=== PATIENT | male | born 1965 | race Caucasian/White ===

== ENCOUNTER 2021-05-31 16:38 | Inpatient (IN) ==
--- NOTE | 2021-05-31 17:13 | Internal Med History&Physical ---
HPI History of Present Illness Patient information: Note initiated : 05/31/21 at 5:03 pm Service Date, if different from initiated Date: [] Patient: John Walker a 55 y/o M admitted on for Diabetic Ketoacidosis. Chief Complaint: [] History of present illness: Mr. Walker is a 55 year old M Presents to the ED in [facility] for generalized weakness and shortness of breath, cough, nausea/vomiting, also complains of abdominal pain abdominal pain. States all the symptoms been going on for about a week. Patient was tested positive for Covid on May 23. Chest x-ray with increased RLL infiltrate and chronic scarring/atelecasis. currently on 3 L NC O2, unknown baseline requirement if any. Patient is cachectic and has a history of dumping syndrome with a history of gastric surgery. He was found to be in DKA with a bicarb of 5 and a pH of 7.13 on VBG. Pseudohyponatremia. Glucose 553. Also hyperkalemic at 6.7, EKG with some peaked T waves and 1 amp of bicarb ordered. Also got calcium gluconate. Lactate within normal limits Vital signs stable. Review of Systems: Pertinent positives as above. Denies headache/fever/chills/chest/diarrhea. Remaining 10 point review of system reviewed negative. [facility] Social History (Updated 05/31/21 @ 17:16 by Franco Flores DO) additional history: SOCIAL HISTORY: Consistent with chronic tobacco use, approximately 1 pack a day. FAMILY HISTORY: Significant for diabetes. PAST MEDICAL HISTORY: Through chart review is consistent with: 1. COPD with a history of chronic infiltrates, status post bronchoscopy with staph in the sputum. 2. Type 2 diabetes. 3. History of short bowel syndrome. 4. History of pancreatitis. 5. Chronic pain syndrome. 6. History of hypertension. 7. Gastroesophageal reflux disease. PAST SURGICAL HISTORY: Significant for: 1. Exploratory laparotomy x2 with partial pancreatectomy and gastrotomy with partial small bowel and large bowel resections for complications of pancreatitis. 2. Splenectomy. 3. Cholecystectomy. ALLERGIES: 1. PENICILLIN CAUSING HIVES. 2. LIBRIUM. 3. LYRICA. [place] [facility] [place]: 1. Duragesic patch. 2. Clonidine 0.1 b.i.d. 3. Metoprolol 100 b.i.d. 4. Lisinopril 10 mg daily. 5. Lantus 6 units daily. 6. Sliding scale insulin. 7. Nexium. 8. Cymbalta 60 mg daily. 9. Flexeril 10 mg b.i.d. 10. Elavil 100 mg daily. 11. Aspirin. MEDS/ALLERGIES Home Medications and Allergies Allergies Allergy/AdvReac Type Severity Reaction Status Date / Time chlordiazepoxide Allergy Severe Difficulty Verified 05/31/21 21:39 [From Librium] Breathing Penicillins Allergy Intermediate Hives Verified 05/31/21 21:39 EXAM Constitutional Exam: General: Alert, Awake, No acute Distress, cachectic Eyes/N/T: EOMI, PERRL, dry MM Head/Neck: neck supple, normocephalic atraumatic CV: RRR, No murmurs, normal s1/s2 Pulm: occaisonal wheeze, nonlabored Abd: soft, TTP lower Quadrants, +BS x4 Ext: no clubbing/cyanosis/edema Neuro: Alert, no focal deficits, moves all extremities, CN 2-12 grossly intact, symmetrical strength b/l upper/lower, sensations intact b/l upper/lower Skin: warm/dry A/P Narrative A/P Narrative: A: *DKA: *Covid pneumonia: *Acute hypoxic respite failure: -on 3L NC *COPD (not on home O2) & chronic scarring on imaging per past notes: *CELESTE on likely CKD II: *Malnutrition with h/o short bowel syndrome *Tobacco abuse: *HTN: *GERD: *Chr pain: *Abd pain: P: -insulin gtt -IVF -f/u chemistry, f/u VBG/BHB tomorrow -Rem(depending on f/u renal fxn)/Dex -IS/Acapella, prn nebs -Proning/mobilization/oob to chair -dietary consult -Medication reconciliation -PT/OT -Smoking cessation counseling -ppx: heparin Time Spent With Patient Time: Total time spent is greater than 50% in coordination of care (as documented) at patient's floor/unit and/or counseling patient:
[2021-05-31] MEDS ORDERED: IPRATROPIUM/ALBUTEROL 3 ML AMPUL.NEB NEB PRN (17:17)
[2021-05-31] MEDS ORDERED: ACETAMINOPHEN 325 MG TABLET PO PRN (17:17)
[2021-05-31] MEDS ORDERED: METOCLOPRAMIDE 10 MG/2 ML VIAL IV PRN (17:17)
[2021-05-31] MEDS ORDERED: REMDESIVIR 200 MG in 0.9 % SODIUM CHLORIDE 250 ML IV ONE (17:22)
[2021-05-31] MEDS ORDERED: REMDESIVIR 100 MG in 0.9 % SODIUM CHLORIDE 250 ML IV SCH (17:30)
[2021-05-31] MEDS ORDERED: LIDOCAINE 2% URO-JET 10 ML JEL.PF.APP UR ONE (21:41)
[2021-05-31] MEDS ORDERED: INSULIN REGULAR, HUMAN 1 UNIT/0.01 ML UNIT ONE (21:53)
[2021-05-31] MEDS: DOCUSATE SODIUM 100 MG CAPSULE PO SCH (22:10)
[2021-05-31] MEDS: FAMOTIDINE/PF 20 MG/2 ML VIAL IV SCH (22:10)
[2021-05-31] MEDS: 0.9 % SODIUM CHLORIDE 10 ML SYRINGE IV SCH (22:11)
[2021-05-31] MEDS: DEXAMETHASONE 10 MG/ML VIAL IV SCH (22:11)
[2021-05-31] MEDS: INSULIN REGULAR, HUMAN 50 UNIT in 0.9 % SODIUM CHLORIDE 99.5 ML IV SCH (22:12)
[2021-05-31] MEDS: 0.9 % SODIUM CHLORIDE 1,000 ML IV SCH ×2 (22:13→23:06)
[2021-05-31] MEDS: HEPARIN 5,000 UNIT/ML VIAL SQ SCH (22:15)
[2021-05-31 23:04] LABS: Appearance,Urine CLEAR (Clear); Bilirubin,Urine Negative (Negative); Color,Urine YELLOW; Culture Indicated,Urine No; Glucose,Urine (UA) >=500 mg/dL (Negative); Ketones,Urine 80 mg/dL (Negative); Leukocyte Esterase,Urine Negative /uL (Negative); Nitrate,Urine Negative (Negative); Protein,Urine Negative (Negative); Urine Blood Negative (Negative); Urine Hyaline Cast 1 /lph (0-2); Urine RBC 0 /hpf (0-3); Urine Squamous Epithelial Cell 0 /hpf (0-4); Urine WBC 0 /hpf (0-4); Urobilinogen,Urine Negative
[2021-05-31 23:20] LABS: Basophils # (Auto) 0.04 K/mcL (0.00-0.30); Basophils % (Auto) 0.1 % (0.0-2.0); Eosinophils # (Auto) 0.06 K/mcL (0.00-0.70); Eosinophils % (Auto) 0.2 % (0.0-7.0); Hematocrit 37.8 % (40.1-51.0); Hemoglobin 12.7 g/dL (13.7-17.5); Lymphocytes # (Auto) 1.34 K/mcL (1.50-4.80); Lymphocytes % (Auto) 4.9 % (15.5-49.0); Mean Cell Volume 93.6 fL (80.0-100.0); Mean Corpuscular HGB Conc 33.6 g/dL (31.0-36.0); Mean Platelet Volume 10.6 fL (7.4-10.4); Monocytes # (Auto) 1.64 K/mcL (0.10-0.90); Monocytes % (Auto) 6.1 % (1.0-12.0); Neutrophils % (Auto) 88.7 % (38.0-78.0); Platelet Count 419 K/mcL (140-440); RBC 4.04 M/mcL (4.63-6.08); Red Cell Distribution Width 13.6 % (11.5-14.5); WBC 27.1 K/mcL (4.5-11.0)
[2021-05-31 23:50] LABS: ALT/SGPT 12 U/L (<40); AST/SGOT 23 U/L (<40); Albumin 3.4 gm/dL (3.2-5.2); Alkaline Phosphatase 158 U/L (39-117); Bilirubin,Direct < 0.2 mg/dL (0-0.3); Bilirubin,Total 0.2 mg/dL (0.1-1.0); Blood Urea Nitrogen 33 mg/dL (6-20); Calcium 9.3 mg/dL (8.6-10.4); Carbon Dioxide 10 mmol/L (22-30); Chloride 92 mmol/L (96-108); Globulin 3.3 gm/dL (2.2-3.7); Glomerular Filtration Rate 39; Glucose 303 mg/dL (70-105); Lactate Dehydrogenase 318 U/L (135-225); Phosphorous 3.4 mg/dL (2.5-4.5); Triglycerides 198 mg/dL (<150); Uric Acid 11.8 mg/dL (2.5-8.0)
[2021-06-01] LABS: Estimated Average Glucose(eAG) 295 mg/dL; Hemoglobin A1C 11.9 % Hgb (4.0-6.0)
[2021-06-01 01:31] LABS: Prealbumin 8.1 mg/dL (20.0-40.0)
[2021-06-01] MEDS: DEXTROSE 5%-NS 1,000 ML IV SCH ×3 (01:34→15:53)
[2021-06-01] MEDS: ONDANSETRON 4 MG/2 ML VIAL IV PRN ×3 (04:39→12:46)
[2021-06-01] MEDS: 0.9 % SODIUM CHLORIDE 10 ML SYRINGE IV SCH ×3 (05:50→20:49)
[2021-06-01] MEDS: INSULIN REGULAR, HUMAN 50 UNIT in 0.9 % SODIUM CHLORIDE 99.5 ML IV SCH (07:17)
[2021-06-01] MEDS ORDERED: HYDROCODONE/APAP 7.5/325MG TABLET PO PRN (07:33)
--- NOTE | 2021-06-01 07:50 | Internal Med Progress Note ---
SUBJECTIVE Subjective Patient information: Note initiated : 06/01/21 at 7:44 am Service Date, if different from initiated Date: [] Patient: John Walker a 55 y/o M admitted on 05/31/21 for Diabetic Ketoacidosis. Chief Complaint: [] Interval history: History of present illness: Mr. Walker is a 55 year old M Presents to the ED in [facility] for generalized weakness and shortness of breath, cough, nausea/vomiting, also complains of abdominal pain abdominal pain. States all the symptoms been going on for about a week. Patient was tested positive for Covid on May 23. Chest x-ray with increased RLL infiltrate and chronic scarring/atelecasis. currently on 3 L NC O2, unknown baseline requirement if any. Patient is cachectic and has a history of dumping syndrome with a history of gastric surgery. He was found to be in DKA with a bicarb of 5 and a pH of 7.13 on VBG. Pseudohyponatremia. Glucose 553. Also hyperkalemic at 6.7, EKG with some peaked T waves and 1 amp of bicarb ordered. Also got calcium gluconate. Lactate within normal limits Vital signs stable. 06/01 Poor sleep last night. DKA improving. On 2 L nasal cannula. Review of Systems: Positive for headache. Denies fever/chills/nausea/vomiting/chest pain/cou gh/dyspnea/diarrhea. Otherwise see above. Constitutional Vitals: Vital Signs Temp Pulse Resp BP Pulse Ox 97.9 F 106 H 19 167/102 93 06/01/21 04:01 06/01/21 07:01 06/01/21 07:01 06/01/21 07:01 06/01/21 07:01 Period Temp Pulse Resp BP Sys/Camara Pulse Ox Last 24 Hr 96.9 F-97.9 F 95-113 19-26 119-182/74-112 89-96 Intake and Output 05/31/21 06/01/21 06/01/21 21:59 05:59 13:59 Intake Total 702 57 Output Total 300 2850 Balance -300 -2148 57 Weight 49.714 kg Intake & Output: Intake & Output 05/31/21 06/01/21 06/01/21 21:59 05:59 13:59 Intake Total 702 57 Output Total 300 2850 Balance -300 -2148 57 Weight 49.714 kg Intake: IV 702 57 Sodium Chloride 0.9% 1,000 ml @ 663 200 mls/hr IV .Q5H [facility] Rx#: [id number] HumuLIN R 50 UNIT In Sodium 39 57 Chloride 0.9% 99.5 ml @ UNIT/ HR IV DUR SHAE Rx#:[id number] Output: Urine Catheter Amount 2850 Void Amount 300 Other: Urine Appearance Clear Clear Uretheral (Farmer) Clear Clear Urine Color Pale Dark Yellow Uretheral (Farmer) Pale Dark Yellow Exam: General: Alert, Awake, No acute Distress, cachectic Eyes/N/T: EOMI, Head/Neck: neck supple, CV: RRR, No murmurs, Pulm: occaisonal wheeze, nonlabored Abd: soft, TTP lower Quadrants but chronic per pt, +BS x4 Ext: no clubbing/cyanosis/edema Neuro: Alert, no focal deficits, moves all extremities, Skin: warm/dry OBJ DATA Labs CBC & Chem 7: 05/31/21 21:45 05/31/21 21:45 Labs: Abnormal Lab Results 05/31/21 05/31/21 05/31/21 21:45 21:45 20:45 WBC 27.1 H RBC 4.04 L Hgb 12.7 L Hct 37.8 L MPV 10.6 H Neut % (Auto) 88.7 H Lymph % (Auto) 4.9 L Lymph # (Auto) 1.34 L [place] # (Auto) 1.64 H Absolute Neutrophils 24.00 H Sodium 132 L Potassium 5.7 H Chloride 92 L Carbon Dioxide 10 L* Anion Gap 30.0 H BUN 33 H Creatinine 1.9 H Glucose 303 H Hemoglobin A1c 11.9 H Osmolality 317 H Uric Acid 11.8 H Alkaline Phosphatase 158 H Lactate Dehydrogenase 318 H Prealbumin 8.1 L Triglycerides 198 H Urine Glucose (UA) Urine Ketones 05/31/21 17:22 WBC RBC Hgb Hct MPV Neut % (Auto) Lymph % (Auto) Lymph # (Auto) [place] # (Auto) Absolute Neutrophils Sodium Potassium Chloride Carbon Dioxide Anion Gap BUN Creatinine Glucose Hemoglobin A1c Osmolality Uric Acid Alkaline Phosphatase Lactate Dehydrogenase Prealbumin Triglycerides Urine Glucose (UA) >=500 A Urine Ketones 80 A Meds: Medications Acetaminophen (Acetaminophen 325 Mg Tablet) 650 mg PO Q4-6HP PRN; Protocol PRN Reason: Per Pain Protocol/Fever > 101 Hydrocodone Bitart/Acetaminophen (Hydrocodone/Apap 7.5/325mg Tablet) 1 tab PO Q6HP PRN; Protocol PRN Reason: Per Pain Protocol Albuterol/Ipratropium (Ipratropium/Albuterol 3 Ml Ampul.Neb) 3 ml NEB Q4HRT PRN PRN Reason: sob Dexamethasone (Dexamethasone 10 Mg/Ml Vial) 6 mg IV DAILY [facility] Last Admin: 05/31/21 22:11 Dose: 6 mg Documented by: Diagnostic Test (Pha) (Accu-Chek 1 Each Strip) 1 each FS Q1 [facility] Last Admin: 06/01/21 07:30 Dose: 1 each Documented by: Docusate Sodium (Docusate Sodium 100 Mg Capsule) 100 mg PO BID [facility] Last Admin: 05/31/21 22:10 Dose: Not Given Documented by: Famotidine (Famotidine/Pf 20 Mg/2 Ml Vial) 20 mg IV HS [facility] Last Admin: 05/31/21 22:10 Dose: 20 mg Documented by: Fentanyl (Fentanyl 25 Mcg Patch) 25 mcg TOPICAL Q72H [facility] Heparin Sodium (Porcine) (Heparin 5,000 Unit/Ml Vial) 5,000 unit SQ Q12 [facility] Last Admin: 05/31/21 22:15 Dose: 5,000 unit Documented by: REMDESIVIR 200 mg/ Sodium (Chloride) 250 mls @ 500 mls/hr IV ONCE ONE Stop: 05/31/21 17:23 Last Admin: 05/31/21 22:43 Dose: Not Given Documented by: REMDESIVIR 100 mg/ Sodium (Chloride) 250 mls @ 500 mls/hr IV Q24H [facility] Stop: 06/03/21 17:31 Last Admin: 05/31/21 22:43 Dose: Not Given Documented by: Insulin Human Regular 50 unit/ (Sodium Chloride) 100 mls @ 0 mls/hr IV DUR [facility]; Protocol Last Titration: 06/01/21 07:19 Dose: 0 unit/h, 0 mls/hr Documented by: Dextrose/Sodium Chloride (Dextrose 5%-Ns Iv Solution) 1,000 mls @ 150 mls/hr IV .Q6H40M [facility] Last Admin: 06/01/21 01:34 Dose: 150 mls/hr Documented by: Metoclopramide HCl (Metoclopramide 10 Mg/2 Ml Vial) 10 mg IV Q6 PRN PRN Reason: nausea] Ondansetron HCl (Ondansetron 4 Mg/2 Ml Vial) 4 mg IV Q4-6HP PRN PRN Reason: Nausea And Vomiting Last Admin: 06/01/21 04:39 Dose: 4 mg Documented by: Sodium Chloride (0.9 % Sodium Chloride 10 Ml Syringe) 10 ml IV Q8 [facility] Last Admin: 06/01/21 05:50 Dose: 10 ml Documented by: A/P Narrative A/P Narrative: A: *DKA-HHS: -A1c 11.9 *Hyperkalemia: 6.7 at outside facility. Improved *Covid pneumonia: *Acute hypoxic respite failure: -on 2L NC *COPD (not on home O2) & chronic scarring on imaging per past notes: *CELESTE on likely CKD II: Cr 2.6 at outside facility *Malnutrition with h/o short bowel syndrome -prealbumin 8 *Tobacco abuse: *HTN: *GERD: *Chr pain/chr abdominal pain: P: -insulin gtt -IVF -f/u chemistry, f/u VBG/BHB -Rem(pending f/u renal fxn)/Dex -IS/Acapella, prn nebs -Proning/mobilization/oob to chair -dietary consult -Medication reconciliation -PT/OT -Smoking cessation counseling -ppx: heparin Time Spent With Patient Time: Total time spent is greater than 50% in coordination of care (as documented) at patient's floor/unit and/or counseling patient: QUALITY VTE Deep Vein Thrombosis/Pulmonary Embolism Present on Admission: No
[2021-06-01 09:00] LABS: ABG Methemoglobin 0.3 % (0.4-1.5); Total Hemoglobin 11.1 gm/Dl (13.5-16.5); VBG Base Excess -2 (-2-2); VBG HCO3 22.5 mmol/L (24.0-28.0); VBG Oxygen Saturation 89.8 % (40.0-70.0); VBG PCO2 36.2 mmHg (41.0-51.0); VBG PH 7.41 U (7.32-7.42); VBG Total CO2 23.6 mmol/L (25.0-29.0)
[2021-06-01] MEDS ORDERED: ENOXAPARIN 40 MG/0.4 ML SYRINGE SQ SCH (09:00)
[2021-06-01] MEDS: HEPARIN 5,000 UNIT/ML VIAL SQ SCH ×2 (09:13→20:47)
[2021-06-01] MEDS: DEXAMETHASONE 10 MG/ML VIAL IV SCH (09:13)
[2021-06-01 09:29] LABS: ALT/SGPT 11 U/L (<40); AST/SGOT 21 U/L (<40); Albumin/Globulin Ratio 0.8 (1.0-2.3); Alkaline Phosphatase 141 U/L (39-117); Bilirubin,Direct < 0.2 mg/dL (0-0.3); Bilirubin,Total 0.3 mg/dL (0.1-1.0); Blood Urea Nitrogen 21 mg/dL (6-20); Calcium 8.9 mg/dL (8.6-10.4); Carbon Dioxide 20 mmol/L (22-30); Chloride 102 mmol/L (96-108); Globulin 3.8 gm/dL (2.2-3.7); Glomerular Filtration Rate 62; Glucose 142 mg/dL (70-105); Lactate Dehydrogenase 321 U/L (135-225); Phosphorous 1.4 mg/dL (2.5-4.5); Triglycerides 90 mg/dL (<150); Uric Acid 9.7 mg/dL (2.5-8.0)
[2021-06-01] MEDS ORDERED: REMDESIVIR 200 MG in 0.9 % SODIUM CHLORIDE 250 ML IV ONE (10:00)
[2021-06-01] MEDS ORDERED: fentaNYL 25 MCG PATCH TOPICAL SCH (10:00)
[2021-06-01] MEDS ORDERED: MAGNESIUM SULFATE 2 GM/50 ML BAG IV ONE (10:07)
[2021-06-01] MEDS: NEUTRA PHOS 1 PACKET PO SCH ×2 (10:16→20:47)
[2021-06-01] MEDS: DOCUSATE SODIUM 100 MG CAPSULE PO SCH ×2 (10:16→20:46)
[2021-06-01] MEDS ORDERED: PROMETHAZINE 25 MG TABLET PO PRN (11:17)
[2021-06-01] MEDS ORDERED: HYDROcodone/APAP (PP) 7.5/325MG TABLET (#4) PO PRN (11:17)
--- NOTE | 2021-06-01 11:21 | XRay Report ---
INDICATION: NG tube placement TECHNIQUE: Supine abdomen. COMPARISON: None FINDINGS:Esophagogastric tube within the stomach. Sidehole of the catheter is at approximately the gastroesophageal junction. There are bilateral, bibasilar infiltrates, right worse than left. There is some small bowel gas but this is nonspecific. There is gas within the transverse colon and splenic flexure. IMPRESSION: Esophagogastric tube in the stomach. Sidehole of the catheter is at the gastroesophageal junction Interpreted and Authenticated by: Ke Geronimo 06/01/21
[2021-06-01] MEDS ORDERED: DEXTROSE 50% 50 ML VIAL IV PRN (11:23)
[2021-06-01] MEDS ORDERED: DEXTROSE 31 GM ORAL.SUSP PO PRN (11:23)
[2021-06-01] MEDS ORDERED: CYCLOBENZAPRINE 10 MG TABLET PO PRN (11:29)
[2021-06-01] MEDS: 0.9 % SODIUM CHLORIDE 1,000 ML IV SCH (11:45)
[2021-06-01] MEDS: INSULIN LISPRO 1 UNIT/0.01 ML UNIT SQ SCH ×4 (11:53→23:59)
[2021-06-01] MEDS: INSULIN GLARGINE, HUMAN 1 UNIT/0.01 ML SQ SCH (12:32)
[2021-06-01 12:41] LABS: Hematocrit 33.3 % (40.1-51.0); Mean Cell Volume 87.2 fL (80.0-100.0); Mean Platelet Volume 10.7 fL (7.4-10.4); Platelet Count 406 K/mcL (140-440); RBC 3.82 M/mcL (4.63-6.08); Red Cell Distribution Width 13.1 % (11.5-14.5); WBC 26.9 K/mcL (4.5-11.0)
[2021-06-01] MEDS ORDERED: [UNRECOGNIZED DRUG - OTHER] PO SCH (13:00)
[2021-06-01] MEDS ORDERED: LIPASE PROTEASE AMYLASE PO SCH (13:00)
[2021-06-01] MEDS: LIPASE/PROTEASE/AMYLASE 1 CAP CAPSULE PO SCH ×3 (13:36→20:47)
[2021-06-01] MEDS ORDERED: IOPAMIDOL 100 ML BOTTLE IV ONE (14:16)
--- NOTE | 2021-06-01 14:50 | Cat Scan Report ---
INDICATION: abdominal pain COMPARISON: Previous CT scans dated 07/12/2020 and 06/10/2019 TECHNIQUE: Axial images were obtained through the abdomen and pelvis. Sagittally and coronally reformatted images. 80 mL Isovue 370 injected intravenously. Oral contrast material was given through the nasogastric tube FINDINGS: Lung bases:Patient has interstitial fibrosis. There are superimposed infiltrates of both lung bases consistent with this patient's known covid pneumonia. Liver:Negative. No focal intrahepatic mass. No focal abnormality. Liver contour is smooth. No evidence for cirrhosis Gallbladder, bilary:Gallbladder is not identified. Previous examination demonstrated intra and extrahepatic bile duct dilatation. Intrahepatic duct dilatation has resolved. Common bile measures 7 mm maximally. No detectable choledocholithiasis Spleen:Spleen is not identified consistent with previous splenectomy Pancreas:Pancreas is suboptimally visualized due to cachexia. No detectable pancreatic mass. Adrenal glands:Negative Kidneys, ureters, bladder:Kidneys are negative. No solid or cystic mass. There is no hydronephrosis. No detectable calculi. There is no hydroureter. Urinary bladder is markedly abnormal. There is a Farmer catheter in place. Despite this the bladder is partially distended and contains gas and urine. Bladder wall is markedly thickened and ulcerated. There is no bladder perforation. Appearance is consistent with severe cystitis. Gastrointestinal:Colon is negative. No detectable colonic mass. Can't constipation. Small bowel is mildly prominent but without mechanical small bowel obstruction. There is contrast material within the colon. Appendix: The appendix is nonvisualized Vascular:Severe atherosclerotic calcification. Infrarenal abdominal aorta is densely calcified. No abdominal aortic aneurysm. There is severe calcification within the common iliac arteries bilaterally. Probable short segment occlusion of the right common iliac artery. External iliac arteries are opacified. Lymphatic:No retroperitoneal or mesenteric adenopathy Mesentery, peritoneum: No free intraperitoneal fluid. No mesenteric or retroperitoneal mass. No intra-abdominal abscess. Reproductive:Prostate is not enlarged Musculoskeletal:Previous L4 kyphoplasty or vertebroplasty. There is a compression deformity of the L1 vertebral body. This is unchanged since 07/12/2020 no lytic lesions. Sacrum is negative. There is no fracture. Pelvis is negative. No fracture or lytic lesions. Hips are negative. No abdominal wall or inguinal hernia There is cachexia with very little subcutaneous fat and almost no intra-abdominal fat. IMPRESSION: 1. Abnormal lungs consistent with pulmonary fibrosis and superimposed acute infiltrate consistent with this patient's known covid pneumonia 2. Previous cholecystectomy. Resolution of intrahepatic bile duct dilatation 3. Previous splenectomy 4. Pancreas is poorly visualized. No pancreatic mass 5. Markedly abnormal urinary bladder. There is a Farmer catheter in place. Bladder wall is significantly thickened with evidence for ulceration. Severe cystitis suspected 6. No intra-abdominal abscess 7. Severe atherosclerotic calcification. Dense calcification of the common iliac arteries with possible occlusion of the right common iliac artery 8. Cachexia The exam was performed using radiation dose optimization techniques including, but not limited to, automated exposure control, adjustment of the mA and/or kV according to patient size and use of iterative reconstruction technique. Interpreted and Authenticated by: Ke Geronimo 06/01/21
[2021-06-01] MEDS: NYSTATIN 500,000 UNITS/5 ML ORAL.SUSP SSW SCH ×3 (15:00→20:46)
[2021-06-01] MEDS: PREGABALIN 100 MG CAPSULE PO SCH ×2 (15:05→20:46)
[2021-06-01] MEDS: FAMOTIDINE/PF 20 MG/2 ML VIAL IV SCH (20:46)
[2021-06-01] MEDS ORDERED: AMITRIPTYLINE 25 MG TABLET PO SCH (21:00)
[2021-06-02] MEDS: 0.9 % SODIUM CHLORIDE 1,000 ML IV SCH (01:41)
[2021-06-02] MEDS: INSULIN LISPRO 1 UNIT/0.01 ML UNIT SQ SCH ×5 (04:00→20:15)
[2021-06-02] MEDS: 0.9 % SODIUM CHLORIDE 10 ML SYRINGE IV SCH ×3 (05:45→20:22)
[2021-06-02 06:35] LABS: Basophils # (Auto) 0.03 K/mcL (0.00-0.30); Basophils % (Auto) 0.1 % (0.0-2.0); Eosinophils # (Auto) 0 K/mcL (0.00-0.70); Eosinophils % (Auto) 0 % (0.0-7.0); Hematocrit 35.8 % (40.1-51.0); Lymphocytes # (Auto) 0.75 K/mcL (1.50-4.80); Lymphocytes % (Auto) 3.7 % (15.5-49.0); Mean Cell Volume 92.7 fL (80.0-100.0); Mean Corpuscular HGB Conc 33.5 g/dL (31.0-36.0); Mean Platelet Volume 10.9 fL (7.4-10.4); Monocytes # (Auto) 0.85 K/mcL (0.10-0.90); Monocytes % (Auto) 4.2 % (1.0-12.0); Platelet Count 423 K/mcL (140-440); RBC 3.86 M/mcL (4.63-6.08); Red Cell Distribution Width 13.9 % (11.5-14.5); WBC 20.4 K/mcL (4.5-11.0)
[2021-06-02 07:09] LABS: ALT/SGPT 13 U/L (<40); AST/SGOT 23 U/L (<40); Albumin 2.9 gm/dL (3.2-5.2); Albumin/Globulin Ratio 0.7 (1.0-2.3); Alkaline Phosphatase 150 U/L (39-117); Bilirubin,Direct < 0.2 mg/dL (0-0.3); Bilirubin,Total 0.2 mg/dL (0.1-1.0); Blood Urea Nitrogen 15 mg/dL (6-20); Calcium 8.7 mg/dL (8.6-10.4); Carbon Dioxide 25 mmol/L (22-30); Chloride 100 mmol/L (96-108); Globulin 3.9 gm/dL (2.2-3.7); Glomerular Filtration Rate 101; Glucose 92 mg/dL (70-105); Lactate Dehydrogenase 359 U/L (135-225); Phosphorous 3.2 mg/dL (2.5-4.5); Triglycerides 84 mg/dL (<150); Uric Acid 6.2 mg/dL (2.5-8.0)
[2021-06-02] MEDS ORDERED: PANTOPRAZOLE 40 MG TABLET PO SCH (07:30)
--- NOTE | 2021-06-02 07:35 | Internal Med Progress Note ---
SUBJECTIVE Subjective Patient information: Note initiated : 06/02/21 at 7:28 am Service Date, if different from initiated Date: [] Patient: John Walker a 55 y/o M admitted on 05/31/21 for Diabetic Ketoacidosis. Chief Complaint: [] Interval history: History of present illness: Mr. Walker is a 55 year old M Presents to the ED in [facility] for generalized weakness and shortness of breath, cough, nausea/vomiting, also complains of abdominal pain abdominal pain. States all the symptoms been going on for about a week. Patient was tested positive for Covid on May 23. Chest x-ray with increased RLL infiltrate and chronic scarring/atelecasis. currently on 3 L NC O2, unknown baseline requirement if any. Patient is cachectic and has a history of dumping syndrome with a history of gastric surgery. He was found to be in DKA with a bicarb of 5 and a pH of 7.13 on VBG. Pseudohyponatremia. Glucose 553. Also hyperkalemic at 6.7, EKG with some peaked T waves and 1 amp of bicarb ordered. Also got calcium gluconate. Lactate within normal limits Vital signs stable. 06/01 Poor sleep last night. DKA improving. On 2 L nasal cannula. 06/02 Laboratory much improved although still has a high white blood cell count. Urine unremarkable. No obvious source of infection. CT abdomen pelvis unremarkable. Will check procalcitonin. Patient currently sleeping no overnight event or new complaints. Awakens to voice but very sleepy. Review of Systems: Constitutional Vitals: Vital Signs Temp Pulse Resp BP Pulse Ox 98.0 F 107 H 21 156/103 92 06/02/21 00:01 06/02/21 05:01 06/02/21 07:01 06/02/21 07:01 06/02/21 07:01 Period Temp Pulse Resp BP Sys/Camara Pulse Ox Last 24 Hr 98.0 F-99.3 F 33-110 16-28 127-166/76-107 89-96 Intake and Output 06/01/21 06/02/21 06/02/21 22:59 05:59 13:59 Intake Total Output Total Balance Weight Intake & Output: Intake & Output 06/01/21 06/02/21 06/02/21 22:59 05:59 13:59 Intake Total Output Total Balance Weight Intake: IV Sodium Chloride 0.9% 1,000 ml @ 75 mls/hr IV .[id number] [facility] Rx#: [id number] Oral Output: Urine Catheter Amount Other: Urine Appearance Uretheral (Farmer) Urine Color Uretheral (Farmer) Urine Odor Uretheral (Farmer) Exam: General: sleeping, No acute Distress, cachectic Eyes/N/T: EOMI, Head/Neck: neck supple, CV: RRR, No murmurs, Pulm: occaisonal wheeze, nonlabored Abd: soft, chronic abdominal tenderness, +BS x4 Ext: no clubbing/cyanosis/edema Neuro: no focal deficits, moves all extremities, Skin: warm/dry OBJ DATA Labs CBC & Chem 7: 06/02/21 05:25 06/02/21 05:25 Labs: Abnormal Lab Results 06/02/21 06/02/21 06/01/21 05:25 05:25 17:53 WBC 20.4 H RBC 3.86 L Hgb 12.0 L Hct 35.8 L MPV 10.9 H Neut % (Auto) 92.0 H Lymph % (Auto) 3.7 L Lymph # (Auto) 0.75 L [place] # (Auto) Absolute Neutrophils 18.79 H ABG Methemoglobin VBG pCO2 VBG pO2 VBG HCO3 VBG Total CO2 VBG O2 Saturation Carboxyhemoglobin Total Hemoglobin Sodium Potassium Chloride Carbon Dioxide Anion Gap BUN Creatinine Glucose Hemoglobin A1c Osmolality Uric Acid Phosphorus Alkaline Phosphatase 150 H Lactate Dehydrogenase 359 H Albumin 2.9 L Globulin 3.9 H Albumin/Globulin Ratio 0.7 L Prealbumin Triglycerides Beta-Hydroxybutyrate 1.00 H Urine Glucose (UA) Urine Ketones 06/01/21 06/01/21 06/01/21 08:30 07:53 07:53 WBC 26.9 H RBC 3.82 L Hgb 12.0 L Hct 33.3 L MPV 10.7 H Neut % (Auto) Lymph % (Auto) Lymph # (Auto) [place] # (Auto) Absolute Neutrophils ABG Methemoglobin 0.3 L VBG pCO2 36.2 L VBG pO2 71.0 H VBG HCO3 22.5 L VBG Total CO2 23.6 L VBG O2 Saturation 89.8 H Carboxyhemoglobin 4.4 H Total Hemoglobin 11.1 L Sodium Potassium Chloride Carbon Dioxide 20 L Anion Gap BUN 21 H Creatinine 1.3 H Glucose 142 H Hemoglobin A1c Osmolality Uric Acid 9.7 H Phosphorus 1.4 L Alkaline Phosphatase 141 H Lactate Dehydrogenase 321 H Albumin 3.0 L Globulin 3.8 H Albumin/Globulin Ratio 0.8 L Prealbumin Triglycerides Beta-Hydroxybutyrate Urine Glucose (UA) Urine Ketones 05/31/21 05/31/21 05/31/21 21:45 21:45 20:45 WBC 27.1 H RBC 4.04 L Hgb 12.7 L Hct 37.8 L MPV 10.6 H Neut % (Auto) 88.7 H Lymph % (Auto) 4.9 L Lymph # (Auto) 1.34 L [place] # (Auto) 1.64 H Absolute Neutrophils 24.00 H ABG Methemoglobin VBG pCO2 VBG pO2 VBG HCO3 VBG Total CO2 VBG O2 Saturation Carboxyhemoglobin Total Hemoglobin Sodium 132 L Potassium 5.7 H Chloride 92 L Carbon Dioxide 10 L* Anion Gap 30.0 H BUN 33 H Creatinine 1.9 H Glucose 303 H Hemoglobin A1c 11.9 H Osmolality 317 H Uric Acid 11.8 H Phosphorus Alkaline Phosphatase 158 H Lactate Dehydrogenase 318 H Albumin Globulin Albumin/Globulin Ratio Prealbumin 8.1 L Triglycerides 198 H Beta-Hydroxybutyrate Urine Glucose (UA) Urine Ketones 05/31/21 17:22 WBC RBC Hgb Hct MPV Neut % (Auto) Lymph % (Auto) Lymph # (Auto) [place] # (Auto) Absolute Neutrophils ABG Methemoglobin VBG pCO2 VBG pO2 VBG HCO3 VBG Total CO2 VBG O2 Saturation Carboxyhemoglobin Total Hemoglobin Sodium Potassium Chloride Carbon Dioxide Anion Gap BUN Creatinine Glucose Hemoglobin A1c Osmolality Uric Acid Phosphorus Alkaline Phosphatase Lactate Dehydrogenase Albumin Globulin Albumin/Globulin Ratio Prealbumin Triglycerides Beta-Hydroxybutyrate Urine Glucose (UA) >=500 A Urine Ketones 80 A Meds: Medications Acetaminophen (Acetaminophen 325 Mg Tablet) 650 mg PO Q4-6HP PRN; Protocol PRN Reason: Per Pain Protocol/Fever > 101 Hydrocodone Bitart/Acetaminophen (Hydrocodone/Apap 7.5/325mg Tablet) 1 tab PO Q6HP PRN; Protocol PRN Reason: Per Pain Protocol Last Admin: 06/01/21 15:54 Dose: 1 tab Documented by: Albuterol/Ipratropium (Ipratropium/Albuterol 3 Ml Ampul.Neb) 3 ml NEB Q4HRT PRN PRN Reason: sob Amitriptyline HCl (Amitriptyline 25 Mg Tablet) 150 mg PO HS [facility] Last Admin: 06/01/21 20:47 Dose: 150 mg Documented by: Lipase/Protease/Amylase (Lipase/Protease/Amylase 1 Cap Capsule) 3 cap PO CCHS [facility] Last Admin: 06/01/21 20:47 Dose: 3 cap Documented by: Cyclobenzaprine HCl (Cyclobenzaprine 10 Mg Tablet) 10 mg PO TIDP PRN PRN Reason: Muscle Spasm Dexamethasone (Dexamethasone 10 Mg/Ml Vial) 6 mg IV DAILY [facility] Last Admin: 06/01/21 09:13 Dose: 6 mg Documented by: Dextrose (Dextrose 50% 50 Ml Vial) 0 ml IV UD PRN PRN Reason: Hypoglycemia Diagnostic Test (Pha) (Accu-Chek 1 Each Strip) 1 each FS Q4 [facility] Last Admin: 06/02/21 04:00 Dose: 1 each Documented by: Docusate Sodium (Docusate Sodium 100 Mg Capsule) 100 mg PO BID [facility] Last Admin: 06/01/21 20:46 Dose: 100 mg Documented by: Duloxetine HCl (Duloxetine 30 Mg Capsule) 60 mg PO DAILY [facility] Famotidine (Famotidine/Pf 20 Mg/2 Ml Vial) 20 mg IV [facility] Last Admin: 06/01/21 20:46 Dose: 20 mg Documented by: Fentanyl (Fentanyl 25 Mcg Patch) 25 mcg TOPICAL Q72H [facility] Last Admin: 06/01/21 08:26 Dose: 25 mcg Documented by: Glucose (Dextrose 31 Gm Oral.Susp) 15 gm PO PRN PRN PRN Reason: Hypoglycemia Heparin Sodium (Porcine) (Heparin 5,000 Unit/Ml Vial) 5,000 unit SQ Q12 [facility] Last Admin: 06/01/21 20:47 Dose: 5,000 unit Documented by: REMDESIVIR 100 mg/ Sodium (Chloride) 250 mls @ 500 mls/hr IV DAILY [facility] Stop: 06/05/21 09:29 Sodium Chloride (Sodium Chloride 0.9%) 1,000 mls @ 75 mls/hr IV .[id number] [facility] Stop: 06/02/21 14:24 Last Admin: 06/02/21 01:41 PST Dose: 75 mls/hr Documented by: Insulin Glargine (Insulin Glargine, Human 1 Unit/0.01 Ml) 20 unit SQ DAILY [facility] Last Admin: 06/01/21 12:32 Dose: 20 units Documented by: Insulin Human Lispro (Insulin Lispro 1 Unit/0.01 Ml Unit) 0 unit SQ Q4 [facility]; Protocol Last Admin: 06/02/21 04:00 Dose: Not Given Documented by: Lisinopril (Lisinopril 20 Mg Tablet) 20 mg PO DAILY [facility] Metoclopramide HCl (Metoclopramide 10 Mg/2 Ml Vial) 10 mg IV Q6 PRN PRN Reason: nausea] Nystatin (Nystatin 500,000 Units/5 Ml Oral.Susp) 500,000 units SSW QID [facility] Last Admin: 06/01/21 20:46 Dose: 500,000 units Documented by: Ondansetron HCl (Ondansetron 4 Mg/2 Ml Vial) 4 mg IV Q4-6HP PRN PRN Reason: Nausea And Vomiting Last Admin: 06/01/21 12:46 Dose: 4 mg Documented by: Pantoprazole Sodium (Pantoprazole 40 Mg Tablet) 40 mg PO QAMAC [facility] Potassium/Phosphorus/Sodium (Neutra Phos 1 Packet) 2 packet PO BID [facility] Last Admin: 06/01/21 20:47 Dose: 2 packet Documented by: Pregabalin (Pregabalin 100 Mg Capsule) 100 mg PO TID [facility] Last Admin: 06/01/21 20:46 Dose: 100 mg Documented by: Promethazine HCl (Promethazine 25 Mg Tablet) 25 mg PO Q4-6HP PRN PRN Reason: Nausea Last Admin: 06/01/21 15:53 Dose: 25 mg Documented by: Sodium Chloride (0.9 % Sodium Chloride 10 Ml Syringe) 10 ml IV Q8 [facility] Last Admin: 06/02/21 05:45 Dose: 10 ml Documented by: ABG Interpretation ABG results: 06/01/21 08:30 ABG Methemoglobin 0.3 L VBG pH 7.41 VBG pCO2 36.2 L VBG pO2 71.0 H VBG HCO3 22.5 L VBG Total CO2 23.6 L VBG O2 Saturation 89.8 H VBG Base Excess -2 A/P Narrative A/P Narrative: A: *DKA-HHS: resolved -A1c 11.9 *Hyperkalemia: 6.7 at outside facility. resolved *Covid pneumonia: -leukocytosis, *Acute hypoxic respite failure: -on 2L NC *COPD (not on home O2) & chronic scarring on imaging per past notes: *CELESTE on likely CKD II: Cr 2.6 at outside facility -resolved *Malnutrition with h/o short bowel syndrome -prealbumin 8 *Tobacco abuse: *HTN: on lisinopril *GERD: *Chr pain/chr abdominal pain: *Chronic pancreatitis: P: -insulin gtt off to now SQ and SSI -IVF off today -Wean O2 as able -Rem/Dex -IS/Acapella, prn nebs -Proning/mobilization/oob to chair -dietary consult -Medication reconciliation -PT/OT -Smoking cessation counseling -ppx: heparin / home ppi Time Spent With Patient Time: Total time spent is greater than 50% in coordination of care (as documented) at patient's floor/unit and/or counseling patient: QUALITY VTE Deep Vein Thrombosis/Pulmonary Embolism Present on Admission: No
[2021-06-02] MEDS: LIPASE/PROTEASE/AMYLASE 1 CAP CAPSULE PO SCH ×4 (08:06→20:16)
--- NOTE | 2021-06-02 08:24 | Discharge Summary ---
Discharge Provider Provider Patient information: Note initiated : 06/02/21 at 8:21 am Service Date, if different from initiated Date: [] Patient: John Walker 55 y/o M admitted on 05/31/21 for Diabetic Ketoacidosis. Chief Complaint: [] Date of admission: 05/31/21 21:13 Primary care physician: Unknown Unknown Discharge Meds Discharge Medications Home Medications Dexilant 80 mg PO DAILY 06/01/21 [History Confirmed 06/01/21 Last Taken Unknown] Tresiba FlexTouch U-100 20 unit SUBCUT DAILY 06/01/21 [History Confirmed 06/01/21 Last Taken Unknown] Zenpep 3 cap PO QID 06/01/21 [History Confirmed 06/01/21 Last Taken Unknown] albuterol sulfate [Ventolin HFA] 2 puff INHALATION Q4-6HP PRN 06/01/21 [History Confirmed 06/01/21 Last Taken Unknown] amitriptyline 150 mg PO QHS 06/01/21 [History Confirmed 06/01/21 Last Taken Unknown] cyclobenzaprine 10 mg PO Q8H PRN 06/01/21 [History Confirmed 06/01/21 Last Taken Unknown] duloxetine 60 mg PO DAILY 06/01/21 [History Confirmed 06/01/21 Last Taken Unknown] ergocalciferol (vitamin D2) [Vitamin D2] 1,250 mcg PO 3XW 06/01/21 [History Confirmed 06/01/21 Last Taken Unknown] fentanyl 1 patch TOPICAL Q72H 06/01/21 [History Confirmed 06/01/21 Last Taken Unknown] hydrocodone-acetaminophen 1 tab PO Q6HP PRN 06/01/21 [History Confirmed 06/01/21 Last Taken Unknown] lisinopril 20 mg PO DAILY 06/01/21 [History Confirmed 06/01/21 Last Taken Unknown] ondansetron 8 - 24 mg TRANSLINGUAL Q4HP PRN 06/01/21 [History Confirmed 06/01/21 Last Taken Unknown] pregabalin 150 mg PO TID 06/01/21 [History Confirmed 06/01/21 Last Taken Unknown] promethazine 25 mg PO Q4-6HP PRN 06/01/21 [History Confirmed 06/01/21 Last Taken Unknown] COURSE Hospital Course Hospital course: Presents to the ED in [place] [facility] for generalized weakness and shortness of breath, cough, nausea/vomiting, also complains of abdominal pain abdominal pain. States all the symptoms been going on for about a week. Patient was tested positive for Covid on May 23. Chest x-ray with increased RLL infiltrate and chronic scarring/atelecasis. currently on 3 L NC O2, unknown baseline requirement if any. Patient is cachectic and has a history of dumping syndrome with a history of gastric surgery. He was found to be in DKA with a bicarb of 5 and a pH of 7.13 on VBG. Pseudohyponatremia. Glucose 553. Also hyperkalemic at 6.7, EKG with some peaked T waves and 1 amp of bicarb ordered. Also got calcium gluconate. Lactate within normal limits Vital signs stable. 06/01 Poor sleep last night. DKA improving. On 2 L nasal cannula. 06/02 Laboratory much improved although still has a high white blood cell count. Urine unremarkable. No obvious source of infection. CT abdomen pelvis unremarkable. Will check procalcitonin. Patient currently sleeping no overnight event or new complaints. Awakens to voice but very sleepy. Patient high risk for readmission given comorbidities and current health status A: *DKA-HHS: resolved -A1c 11.9 *Hyperkalemia: 6.7 at outside facility. resolved *Covid pneumonia: *Acute hypoxic respiratorye failure: -on 2L NC *COPD (not on home O2) & chronic scarring on imaging per past notes: *CELESTE on likely CKD II: Cr 2.6 at outside facility *Malnutrition with h/o short bowel syndrome -prealbumin 8 *Tobacco abuse: *HTN: on lisinopril *GERD: *Chr pain/chr abdominal pain: *Chronic pancreatitis: *Generalized weakness/debility Discharge diagnosis: DKA hyperkalemia Covid pneumonia acute hypoxic respite failure acute kidney Secondary discharge diagnosis: Acute kidney injury COPD malnutrition tobacco abuse hypertension GERD chronic pain chronic pancreatitis Time Spent with Patient Time attestation: Total time spent providing and/or coordinating discharge services: Time spent: Greater than 30 minutes EXAM Constitutional Vitals: Temp Pulse Resp BP Pulse Ox 97.9 F 107 H 16 154/100 91 06/02/21 08:01 06/02/21 05:01 06/02/21 08:01 06/02/21 08:06/02/21 08:01 Discharge Data Data Completed and Pending Labs on day of discharge: Labs from last 24 hours 06/02/21 06/02/21 06/02/21 05:25 05:25 05:25 WBC RBC Hgb Hct MCV MCH MCHC RDW Plt Count MPV Neut % (Auto) Lymph % (Auto) [place] % (Auto) Eos % (Auto) Baso % (Auto) Lymph # (Auto) [place] # (Auto) Eos # (Auto) Baso # (Auto) Absolute Neutrophils Platelet Estimate Pending RBC Morphology Pending Sodium 138 Potassium 4.0 Chloride 100 Carbon Dioxide 25 Anion Gap 13.0 BUN 15 Creatinine 0.8 GFR Calculation 101 Glucose 92 Osmolality Uric Acid 6.2 Calcium 8.7 Phosphorus 3.2 Magnesium 1.6 Total Bilirubin 0.2 Direct Bilirubin < 0.2 GGT 42 AST 23 ALT 13 Alkaline Phosphatase 150 H Lactate Dehydrogenase 359 H Total Protein 6.8 Albumin 2.9 L Globulin 3.9 H Albumin/Globulin Ratio 0.7 L Triglycerides 84 Beta-Hydroxybutyrate Procalcitonin 0.16 H 06/02/21 06/01/21 06/01/21 05:25 17:53 07:53 WBC 20.4 H RBC 3.86 L Hgb 12.0 L Hct 35.8 L MCV 92.7 MCH 31.1 MCHC 33.5 RDW 13.9 Plt Count 423 MPV 10.9 H Neut % (Auto) 92.0 H Lymph % (Auto) 3.7 L [place] % (Auto) 4.2 Eos % (Auto) 0 Baso % (Auto) 0.1 Lymph # (Auto) 0.75 L [place] # (Auto) 0.85 Eos # (Auto) 0 Baso # (Auto) 0.03 Absolute Neutrophils 18.79 H Platelet Estimate RBC Morphology Sodium Potassium Chloride Carbon Dioxide Anion Gap BUN Creatinine GFR Calculation Glucose Osmolality 293 Uric Acid Calcium Phosphorus Magnesium Total Bilirubin Direct Bilirubin GGT AST ALT Alkaline Phosphatase Lactate Dehydrogenase Total Protein Albumin Globulin Albumin/Globulin Ratio Triglycerides Beta-Hydroxybutyrate 1.00 H Procalcitonin 06/01/21 06/01/21 07:53 07:53 WBC 26.9 H RBC 3.82 L Hgb 12.0 L Hct 33.3 L MCV 87.2 MCH 31.4 MCHC 36.0 RDW 13.1 Plt Count 406 MPV 10.7 H Neut % (Auto) TNP Lymph % (Auto) TNP [place] % (Auto) TNP Eos % (Auto) TNP Baso % (Auto) TNP Lymph # (Auto) TNP [place] # (Auto) TNP Eos # (Auto) TNP Baso # (Auto) TNP Absolute Neutrophils TNP Platelet Estimate RBC Morphology Sodium 136 Potassium 4.5 Chloride 102 Carbon Dioxide 20 L Anion Gap 14.0 BUN 21 H Creatinine 1.3 H GFR Calculation 62 Glucose 142 H Osmolality Uric Acid 9.7 H Calcium 8.9 Phosphorus 1.4 L Magnesium 1.6 Total Bilirubin 0.3 Direct Bilirubin < 0.2 GGT 39 AST 21 ALT 11 Alkaline Phosphatase 141 H Lactate Dehydrogenase 321 H Total Protein 6.8 Albumin 3.0 L Globulin 3.8 H Albumin/Globulin Ratio 0.8 L Triglycerides 90 Beta-Hydroxybutyrate Procalcitonin Discharge Plan Patient/Caregiver Discharge Instructions Activity: increase activity as tolerated Diet: Consistent Carbohydrate Activity Restrictions/Additional Instructions: Follow-up with PCP in 3 to 7 days . patient will need home oxygen for Covid pneumonia. Follow-up with dietitian outpatient. Prescriptions: Continued cyclobenzaprine 10 mg tablet 10 mg PO Q8H PRN (Reason: Pain) RF: 0 amitriptyline 150 mg tablet 150 mg PO QHS RF: 0 Dexilant 60 mg capsule,biphase delayed releas 80 mg PO DAILY RF: 0 fentanyl 50 mcg/hr patch 72 hour 1 patch topical Q72H RF: 0 hydrocodone-acetaminophen 7.5-325 mg tablet 1 tab PO Q6HP PRN (Reason: Pain) RF: 0 lisinopril 20 mg tablet 20 mg PO DAILY RF: 0 ondansetron 8 mg tablet,disintegrating 8 - 24 mg translingual Q4HP PRN (Reason: Nausea) RF: 0 promethazine 25 mg tablet 25 mg PO Q4-6HP PRN (Reason: Nausea) RF: 0 pregabalin 150 mg capsule 150 mg PO TID RF: 0 Zenpep 10,000-32,000 -42,000 unit capsule,delayed release(DR/EC) 3 cap PO QID RF: 0 Tresiba FlexTouch U-100 100 unit/mL (3 mL) insulin pen 20 unit SUBCUT DAILY RF: 0 albuterol sulfate [Ventolin HFA] 90 mcg/actuation HFA aerosol inhaler 2 puff INHALATION Q4-6HP PRN (Reason: Shortness Of Breath) RF: 0 duloxetine 60 mg capsule,delayed release(DR/EC) 60 mg PO DAILY RF: 0 ergocalciferol (vitamin D2) [Vitamin D2] 1,250 mcg (50,000 unit) capsule 1,250 mcg PO 3XW RF: 0 Follow Up Plan Patient Disposition: Xfer SNF Prognosis: Undetermined Rehab Potential: Fair I certify that the patient requires SNF services: Yes Overall status at discharge: patient is progressing back to baseline QUALITY VTE Deep Vein Thrombosis/Pulmonary Embolism Present on Admission: No
[2021-06-02 08:45] LABS: Band Neutrophils % 2 % (0-10); Lymphocytes % 5 % (15-49); Monocytes % (Manual) 1 % (1-12); Platelet Estimate NORMAL (Normal); RBC Morphology NORMAL (Normal); Segmented Neutrophils % 92 % (38-78)
[2021-06-02] MEDS ORDERED: MAGNESIUM SULFATE 8.12 MEQ in DEXTROSE 5% IN WATER 50 ML IV ONE (09:00)
[2021-06-02] MEDS ORDERED: LISINOPRIL 20 MG TABLET PO SCH (09:00)
[2021-06-02] MEDS ORDERED: DULoxetine 30 MG CAPSULE PO SCH (09:00)
[2021-06-02] MEDS ORDERED: REMDESIVIR 100 MG in 0.9 % SODIUM CHLORIDE 250 ML IV SCH (09:00)
[2021-06-02] MEDS: DEXAMETHASONE 10 MG/ML VIAL IV SCH (09:14)
[2021-06-02] MEDS: HEPARIN 5,000 UNIT/ML VIAL SQ SCH ×2 (09:14→20:20)
[2021-06-02] MEDS: INSULIN GLARGINE, HUMAN 1 UNIT/0.01 ML SQ SCH (09:15)
[2021-06-02] MEDS: NYSTATIN 500,000 UNITS/5 ML ORAL.SUSP SSW SCH ×4 (09:50→20:17)
[2021-06-02] MEDS: NEUTRA PHOS 1 PACKET PO SCH ×2 (09:50→20:16)
[2021-06-02] MEDS: PREGABALIN 100 MG CAPSULE PO SCH ×3 (09:50→20:16)
[2021-06-02] MEDS: DOCUSATE SODIUM 100 MG CAPSULE PO SCH ×2 (09:50→20:16)
[2021-06-02] MEDS ORDERED: IOPAMIDOL 100 ML BOTTLE IV ONE (11:41)
[2021-06-02] MEDS ORDERED: CYCLOBENZAPRINE 10 MG TABLET PO PRN (11:41)
[2021-06-02] MEDS ORDERED: ACETAMINOPHEN 325 MG TABLET PO PRN (11:41)
[2021-06-02] MEDS ORDERED: 0.9 % SODIUM CHLORIDE 1,000 ML IV SCH (11:41)
[2021-06-02] MEDS ORDERED: IPRATROPIUM/ALBUTEROL 3 ML AMPUL.NEB NEB PRN (11:41)
[2021-06-02] MEDS ORDERED: METOCLOPRAMIDE 10 MG/2 ML VIAL IV PRN (11:41)
[2021-06-02] MEDS ORDERED: PROMETHAZINE 25 MG TABLET PO PRN (11:41)
[2021-06-02] MEDS ORDERED: ONDANSETRON 4 MG/2 ML VIAL IV PRN (11:41)
[2021-06-02] MEDS ORDERED: DEXTROSE 31 GM ORAL.SUSP PO PRN (11:41)
[2021-06-02] MEDS ORDERED: FUROSEMIDE 20 MG/2 ML VIAL IV ONE (12:29)
[2021-06-02] MEDS: LISINOPRIL 20 MG TABLET PO SCH (13:02)
--- NOTE | 2021-06-02 13:28 | XRay Report ---
INDICATION: Increased o2 needs TECHNIQUE: AP portable upright chest x-ray COMPARISON: None FINDINGS: Lungs:Bibasilar pulmonary parenchymal infiltrates with bibasilar predominance. When allowances are made for differences in technique there is been interval worsening.. This is consistent with pneumonia. There is probable bilateral emphysema. Heart, vascular:No significant cardiomegaly. Pulmonary vascularity is normal. No pulmonary edema or pulmonary congestion Mediastinum, fam:No mediastinal widening. No hilar mass Pleura:No pleural fluid. No pleural-based mass or calcification Skeletal:Negative. IMPRESSION: 1. Findings consistent with pneumonia superimposed upon underlying emphysema 2. Interval worsening since 05/31/2021 Interpreted and Authenticated by: Ke Geronimo 06/02/21
[2021-06-02] MEDS ORDERED: LACTOPEROXI/GLUC OXID/POT THIO 1 EACH GEL..EA. TOPICAL PRN (14:24)
[2021-06-02] MEDS: morphine 2 MG/ML VIAL IV PRN ×2 (15:14→20:14)
[2021-06-02] MEDS: DEXTROSE 50% 50 ML VIAL IV PRN (20:13)
[2021-06-02] MEDS: AMITRIPTYLINE 25 MG TABLET PO SCH (20:16)
[2021-06-02] MEDS: FAMOTIDINE/PF 20 MG/2 ML VIAL IV SCH (20:21)
[2021-06-02] MEDS ORDERED: AMITRIPTYLINE 25 MG TABLET PO SCH (21:00)
[2021-06-03] MEDS: INSULIN LISPRO 1 UNIT/0.01 ML UNIT SQ SCH ×7 (00:10→20:53)
[2021-06-03] MEDS: DEXTROSE 50% 50 ML VIAL IV PRN ×2 (00:15→08:40)
[2021-06-03] MEDS: morphine 2 MG/ML VIAL IV PRN ×3 (00:55→20:33)
[2021-06-03] MEDS: 0.9 % SODIUM CHLORIDE 10 ML SYRINGE IV SCH ×3 (05:23→20:35)
[2021-06-03 06:38] LABS: Hematocrit 37.5 % (40.1-51.0); Hemoglobin 12.7 g/dL (13.7-17.5); Mean Corpuscular HGB Conc 33.9 g/dL (31.0-36.0); Platelet Count 420 K/mcL (140-440); RBC 4.12 M/mcL (4.63-6.08); Red Cell Distribution Width 13.9 % (11.5-14.5)
[2021-06-03] MEDS: LIPASE/PROTEASE/AMYLASE 1 CAP CAPSULE PO SCH ×4 (07:04→20:35)
[2021-06-03] MEDS: NEUTRA PHOS 1 PACKET PO SCH ×2 (07:05→20:34)
[2021-06-03] MEDS: DOCUSATE SODIUM 100 MG CAPSULE PO SCH ×2 (07:05→20:34)
[2021-06-03] MEDS: PREGABALIN 100 MG CAPSULE PO SCH ×3 (07:05→20:34)
[2021-06-03] MEDS: DULoxetine 30 MG CAPSULE PO SCH (07:05)
[2021-06-03] MEDS: NYSTATIN 500,000 UNITS/5 ML ORAL.SUSP SSW SCH ×4 (07:08→20:33)
[2021-06-03] MEDS: LISINOPRIL 20 MG TABLET PO SCH (07:08)
[2021-06-03 07:11] LABS: ALT/SGPT 118 U/L (<40); AST/SGOT 319 U/L (<40); Albumin/Globulin Ratio 0.8 (1.0-2.3); Alkaline Phosphatase 685 U/L (39-117); Bilirubin,Direct 0.3 mg/dL (<0.3); Bilirubin,Total 0.6 mg/dL (0.1-1.0); Blood Urea Nitrogen 20 mg/dL (6-20); Calcium 9.7 mg/dL (8.6-10.4); Carbon Dioxide 31 mmol/L (22-30); Chloride 98 mmol/L (96-108); Glomerular Filtration Rate 85; Glucose 82 mg/dL (70-105); Lactate Dehydrogenase 549 U/L (135-225); Phosphorous 2.7 mg/dL (2.5-4.5); Triglycerides 39 mg/dL (<150); Uric Acid 5.5 mg/dL (2.5-8.0)
--- NOTE | 2021-06-03 07:41 | Internal Med Progress Note ---
SUBJECTIVE Subjective Patient information: Note initiated : 06/03/21 at 7:38 am Service Date, if different from initiated Date: [] Patient: John Walker a 55 y/o M admitted on 05/31/21 for Diabetic Ketoacidosis. Chief Complaint: [] Interval history: History of present illness: Mr. Walker is a 55 year old M Presents to the ED in [facility] for generalized weakness and shortness of breath, cough, nausea/vomiting, also complains of abdominal pain abdominal pain. States all the symptoms been going on for about a week. Patient was tested positive for Covid on May 23. Chest x-ray with increased RLL infiltrate and chronic scarring/atelecasis. currently on 3 L NC O2, unknown baseline requirement if any. Patient is cachectic and has a history of dumping syndrome with a history of gastric surgery. He was found to be in DKA with a bicarb of 5 and a pH of 7.13 on VBG. Pseudohyponatremia. Glucose 553. Also hyperkalemic at 6.7, EKG with some peaked T waves and 1 amp of bicarb ordered. Also got calcium gluconate. Lactate within normal limits Vital signs stable. 06/01 Poor sleep last night. DKA improving. On 2 L nasal cannula. 06/02 Laboratory much improved although still has a high white blood cell count. Urine unremarkable. No obvious source of infection. CT abdomen pelvis unremarkable. Will check procalcitonin. Patient currently sleeping no overnight event or new complaints. Awakens to voice but very sleepy. 06/03 Patient feeling much better today. Awake and alert. Liver enzymes jumped quite a bit and will DC remdesivir. Can also be related to possibly hypoxic episode yesterday when he aspirated. Review of Systems: denies headache/fever/chills/nausea/vomiting/chest or abdominal pain/diarrhea. Otherwise see above. Constitutional Vitals: Vital Signs Temp Pulse Resp BP Pulse Ox 97.2 F 49 L 18 152/102 91 06/03/21 04:01 06/03/21 06:01 06/03/21 07:01 06/03/21 07:01 06/03/21 06:01 Period Temp Pulse Resp BP Sys/Camara Pulse Ox Last 24 Hr 97.2 F-98.1 F 29-114 7-27 127-172/72-102 90-100 Intake and Output 06/02/21 06/03/21 06/03/21 21:59 05:59 13:59 Intake Total 1000 Output Total 818 650 Balance 182 -650 Weight 48.081 kg Intake & Output: Intake & Output 06/02/21 06/03/21 06/03/21 21:59 05:59 13:59 Intake Total 1000 Output Total 818 650 Balance 182 -650 Weight 48.081 kg Intake: IV 1000 Sodium Chloride 0.9% 1,000 ml @ 1000 75 mls/hr IV .[id number] [facility] Rx#: [id number] Output: Urine Catheter Amount 818 650 Other: Urine Appearance Clear Clear Urine Color Pale Bright Yellow Exam: General: Awake, no acute Distress, cachectic Eyes/N/T: EOMI, Head/Neck: neck supple, CV: RRR, No murmurs, Pulm: mild rhonchi, nonlabored Abd: soft, chronic abdominal tenderness, +BS x4 Ext: no clubbing/cyanosis/edema Neuro: Alert, no focal deficits, moves all extremities, Skin: warm/dry OBJ DATA Labs CBC & Chem 7: 06/03/21 05:28 06/03/21 05:27 Labs: Abnormal Lab Results 06/03/21 06/03/21 06/02/21 05:28 05:27 05:25 WBC 15.0 H RBC 4.12 L Hgb 12.7 L Hct 37.5 L MPV 11.0 H Neut % (Auto) Lymph % (Auto) Lymph # (Auto) [place] # (Auto) Seg Neutrophils % Lymphocytes % Absolute Neutrophils ABG Methemoglobin VBG pCO2 VBG pO2 VBG HCO3 VBG Total CO2 VBG O2 Saturation Carboxyhemoglobin Total Hemoglobin Sodium Potassium Chloride Carbon Dioxide 31 H Anion Gap BUN Creatinine Glucose Hemoglobin A1c Osmolality Uric Acid Phosphorus Direct Bilirubin 0.3 H GGT 320 H AST 319 H ALT 118 H Alkaline Phosphatase 685 H Lactate Dehydrogenase 549 H Albumin 3.0 L Globulin 4.0 H Albumin/Globulin Ratio 0.8 L Prealbumin Triglycerides Beta-Hydroxybutyrate Procalcitonin 0.16 H Urine Glucose (UA) Urine Ketones 06/02/21 06/02/21 06/02/21 05:25 05:25 05:25 WBC 20.4 H RBC 3.86 L Hgb 12.0 L Hct 35.8 L MPV 10.9 H Neut % (Auto) 92.0 H Lymph % (Auto) 3.7 L Lymph # (Auto) 0.75 L [place] # (Auto) Seg Neutrophils % 92 H Lymphocytes % 5 L Absolute Neutrophils 18.79 H ABG Methemoglobin VBG pCO2 VBG pO2 VBG HCO3 VBG Total CO2 VBG O2 Saturation Carboxyhemoglobin Total Hemoglobin Sodium Potassium Chloride Carbon Dioxide Anion Gap BUN Creatinine Glucose Hemoglobin A1c Osmolality Uric Acid Phosphorus Direct Bilirubin GGT AST ALT Alkaline Phosphatase 150 H Lactate Dehydrogenase 359 H Albumin 2.9 L Globulin 3.9 H Albumin/Globulin Ratio 0.7 L Prealbumin Triglycerides Beta-Hydroxybutyrate Procalcitonin Urine Glucose (UA) Urine Ketones 06/01/21 06/01/21 06/01/21 17:53 08:30 07:53 WBC 26.9 H RBC 3.82 L Hgb 12.0 L Hct 33.3 L MPV 10.7 H Neut % (Auto) Lymph % (Auto) Lymph # (Auto) [place] # (Auto) Seg Neutrophils % Lymphocytes % Absolute Neutrophils ABG Methemoglobin 0.3 L VBG pCO2 36.2 L VBG pO2 71.0 H VBG HCO3 22.5 L VBG Total CO2 23.6 L VBG O2 Saturation 89.8 H Carboxyhemoglobin 4.4 H Total Hemoglobin 11.1 L Sodium Potassium Chloride Carbon Dioxide Anion Gap BUN Creatinine Glucose Hemoglobin A1c Osmolality Uric Acid Phosphorus Direct Bilirubin GGT AST ALT Alkaline Phosphatase Lactate Dehydrogenase Albumin Globulin Albumin/Globulin Ratio Prealbumin Triglycerides Beta-Hydroxybutyrate 1.00 H Procalcitonin Urine Glucose (UA) Urine Ketones 06/01/21 05/31/21 05/31/21 07:53 21:45 21:45 WBC 27.1 H RBC 4.04 L Hgb 12.7 L Hct 37.8 L MPV 10.6 H Neut % (Auto) 88.7 H Lymph % (Auto) 4.9 L Lymph # (Auto) 1.34 L [place] # (Auto) 1.64 H Seg Neutrophils % Lymphocytes % Absolute Neutrophils 24.00 H ABG Methemoglobin VBG pCO2 VBG pO2 VBG HCO3 VBG Total CO2 VBG O2 Saturation Carboxyhemoglobin Total Hemoglobin Sodium 132 L Potassium 5.7 H Chloride 92 L Carbon Dioxide 20 L 10 L* Anion Gap 30.0 H BUN 21 H 33 H Creatinine 1.3 H 1.9 H Glucose 142 H 303 H Hemoglobin A1c Osmolality 317 H Uric Acid 9.7 H 11.8 H Phosphorus 1.4 L Direct Bilirubin GGT AST ALT Alkaline Phosphatase 141 H 158 H Lactate Dehydrogenase 321 H 318 H Albumin 3.0 L Globulin 3.8 H Albumin/Globulin Ratio 0.8 L Prealbumin 8.1 L Triglycerides 198 H Beta-Hydroxybutyrate Procalcitonin Urine Glucose (UA) Urine Ketones 05/31/21 05/31/21 20:45 17:22 WBC RBC Hgb Hct MPV Neut % (Auto) Lymph % (Auto) Lymph # (Auto) [place] # (Auto) Seg Neutrophils % Lymphocytes % Absolute Neutrophils ABG Methemoglobin VBG pCO2 VBG pO2 VBG HCO3 VBG Total CO2 VBG O2 Saturation Carboxyhemoglobin Total Hemoglobin Sodium Potassium Chloride Carbon Dioxide Anion Gap BUN Creatinine Glucose Hemoglobin A1c 11.9 H Osmolality Uric Acid Phosphorus Direct Bilirubin GGT AST ALT Alkaline Phosphatase Lactate Dehydrogenase Albumin Globulin Albumin/Globulin Ratio Prealbumin Triglycerides Beta-Hydroxybutyrate Procalcitonin Urine Glucose (UA) >=500 A Urine Ketones 80 A Meds: Medications Acetaminophen (Acetaminophen 325 Mg Tablet) 650 mg PO Q4-6HP PRN; Protocol PRN Reason: Per Pain Protocol/Fever > 101 Hydrocodone Bitart/Acetaminophen (Hydrocodone/Apap 7.5/325mg Tablet) 1 tab PO Q6HP PRN; Protocol PRN Reason: Per Pain Protocol Albuterol/Ipratropium (Ipratropium/Albuterol 3 Ml Ampul.Neb) 3 ml NEB Q4HRT PRN PRN Reason: sob Last Admin: 06/02/21 12:24 Dose: 3 ml Documented by: Amitriptyline HCl (Amitriptyline 25 Mg Tablet) 25 mg PO HS [facility] Last Admin: 06/02/21 20:16 Dose: Not Given Documented by: Lipase/Protease/Amylase (Lipase/Protease/Amylase 1 Cap Capsule) 3 cap PO CCHS [facility] Last Admin: 06/03/21 07:04 Dose: Not Given Documented by: Cyclobenzaprine HCl (Cyclobenzaprine 10 Mg Tablet) 10 mg PO TIDP PRN PRN Reason: Muscle Spasm Dexamethasone (Dexamethasone 10 Mg/Ml Vial) 6 mg IV DAILY SHAE Dextrose (Dextrose 50% 50 Ml Vial) 0 ml IV UD PRN PRN Reason: Hypoglycemia Last Admin: 06/03/21 00:15 Dose: 25 ml Documented by: Diagnostic Test (Pha) (Accu-Chek 1 Each Strip) 1 each FS Q4 [facility] Last Admin: 06/03/21 04:00 Dose: 1 each Documented by: Docusate Sodium (Docusate Sodium 100 Mg Capsule) 100 mg PO BID [facility] Last Admin: 06/03/21 07:05 Dose: Not Given Documented by: Duloxetine HCl (Duloxetine 30 Mg Capsule) 60 mg PO DAILY [facility] Last Admin: 06/03/21 07:05 Dose: Not Given Documented by: Famotidine (Famotidine/Pf 20 Mg/2 Ml Vial) 20 mg IV HS [facility] Last Admin: 06/02/21 20:21 Dose: 20 mg Documented by: Fentanyl (Fentanyl 25 Mcg Patch) 25 mcg TOPICAL Q72H [facility] Glucose (Dextrose 31 Gm Oral.Susp) 15 gm PO PRN PRN PRN Reason: Hypoglycemia Glucose Oxid/Lactoperoxid/Muramidas (Lactoperoxi/Gluc Oxid/Pot Thio 1 Each Gel..Ea.) 1 each TOPICAL PRN PRN PRN Reason: Dry Mouth Heparin Sodium (Porcine) (Heparin 5,000 Unit/Ml Vial) 5,000 unit SQ Q12 [facility] Last Admin: 06/02/21 20:20 Dose: 5,000 unit Documented by: REMDESIVIR 100 mg/ Sodium (Chloride) 250 mls @ 500 mls/hr IV DAILY [facility] Stop: 06/05/21 09:29 Insulin Glargine (Insulin Glargine, Human 1 Unit/0.01 Ml) 20 unit SQ DAILY [facility] Insulin Human Lispro (Insulin Lispro 1 Unit/0.01 Ml Unit) 0 unit SQ Q4 [facility]; Protocol Last Admin: 06/03/21 04:00 Dose: Not Given Documented by: Labetalol HCl (Labetalol 5 Mg/Ml Ml) 0 mg IV Q2HP PRN PRN Reason: Hypertension Lisinopril (Lisinopril 20 Mg Tablet) 20 mg PO DAILY [facility] Last Admin: 06/03/21 07:08 Dose: Not Given Documented by: Metoclopramide HCl (Metoclopramide 10 Mg/2 Ml Vial) 10 mg IV Q6 PRN PRN Reason: nausea] Morphine Sulfate (Morphine 2 Mg/Ml Vial) 1 - 4 mg IV Q3HP PRN; Protocol PRN Reason: Per Pain Protocol Last Admin: 06/03/21 00:55 Dose: 4 mg Documented by: Nystatin (Nystatin 500,000 Units/5 Ml Oral.Susp) 500,000 units SSW QID [facility] Last Admin: 06/03/21 07:08 Dose: Not Given Documented by: Ondansetron HCl (Ondansetron 4 Mg/2 Ml Vial) 4 mg IV Q4-6HP PRN PRN Reason: Nausea And Vomiting Potassium/Phosphorus/Sodium (Neutra Phos 1 Packet) 2 packet PO BID [facility] Last Admin: 06/03/21 07:05 Dose: Not Given Documented by: Pregabalin (Pregabalin 100 Mg Capsule) 100 mg PO TID [facility] Last Admin: 06/03/21 07:05 Dose: Not Given Documented by: Promethazine HCl (Promethazine 25 Mg Tablet) 25 mg PO Q4-6HP PRN PRN Reason: Nausea Sodium Chloride (0.9 % Sodium Chloride 10 Ml Syringe) 10 ml IV Q8 [facility] Last Admin: 06/03/21 05:23 Dose: 10 ml Documented by: ABG Interpretation ABG results: 06/01/21 08:30 ABG Methemoglobin 0.3 L VBG pH 7.41 VBG pCO2 36.2 L VBG pO2 71.0 H VBG HCO3 22.5 L VBG Total CO2 23.6 L VBG O2 Saturation 89.8 H VBG Base Excess -2 A/P Narrative A/P Narrative: A: *DKA-HHS: resolved -A1c 11.9 *Hyperkalemia: 6.7 at outside facility. resolved *Covid pneumonia: -leukocytosis improving, no bandemia *Aspiration yesterday: *Acute hypoxic respiratory failure: -on 5l oxymask, was on 10L yesterday after aspiration event *COPD (not on home O2) & chronic scarring on imaging per past notes: *CELESTE on likely CKD II: Cr 2.6 at outside facility -resolved *Malnutrition with h/o short bowel syndrome -prealbumin 8 *Tobacco abuse: *HTN: on lisinopril *GERD: *Chr pain/chr abdominal pain: *Chronic pancreatitis: *Transaminitis: 2/2 remdesivir vs hypoxic event vs error (recheck) P: -cont basal (decrease while NPO) and SSI -Rem(stopped for transaminitis)/Dex -will start empiric abx given poor baseline status and elevated WBC ans aspiration -IS/Acapella, prn nebs -Proning/mobilization/oob to chair -NPO, pending ST ev today -dietary consult -PT/OT -Smoking cessation counseling -ppx: heparin / home ppi Time Spent With Patient Time: Total time spent is greater than 50% in coordination of care (as documented) at patient's floor/unit and/or counseling patient: QUALITY VTE Deep Vein Thrombosis/Pulmonary Embolism Present on Admission: No
[2021-06-03 07:59] LABS: Band Neutrophils % 4 % (0-10); Lymphocytes % 5 % (15-49); Monocytes % (Manual) 2 % (1-12); Platelet Estimate NORMAL (Normal); RBC Morphology NORMAL (Normal); Reactive Lymphocytes 1 % (0-2); Segmented Neutrophils % 88 % (38-78)
[2021-06-03] MEDS: cefTRIAXone 2 GM in DEXTROSE 5% IN WATER 50 ML IV SCH (08:00)
[2021-06-03 08:18] LABS: Bilirubin,Direct 0.3 mg/dL (<0.3); Bilirubin,Total 0.6 mg/dL (0.1-1.0)
[2021-06-03] MEDS ORDERED: ENALAPRILAT 1.25 MG/ML VIAL IV PRN (08:53)
[2021-06-03] MEDS: AZITHROMYCIN 500 MG in DEXTROSE 5% IN WATER 250 ML IV SCH (08:59)
[2021-06-03] MEDS ORDERED: INSULIN GLARGINE, HUMAN 1 UNIT/0.01 ML SQ SCH (09:00)
[2021-06-03] MEDS ORDERED: LISINOPRIL 20 MG TABLET PO SCH (09:00)
[2021-06-03] MEDS ORDERED: REMDESIVIR 100 MG in 0.9 % SODIUM CHLORIDE 250 ML IV SCH (09:00)
[2021-06-03] MEDS: INSULIN GLARGINE, HUMAN 1 UNIT/0.01 ML SQ SCH (09:06)
[2021-06-03] MEDS: DEXAMETHASONE 10 MG/ML VIAL IV SCH (09:10)
[2021-06-03] MEDS: HEPARIN 5,000 UNIT/ML VIAL SQ SCH ×2 (09:10→20:33)
[2021-06-03 09:44] LABS: Albumin 3.1 gm/dL (3.2-5.2); Bilirubin,Direct 0.2 mg/dL (<0.3); Bilirubin,Total 0.6 mg/dL (0.1-1.0); Globulin 4.4 gm/dL (2.2-3.7)
[2021-06-03] MEDS: FAMOTIDINE/PF 20 MG/2 ML VIAL IV SCH (20:33)
[2021-06-03] MEDS: AMITRIPTYLINE 25 MG TABLET PO SCH (20:34)
[2021-06-04] MEDS: DEXTROSE 50% 50 ML VIAL IV PRN ×2 (00:15→05:25)
[2021-06-04] MEDS: LABETALOL 5 MG/ML ML IV PRN ×2 (03:04→11:48)
[2021-06-04] MEDS: 0.9 % SODIUM CHLORIDE 10 ML SYRINGE IV SCH ×3 (05:33→21:09)
[2021-06-04 06:39] LABS: Basophils # (Auto) 0.01 K/mcL (0.00-0.30); Basophils % (Auto) 0.1 % (0.0-2.0); Eosinophils # (Auto) 0 K/mcL (0.00-0.70); Eosinophils % (Auto) 0 % (0.0-7.0); Hemoglobin 11.7 g/dL (13.7-17.5); Lymphocytes % (Auto) 11.8 % (15.5-49.0); Mean Cell Volume 92.4 fL (80.0-100.0); Mean Corpuscular HGB Conc 34.4 g/dL (31.0-36.0); Mean Platelet Volume 11.5 fL (7.4-10.4); Monocytes # (Auto) 0.53 K/mcL (0.10-0.90); Monocytes % (Auto) 3.5 % (1.0-12.0); Neutrophils % (Auto) 84.6 % (38.0-78.0); Platelet Count 431 K/mcL (140-440); RBC 3.68 M/mcL (4.63-6.08); Red Cell Distribution Width 14.2 % (11.5-14.5); WBC 15.2 K/mcL (4.5-11.0)
[2021-06-04 07:08] LABS: ALT/SGPT 64 U/L (<40); AST/SGOT 60 U/L (<40); Albumin 2.8 gm/dL (3.2-5.2); Albumin/Globulin Ratio 0.8 (1.0-2.3); Alkaline Phosphatase 463 U/L (39-117); Bilirubin,Direct < 0.2 mg/dL (0-0.3); Bilirubin,Total 0.3 mg/dL (0.1-1.0); Blood Urea Nitrogen 21 mg/dL (6-20); Calcium 9.4 mg/dL (8.6-10.4); Carbon Dioxide 32 mmol/L (22-30); Chloride 98 mmol/L (96-108); Globulin 3.7 gm/dL (2.2-3.7); Glomerular Filtration Rate 101; Glucose 52 mg/dL (70-105); Lactate Dehydrogenase 298 U/L (135-225); Phosphorous 2.8 mg/dL (2.5-4.5); Triglycerides 50 mg/dL (<150); Uric Acid 4.7 mg/dL (2.5-8.0)
[2021-06-04] MEDS: cefTRIAXone 2 GM in DEXTROSE 5% IN WATER 50 ML IV SCH (07:38)
[2021-06-04] MEDS: LIPASE/PROTEASE/AMYLASE 1 CAP CAPSULE PO SCH ×4 (07:40→21:08)
[2021-06-04] MEDS ORDERED: DEXTROSE 31 GM ORAL.SUSP PO PRN (09:26)
[2021-06-04] MEDS ORDERED: DEXTROSE 50% 50 ML VIAL IV PRN (09:26)
--- NOTE | 2021-06-04 09:35 | Internal Med Progress Note ---
SUBJECTIVE Subjective Patient information: Note initiated : 06/04/21 at 9:28 am Service Date, if different from initiated Date: [] Patient: John Walker a 55 y/o M admitted on 05/31/21 for Diabetic Ketoacidosis. Chief Complaint: [DKA, CoVID pneumonia] Interval history: History of present illness: Mr. Walker is a 55 year old M Presents to the ED in [facility] for generalized weakness and shortness of breath, cough, nausea/vomiting, also complains of abdominal pain abdominal pain. States all the symptoms been going on for about a week. Patient was tested positive for Covid on May 23. Chest x-ray with increased RLL infiltrate and chronic scarring/atelecasis. currently on 3 L NC O2, unknown baseline requirement if any. Patient is cachectic and has a history of dumping syndrome with a history of gastric surgery. He was found to be in DKA with a bicarb of 5 and a pH of 7.13 on VBG. Pseudohyponatremia. Glucose 553. Also hyperkalemic at 6.7, EKG with some peaked T waves and 1 amp of bicarb ordered. Also got calcium gluconate. Lactate within normal limits Vital signs stable. 06/01 Poor sleep last night. DKA improving. On 2 L nasal cannula. 06/02 Laboratory much improved although still has a high white blood cell count. Urine unremarkable. No obvious source of infection. CT abdomen pelvis unremarkable. Will check procalcitonin. Patient currently sleeping no overnight event or new complaints. Awakens to voice but very sleepy. 06/03 Patient feeling much better today. Awake and alert. Liver enzymes jumped quite a bit and will DC remdesivir. Can also be related to possibly hypoxic episode yesterday when he aspirated. 06/04: Been afebrile overnight. Currently on 6L/min oxygen. Episodes of hypoglycemia overnight. Poor appetite, on Pureed moderately thick diet while awaiting SLT evaluation. c/o moderate to severe RLQ abdominal pain. c/o mild-moderate SOB. Denies cough. Denies wheezing. Denies fever chills or sweating. Denies nausea vomiting diarrhea, or constipation. Constitutional Vitals: Vital Signs Temp Pulse Resp BP Pulse Ox 36.4 C 49 L 13 151/89 96 06/04/21 09:01 06/03/21 06:01 06/04/21 09:01 06/04/21 09:01 06/04/21 09:01 Period Temp Pulse Resp BP Sys/Camara Pulse Ox Last 24 Hr 36.3 C-36.9 C 7-19 76-173/48-111 84-100 Intake and Output 06/03/21 06/04/21 06/04/21 21:59 05:59 13:59 Intake Total 120 Output Total 200 550 Balance -80 -550 Weight 46.72 kg Intake & Output: Intake & Output 06/03/21 06/04/21 06/04/21 21:59 05:59 13:59 Intake Total 120 Output Total 200 550 Balance -80 -550 Weight 46.72 kg Intake: Oral 120 Output: Urine Catheter Amount 200 550 Other: Urine Appearance Clear Clear Urine Color Light Yu Dark Yellow Urine Odor Normal General appearance: cooperative, disheveled and no acute distress Head Head exam: Present atraumatic and normocephalic Eye Eye exam: Present EOMI and PERRL ENT ENT exam: Present mucous membranes moist, normal exam and normal external ear exam Additional comments: oxygen mask in place Neck Neck exam: Present normal inspection; Absent lymphadenopathy, tenderness and thyromegaly Respiratory Respiratory exam: Present rhonchi; Absent accessory muscle use, respiratory distress and wheezes Cardiovascular Cardiovascular exam: Present normal rate and rhythm; Absent JVD GI/Abdominal GI/Abdominal exam: Present normal bowel sounds, soft and tenderness; Absent organomegaly Additional comments: RLQ tenderness without guarding or rebound tenderness Rectal Rectal exam: Present deferred Extremities Exam Extremities exam: Present full ROM, normal capillary refill and normal inspection; Absent tenderness Neurological Exam Neurological exam: Present alert, CN II-XII intact and oriented X3; Absent motor sensory deficit Psychiatric Psychiatric exam: Present normal affect and normal mood; Absent anxious and depr essed Skin Skin exam: Present dry and intact OBJ DATA Labs CBC & Chem 7: 06/04/21 05:14 06/04/21 05:14 Labs: Abnormal Lab Results 06/04/21 06/04/21 06/04/21 05:14 05:14 05:13 WBC 15.2 H RBC 3.68 L Hgb 11.7 L Hct 34.0 L MPV 11.5 H Neut % (Auto) 84.6 H Lymph % (Auto) 11.8 L Lymph # (Auto) Seg Neutrophils % Lymphocytes % Absolute Neutrophils 12.87 H Carbon Dioxide 32 H BUN 21 H Glucose 52 L Direct Bilirubin GGT 232 H AST 60 H ALT 64 H Alkaline Phosphatase 463 H Lactate Dehydrogenase 298 H C-Reactive Protein 14.20 H Albumin 2.8 L Globulin Albumin/Globulin Ratio 0.8 L Procalcitonin 06/03/21 06/03/21 06/03/21 08:49 08:48 08:48 WBC RBC Hgb Hct MPV Neut % (Auto) Lymph % (Auto) Lymph # (Auto) Seg Neutrophils % Lymphocytes % Absolute Neutrophils Carbon Dioxide BUN Glucose Direct Bilirubin GGT AST 236 H ALT 116 H Alkaline Phosphatase 718 H Lactate Dehydrogenase C-Reactive Protein 22.00 H Albumin 3.1 L Globulin 4.4 H Albumin/Globulin Ratio Procalcitonin 0.29 H 06/03/21 06/03/21 06/03/21 05:28 05:27 05:27 WBC 15.0 H RBC 4.12 L Hgb 12.7 L Hct 37.5 L MPV 11.0 H Neut % (Auto) Lymph % (Auto) Lymph # (Auto) Seg Neutrophils % 88 H Lymphocytes % 5 L Absolute Neutrophils Carbon Dioxide BUN Glucose Direct Bilirubin 0.3 H GGT AST 304 H ALT 117 H Alkaline Phosphatase 685 H Lactate Dehydrogenase C-Reactive Protein Albumin 3.0 L Globulin 4.0 H Albumin/Globulin Ratio Procalcitonin 0.22 H 06/03/21 06/03/21 06/02/21 05:27 05:27 05:25 WBC RBC Hgb Hct MPV Neut % (Auto) Lymph % (Auto) Lymph # (Auto) Seg Neutrophils % Lymphocytes % Absolute Neutrophils Carbon Dioxide 31 H BUN Glucose Direct Bilirubin 0.3 H GGT 320 H AST 319 H ALT 118 H Alkaline Phosphatase 685 H Lactate Dehydrogenase 549 H C-Reactive Protein 20.00 H Albumin 3.0 L Globulin 4.0 H Albumin/Globulin Ratio 0.8 L Procalcitonin 0.16 H 06/02/21 06/02/21 06/02/21 05:25 05:25 05:25 WBC 20.4 H RBC 3.86 L Hgb 12.0 L Hct 35.8 L MPV 10.9 H Neut % (Auto) 92.0 H Lymph % (Auto) 3.7 L Lymph # (Auto) 0.75 L Seg Neutrophils % 92 H Lymphocytes % 5 L Absolute Neutrophils 18.79 H Carbon Dioxide BUN Glucose Direct Bilirubin GGT AST ALT Alkaline Phosphatase 150 H Lactate Dehydrogenase 359 H C-Reactive Protein Albumin 2.9 L Globulin 3.9 H Albumin/Globulin Ratio 0.7 L Procalcitonin 06/01/21 07:53 WBC 26.9 H RBC 3.82 L Hgb 12.0 L Hct 33.3 L MPV 10.7 H Neut % (Auto) Lymph % (Auto) Lymph # (Auto) Seg Neutrophils % Lymphocytes % Absolute Neutrophils Carbon Dioxide BUN Glucose Direct Bilirubin GGT AST ALT Alkaline Phosphatase Lactate Dehydrogenase C-Reactive Protein Albumin Globulin Albumin/Globulin Ratio Procalcitonin Meds: Medications Acetaminophen (Acetaminophen 325 Mg Tablet) 650 mg PO Q4-6HP PRN; Protocol PRN Reason: Per Pain Protocol/Fever > 101 Hydrocodone Bitart/Acetaminophen (Hydrocodone/Apap 7.5/325mg Tablet) 1 tab PO Q6HP PRN; Protocol PRN Reason: Per Pain Protocol Albuterol/Ipratropium (Ipratropium/Albuterol 3 Ml Ampul.Neb) 3 ml NEB Q4HRT PRN PRN Reason: sob Last Admin: 06/02/21 12:24 Dose: 3 ml Documented by: Amitriptyline HCl (Amitriptyline 25 Mg Tablet) 25 mg PO HS [facility] Last Admin: 06/03/21 20:34 Dose: 25 mg Documented by: Lipase/Protease/Amylase (Lipase/Protease/Amylase 1 Cap Capsule) 3 cap PO [facility] Last Admin: 06/04/21 07:40 Dose: 3 cap Documented by: Cyclobenzaprine HCl (Cyclobenzaprine 10 Mg Tablet) 10 mg PO TIDP PRN PRN Reason: Muscle Spasm Dexamethasone (Dexamethasone 10 Mg/Ml Vial) 6 mg IV DAILY [facility] Last Admin: 06/03/21 09:10 Dose: 6 mg Documented by: Dextrose (Dextrose 50% 50 Ml Vial) 0 ml IV UD PRN PRN Reason: Hypoglycemia Last Admin: 06/04/21 05:25 Dose: 50 ml Documented by: Dextrose (Dextrose 50% 50 Ml Vial) 0 ml IV UD PRN PRN Reason: Hypoglycemia Diagnostic Test (Pha) (Accu-Chek 1 Each Strip) 1 each FS ACHS [facility] Last Admin: 06/04/21 07:40 Dose: 1 each Documented by: Diagnostic Test (Pha) (Accu-Chek 1 Each Strip) 1 each FS ACHS [facility] Docusate Sodium (Docusate Sodium 100 Mg Capsule) 100 mg PO BID [facility] Last Admin: 06/03/21 20:34 Dose: 100 mg Documented by: Duloxetine HCl (Duloxetine 30 Mg Capsule) 60 mg PO DAILY [facility] Last Admin: 06/03/21 07:05 Dose: Not Given Documented by: Enalaprilat (Enalaprilat 1.25 Mg/Ml Vial) 0 mg IV Q2HP PRN PRN Reason: Hypertension Famotidine (Famotidine/Pf 20 Mg/2 Ml Vial) 20 mg IV HS [facility] Last Admin: 06/03/21 20:33 Dose: 20 mg Documented by: Fentanyl (Fentanyl 25 Mcg Patch) 25 mcg TOPICAL Q72H [facility] Glucose (Dextrose 31 Gm Oral.Susp) 15 gm PO PRN PRN PRN Reason: Hypoglycemia Glucose (Dextrose 31 Gm Oral.Susp) 15 gm PO PRN PRN PRN Reason: Hypoglycemia Glucose Oxid/Lactoperoxid/Muramidas (Lactoperoxi/Gluc Oxid/Pot Thio 1 Each Gel..Ea.) 1 each TOPICAL PRN PRN PRN Reason: Dry Mouth Heparin Sodium (Porcine) (Heparin 5,000 Unit/Ml Vial) 5,000 unit SQ Q12 [facility] Last Admin: 06/03/21 20:33 Dose: 5,000 unit Documented by: Ceftriaxone Sodium 2 gm/ (Dextrose) 50 mls @ 100 mls/hr IV DAILY@0800 [facility]; Protocol Last Admin: 06/04/21 07:38 Dose: 100 mls/hr Documented by: Azithromycin 500 mg/ Dextrose 250 mls @ 250 mls/hr IV DAILY [facility]; Protocol Stop: 06/05/21 09:59 Last Infusion: 06/03/21 10:00 Dose: Infused Documented by: Insulin Glargine (Insulin Glargine, Human 1 Unit/0.01 Ml) 5 unit SQ [facility] Insulin Human Lispro (Insulin Lispro 1 Unit/0.01 Ml Unit) 0 unit SQ [facility]; Protocol Labetalol HCl (Labetalol 5 Mg/Ml Ml) 0 mg IV Q2HP PRN PRN Reason: Hypertension Last Admin: 06/04/21 03:04 Dose: 20 mg Documented by: Lisinopril (Lisinopril 20 Mg Tablet) 20 mg PO DAILY [facility] Last Admin: 06/03/21 07:08 Dose: Not Given Documented by: Metoclopramide HCl (Metoclopramide 10 Mg/2 Ml Vial) 10 mg IV Q6 PRN PRN Reason: nausea] Morphine Sulfate (Morphine 2 Mg/Ml Vial) 1 - 4 mg IV Q3HP PRN; Protocol PRN Reason: Per Pain Protocol Last Admin: 06/03/21 20:33 Dose: 4 mg Documented by: Nystatin (Nystatin 500,000 Units/5 Ml Oral.Susp) 500,000 units SSW QID [facility] Last Admin: 06/03/21 20:33 Dose: 500,000 units Documented by: Ondansetron HCl (Ondansetron 4 Mg/2 Ml Vial) 4 mg IV Q4-6HP PRN PRN Reason: Nausea And Vomiting Potassium/Phosphorus/Sodium (Neutra Phos 1 Packet) 2 packet PO BID [facility] Last Admin: 06/03/21 20:34 Dose: 2 packet Documented by: Pregabalin (Pregabalin 100 Mg Capsule) 100 mg PO TID [facility] Last Admin: 06/03/21 20:34 Dose: 100 mg Documented by: Promethazine HCl (Promethazine 25 Mg Tablet) 25 mg PO Q4-6HP PRN PRN Reason: Nausea Sodium Chloride (0.9 % Sodium Chloride 10 Ml Syringe) 10 ml IV Q8 [facility] Last Admin: 06/04/21 05:33 Dose: 10 ml Documented by: ABG Interpretation ABG results: 06/01/21 08:30 ABG Methemoglobin 0.3 L VBG pH 7.41 VBG pCO2 36.2 L VBG pO2 71.0 H VBG HCO3 22.5 L VBG Total CO2 23.6 L VBG O2 Saturation 89.8 H VBG Base Excess -2 A/P Assessment and plan (1) DKA, type 2: Status: Acute (2) Short bowel syndrome: Status: Acute (3) Pneumonia due to COVID-19 virus: Status: Acute (4) Malnutrition: Status: Acute (5) GERD (gastroesophageal reflux disease): Status: Acute (6) Aspiration pneumonia: Status: Acute (7) Dysphagia: Status: Acute (8) Anemia, normocytic normochromic: Status: Acute Narrative A/P Narrative: Assessment and Plans: 1. DKA: Resolved, now with overnight hypoglycemia episodes HgA1c 11.9 Insulin Lantus 5 unit change from daily to HS Medium to low dose SSI AC HS Pureed with moderate thick diet, carb consistent Accu Chek AC HS Hypoglycemia protocol 2. Dysphagia with short bowel syndrome: Pending SLT evaluation Megace Pureed with moderate thick diet, carb consistent Insure supplement 3. Abdominal pain, acute: KUB negative Continue stool softener [place] PRN moderate pain If symptoms persists, will consider CT abdomen w/o 4. GERD: Continue PEPCID 5. Anemia, normocytic normochromic: cbc w/ auto diff in the AM to trend H/H; transfuse pRBC if hemoglobin <7.0, active bleeding, or symptomatic 6. CoVID pneumonia: Supplemental oxygen titrate to achieve spo2>=92% Dexamethasone Lovenox Hold Remdesivir due to elevated LFTs Isolation protocol: airborne and contact 7. Aspiration pneumonia associated with dysphagia: Supplemental oxygen titrate to achieve spo2>=92% Rocephin Zithromax 8. Essential HTN: Continue Lisinopril Hydralazine 10mg IV q4hr PRN SBP>=180mmHg and/or DBP>=110mmHg GI ppx: PEPCID DVT ppx: Lovenox Code status: Full Prognosis: Guarded Disposition: Inpatient PCU Time Spent With Patient Time: Total time spent is greater than 50% in coordination of care (as documented) at patient's floor/unit and/or counseling patient: Total time spent with greater than 50% in coordination of care (as documented) at patient's floor/unit and/or counseling patient:: Greater than 35 minutes QUALITY VTE Deep Vein Thrombosis/Pulmonary Embolism Present on Admission: No
[2021-06-04] MEDS: INSULIN LISPRO 1 UNIT/0.01 ML UNIT SQ SCH ×4 (09:41→21:05)
[2021-06-04] MEDS: INSULIN GLARGINE, HUMAN 1 UNIT/0.01 ML SQ SCH ×2 (09:41→21:04)
--- NOTE | 2021-06-04 09:54 | XRay Report ---
INDICATION: RLQ abdominal pain, acute TECHNIQUE: Supine abdomen. COMPARISON: Previous CT scan dated 06/01/2021 FINDINGS:There is some residual contrast material within the colon. Colon is otherwise normal. No dilatation. There is fecal material but no evidence for significant constipation. No dilated gas-filled small bowel. No mechanical small bowel obstruction. There is no pneumatosis. No biliary or portal venous gas. IMPRESSION: No mechanical small bowel obstruction. No focal abnormality Interpreted and Authenticated by: Ke Geronimo 06/04/21
[2021-06-04] MEDS ORDERED: hydrALAZINE 20 MG/ML VIAL IV PRN (10:17)
[2021-06-04] MEDS: fentaNYL 25 MCG PATCH TOPICAL SCH (10:18)
[2021-06-04] MEDS: HYDROCODONE/APAP 7.5/325MG TABLET PO PRN ×2 (10:19→22:35)
[2021-06-04] MEDS: NEUTRA PHOS 1 PACKET PO SCH ×2 (10:19→21:06)
[2021-06-04] MEDS: LISINOPRIL 20 MG TABLET PO SCH (10:19)
[2021-06-04] MEDS: DEXAMETHASONE 10 MG/ML VIAL IV SCH (10:20)
[2021-06-04] MEDS: NYSTATIN 500,000 UNITS/5 ML ORAL.SUSP SSW SCH ×5 (10:20→20:41)
[2021-06-04] MEDS: PREGABALIN 100 MG CAPSULE PO SCH ×3 (10:20→21:06)
[2021-06-04] MEDS: DULoxetine 30 MG CAPSULE PO SCH (10:20)
[2021-06-04] MEDS: DOCUSATE SODIUM 100 MG CAPSULE PO SCH ×2 (10:20→21:09)
[2021-06-04] MEDS: HEPARIN 5,000 UNIT/ML VIAL SQ SCH ×2 (10:21→10:25)
[2021-06-04] MEDS: AZITHROMYCIN 500 MG in DEXTROSE 5% IN WATER 250 ML IV SCH (10:22)
[2021-06-04] MEDS: 0.9 % SODIUM CHLORIDE 1,000 ML IV SCH ×3 (10:22→21:10)
[2021-06-04] MEDS: AMITRIPTYLINE 25 MG TABLET PO SCH (21:06)
[2021-06-04] MEDS: FAMOTIDINE/PF 20 MG/2 ML VIAL IV SCH (21:06)
[2021-06-05] MEDS: LABETALOL 5 MG/ML ML IV PRN ×2 (03:17→07:33)
[2021-06-05] MEDS: 0.9 % SODIUM CHLORIDE 10 ML SYRINGE IV SCH ×3 (05:04→21:14)
[2021-06-05] MEDS: DEXTROSE 50% 50 ML VIAL IV PRN (07:12)
[2021-06-05] MEDS: 0.9 % SODIUM CHLORIDE 1,000 ML IV SCH ×3 (07:48→18:44)
--- NOTE | 2021-06-05 08:52 | Internal Med Progress Note ---
SUBJECTIVE Subjective Patient information: Note initiated : 06/05/21 at 8:46 am Service Date, if different from initiated Date: [] Patient: John Walker a 55 y/o M admitted on 05/31/21 for Diabetic Ketoacidosis. Chief Complaint: [CoVID pneumonia, DKA] Interval history: History of present illness: Mr. Walker is a 55 year old M Presents to the ED in [facility] for generalized weakness and shortness of breath, cough, nausea/vomiting, also complains of abdominal pain abdominal pain. States all the symptoms been going on for about a week. Patient was tested positive for Covid on May 23. Chest x-ray with increased RLL infiltrate and chronic scarring/atelecasis. currently on 3 L NC O2, unknown baseline requirement if any. Patient is cachectic and has a history of dumping syndrome with a history of gastric surgery. He was found to be in DKA with a bicarb of 5 and a pH of 7.13 on VBG. Pseudohyponatremia. Glucose 553. Also hyperkalemic at 6.7, EKG with some peaked T waves and 1 amp of bicarb ordered. Also got calcium gluconate. Lactate within normal limits Vital signs stable. 06/01 Poor sleep last night. DKA improving. On 2 L nasal cannula. 06/02 Laboratory much improved although still has a high white blood cell count. Urine unremarkable. No obvious source of infection. CT abdomen pelvis unremarkable. Will check procalcitonin. Patient currently sleeping no overnight event or new complaints. Awakens to voice but very sleepy. 06/03 Patient feeling much better today. Awake and alert. Liver enzymes jumped quite a bit and will DC remdesivir. Can also be related to possibly hypoxic episode yesterday when he aspirated. 06/04: Been afebrile overnight. Currently on 6L/min oxygen. Episodes of hypoglycemia overnight. Poor appetite, on Pureed moderately thick diet while awaiting SLT evaluation. c/o moderate to severe RLQ abdominal pain. c/o mild-moderate SOB. Denies cough. Denies wheezing. Denies fever chills or sweating. Denies nausea vomiting diarrhea, or constipation. 06/05: Fasting glucose level 68. Poor appetite. Oxygen requirement 8L/min overnight, currently at 6L/min. Poor appetite. c/o mild SOB. c/o productive cough. Denies fever chills or sweating. Denies nausea or vomiting. c/o LLQ abdominal pain. Constitutional Vitals: Vital Signs Temp Pulse Resp BP Pulse Ox 36.7 C 49 L 19 186/93 100 06/04/21 23:01 06/03/21 06:01 06/05/21 06:07 06/05/21 06:01 06/05/21 06:07 Period Temp Pulse Resp BP Sys/Camara Pulse Ox Last 24 Hr 36.4 C-36.8 C 05-16 124-186/72-110 91-100 Intake and Output 06/04/21 06/05/21 06/05/21 21:59 05:59 13:59 Intake Total 8052 402 7621 Output Total 150 600 Balance 950 -100 1000 Weight 48.534 kg Intake & Output: Intake & Output 06/04/21 06/05/21 06/05/21 21:59 05:59 13:59 Intake Total 1736 735 7894 Output Total 150 600 Balance 950 -100 1000 Weight 48.534 kg Intake: IV 1000 1000 Sodium Chloride 0.9% 1,000 ml @ 1000 1000 100 mls/hr IV .Q10H [facility] Rx#: [id number] Oral 100 500 Output: Urine Catheter Amount 150 600 Other: Meal Dinner Percent of Meal Consumed 10% Urine Appearance Clear Clear Urine Color Dark Yellow Dark Yellow Urine Odor Normal General appearance: cooperative, disheveled and no acute distress Exam: cachetic Head Head exam: Present atraumatic and normocephalic Eye Eye exam: Present EOMI and PERRL ENT ENT exam: Present mucous membranes moist, normal exam and normal external ear ex am Additional comments: oxygen mask in place Neck Neck exam: Present normal inspection; Absent lymphadenopathy, tenderness and thyromegaly Respiratory Respiratory exam: Present rhonchi; Absent accessory muscle use, respiratory distress and wheezes Cardiovascular Cardiovascular exam: Present normal rate and rhythm; Absent JVD GI/Abdominal GI/Abdominal exam: Present normal bowel sounds, soft and tenderness; Absent organomegaly Rectal Rectal exam: Present deferred Extremities Exam Extremities exam: Present full ROM, normal capillary refill and normal inspection; Absent tenderness Neurological Exam Neurological exam: Present alert, CN II-XII intact and oriented X3; Absent motor sensory deficit Psychiatric Psychiatric exam: Present normal affect and normal mood; Absent anxious and depressed Skin Skin exam: Present dry and intact OBJ DATA Labs CBC & Chem 7: 06/04/21 05:14 06/04/21 05:14 Labs: Abnormal Lab Results 06/04/21 06/04/21 06/04/21 05:14 05:14 05:13 WBC 15.2 H RBC 3.68 L Hgb 11.7 L Hct 34.0 L MPV 11.5 H Neut % (Auto) 84.6 H Lymph % (Auto) 11.8 L Seg Neutrophils % Lymphocytes % Absolute Neutrophils 12.87 H Carbon Dioxide 32 H BUN 21 H Glucose 52 L Direct Bilirubin GGT 232 H AST 60 H ALT 64 H Alkaline Phosphatase 463 H Lactate Dehydrogenase 298 H C-Reactive Protein 14.20 H Albumin 2.8 L Globulin Albumin/Globulin Ratio 0.8 L Procalcitonin 06/03/21 06/03/21 06/03/21 08:49 08:48 08:48 WBC RBC Hgb Hct MPV Neut % (Auto) Lymph % (Auto) Seg Neutrophils % Lymphocytes % Absolute Neutrophils Carbon Dioxide BUN Glucose Direct Bilirubin GGT AST 236 H ALT 116 H Alkaline Phosphatase 718 H Lactate Dehydrogenase C-Reactive Protein 22.00 H Albumin 3.1 L Globulin 4.4 H Albumin/Globulin Ratio Procalcitonin 0.29 H 06/03/21 06/03/21 06/03/21 05:28 05:27 05:27 WBC 15.0 H RBC 4.12 L Hgb 12.7 L Hct 37.5 L MPV 11.0 H Neut % (Auto) Lymph % (Auto) Seg Neutrophils % 88 H Lymphocytes % 5 L Absolute Neutrophils Carbon Dioxide BUN Glucose Direct Bilirubin 0.3 H GGT AST 304 H ALT 117 H Alkaline Phosphatase 685 H Lactate Dehydrogenase C-Reactive Protein Albumin 3.0 L Globulin 4.0 H Albumin/Globulin Ratio Procalcitonin 0.22 H 06/03/21 06/03/21 05:27 05:27 WBC RBC Hgb Hct MPV Neut % (Auto) Lymph % (Auto) Seg Neutrophils % Lymphocytes % Absolute Neutrophils Carbon Dioxide 31 H BUN Glucose Direct Bilirubin 0.3 H GGT 320 H AST 319 H ALT 118 H Alkaline Phosphatase 685 H Lactate Dehydrogenase 549 H C-Reactive Protein 20.00 H Albumin 3.0 L Globulin 4.0 H Albumin/Globulin Ratio 0.8 L Procalcitonin Meds: Medications Acetaminophen (Acetaminophen 325 Mg Tablet) 650 mg PO Q4-6HP PRN; Protocol PRN Reason: Per Pain Protocol/Fever > 101 Hydrocodone Bitart/Acetaminophen (Hydrocodone/Apap 7.5/325mg Tablet) 1 tab PO Q6HP PRN; Protocol PRN Reason: Per Pain Protocol Last Admin: 06/04/21 22:35 Dose: 1 tab Documented by: Albuterol/Ipratropium (Ipratropium/Albuterol 3 Ml Ampul.Neb) 3 ml NEB Q4HRT PRN PRN Reason: sob Last Admin: 06/02/21 12:24 Dose: 3 ml Documented by: Amitriptyline HCl (Amitriptyline 25 Mg Tablet) 25 mg PO HS [facility] Last Admin: 06/04/21 21:06 Dose: 25 mg Documented by: Lipase/Protease/Amylase (Lipase/Protease/Amylase 1 Cap Capsule) 3 cap PO CCHS [facility] Last Admin: 06/04/21 21:08 Dose: 3 cap Documented by: Cyclobenzaprine HCl (Cyclobenzaprine 10 Mg Tablet) 10 mg PO TIDP PRN PRN Reason: Muscle Spasm Dexamethasone (Dexamethasone 10 Mg/Ml Vial) 6 mg IV DAILY [facility] Last Admin: 06/04/21 10:20 Dose: 6 mg Documented by: Dextrose (Dextrose 50% 50 Ml Vial) 0 ml IV UD PRN PRN Reason: Hypoglycemia Last Admin: 06/05/21 07:12 Dose: 25 ml Documented by: Dextrose (Dextrose 50% 50 Ml Vial) 0 ml IV UD PRN PRN Reason: Hypoglycemia Diagnostic Test (Pha) (Accu-Chek 1 Each Strip) 1 each FS ACHS [facility] Last Admin: 06/05/21 07:46 Dose: 1 each Documented by: Diagnostic Test (Pha) (Accu-Chek 1 Each Strip) 1 each FS ACHS [facility] Last Admin: 06/05/21 06:48 Dose: Not Given Documented by: Docusate Sodium (Docusate Sodium 100 Mg Capsule) 100 mg PO BID [facility] Last Admin: 06/04/21 21:09 Dose: 100 mg Documented by: Duloxetine HCl (Duloxetine 30 Mg Capsule) 60 mg PO DAILY [facility] Last Admin: 06/04/21 10:20 Dose: 60 mg Documented by: Enalaprilat (Enalaprilat 1.25 Mg/Ml Vial) 0 mg IV Q2HP PRN PRN Reason: Hypertension Last Admin: 06/04/21 22:35 Dose: 1.25 mg Documented by: Enoxaparin Sodium (Enoxaparin 40 Mg/0.4 Ml Syringe) 40 mg SQ DAILY [facility] Famotidine (Famotidine/Pf 20 Mg/2 Ml Vial) 20 mg IV HS [facility] Last Admin: 06/04/21 21:06 Dose: 20 mg Documented by: Fentanyl (Fentanyl 25 Mcg Patch) 25 mcg TOPICAL Q72H [facility] Last Admin: 06/04/21 10:18 Dose: 25 mcg Documented by: Glucose (Dextrose 31 Gm Oral.Susp) 15 gm PO PRN PRN PRN Reason: Hypoglycemia Glucose (Dextrose 31 Gm Oral.Susp) 15 gm PO PRN PRN PRN Reason: Hypoglycemia Glucose Oxid/Lactoperoxid/Muramidas (Lactoperoxi/Gluc Oxid/Pot Thio 1 Each Gel..Ea.) 1 each TOPICAL PRN PRN PRN Reason: Dry Mouth Hydralazine HCl (Hydralazine 20 Mg/Ml Vial) 10 mg IV Q4-6HP PRN PRN Reason: Hypertension Ceftriaxone Sodium 2 gm/ (Dextrose) 50 mls @ 100 mls/hr IV DAILY@0800 [facility]; Protocol Last Infusion: 06/04/21 09:39 Dose: Infused Documented by: Azithromycin 500 mg/ Dextrose 250 mls @ 250 mls/hr IV DAILY [facility]; Protocol Stop: 06/05/21 09:59 Last Infusion: 06/04/21 12:08 Dose: Infused Documented by: Sodium Chloride (Sodium Chloride 0.9%) 1,000 mls @ 100 mls/hr IV .Q10H [facility] Last Admin: 06/05/21 07:48 Dose: 100 mls/hr Documented by: Insulin Glargine (Insulin Glargine, Human 1 Unit/0.01 Ml) 5 unit SQ [facility] Last Admin: 06/04/21 21:04 Dose: 5 units Documented by: Insulin Human Lispro (Insulin Lispro 1 Unit/0.01 Ml Unit) 0 unit SQ [facility]; Protocol Last Admin: 06/04/21 21:05 Dose: 2 unit Documented by: Labetalol HCl (Labetalol 5 Mg/Ml Ml) 0 mg IV Q2HP PRN PRN Reason: Hypertension Last Admin: 06/05/21 07:33 Dose: 20 mg Documented by: Lisinopril (Lisinopril 20 Mg Tablet) 20 mg PO DAILY [facility] Last Admin: 06/04/21 10:19 Dose: 20 mg Documented by: Megestrol Acetate (Megestrol Acetate 400 Mg/10 Ml Oral.Susp) 400 mg PO DAILY [facility] Metoclopramide HCl (Metoclopramide 10 Mg/2 Ml Vial) 10 mg IV Q6 PRN PRN Reason: nausea] Morphine Sulfate (Morphine 2 Mg/Ml Vial) 1 - 4 mg IV Q3HP PRN; Protocol PRN Reason: Per Pain Protocol Last Admin: 06/03/21 20:33 Dose: 4 mg Documented by: Nystatin (Nystatin 500,000 Units/5 Ml Oral.Susp) 500,000 units SSW QID [facility] Last Admin: 06/04/21 20:41 Dose: Not Given Documented by: Ondansetron HCl (Ondansetron 4 Mg/2 Ml Vial) 4 mg IV Q4-6HP PRN PRN Reason: Nausea And Vomiting Potassium/Phosphorus/Sodium (Neutra Phos 1 Packet) 2 packet PO BID [facility] Last Admin: 06/04/21 21:06 Dose: 2 packet Documented by: Pregabalin (Pregabalin 100 Mg Capsule) 100 mg PO TID [facility] Last Admin: 06/04/21 21:06 Dose: 100 mg Documented by: Promethazine HCl (Promethazine 25 Mg Tablet) 25 mg PO Q4-6HP PRN PRN Reason: Nausea Sodium Chloride (0.9 % Sodium Chloride 10 Ml Syringe) 10 ml IV Q8 [facility] Last Admin: 06/05/21 05:04 Dose: Not Given Documented by: ABG Interpretation ABG results: 06/01/21 08:30 ABG Methemoglobin 0.3 L VBG pH 7.41 VBG pCO2 36.2 L VBG pO2 71.0 H VBG HCO3 22.5 L VBG Total CO2 23.6 L VBG O2 Saturation 89.8 H VBG Base Excess -2 A/P Assessment and plan (1) DKA, type 2: Status: Acute (2) Short bowel syndrome: Status: Acute (3) Pneumonia due to COVID-19 virus: Status: Acute (4) Malnutrition: Status: Acute (5) GERD (gastroesophageal reflux disease): Status: Acute (6) Aspiration pneumonia: Status: Acute (7) Dysphagia: Status: Acute (8) Anemia, normocytic normochromic: Status: Acute Narrative A/P Narrative: Assessment and Plans: 1. DKA: Resolved, now with overnight hypoglycemia episodes HgA1c 11.9 Insulin Lantus 5 unit HS Low dose SSI AC HS Pureed with moderate thick diet, carb consistent Accu Chek AC HS Hypoglycemia protocol 2. Dysphagia with short bowel syndrome: Pending SLT evaluation Megace Pureed with moderate thick diet, carb consistent Insure supplement 3. Abdominal pain, acute: KUB negative Continue stool softener [place] PRN moderate pain If symptoms persists, will consider CT abdomen w/o 4. GERD: Continue PEPCID 5. Anemia, normocytic normochromic: cbc w/ auto diff in the AM to trend H/H; transfuse pRBC if hemoglobin <7.0, active bleeding, or symptomatic 6. CoVID pneumonia: Supplemental oxygen titrate to achieve spo2>=92%, currently at 6L/min oxygen Dexamethasone Lovenox Hold Remdesivir due to elevated LFTs Isolation protocol: airborne and contact 7. Aspiration pneumonia associated with dysphagia: Supplemental oxygen titrate to achieve spo2>=92%, currently at 6L/min oxygen Rocephin Zithromax 8. Essential HTN: Continue Lisinopril Add Amlodipine for better blood pressure control Hydralazine 10mg IV q4hr PRN SBP>=180mmHg and/or DBP>=110mmHg GI ppx: PEPCID DVT ppx: Lovenox Code status: Full Prognosis: Guarded Disposition: Inpatient PCU Time Spent With Patient Time: Total time spent is greater than 50% in coordination of care (as documented) at patient's floor/unit and/or counseling patient: Total time spent with greater than 50% in coordination of care (as documented) at patient's floor/unit and/or counseling patient:: Greater than 35 minutes QUALITY VTE Deep Vein Thrombosis/Pulmonary Embolism Present on Admission: No
[2021-06-05] MEDS: cefTRIAXone 2 GM in DEXTROSE 5% IN WATER 50 ML IV SCH (09:04)
[2021-06-05] MEDS: amLODIPine 10 MG TABLET PO SCH (09:06)
[2021-06-05] MEDS: ENOXAPARIN 40 MG/0.4 ML SYRINGE SQ SCH (09:06)
[2021-06-05] MEDS: LISINOPRIL 20 MG TABLET PO SCH (09:06)
[2021-06-05] MEDS: DEXAMETHASONE 10 MG/ML VIAL IV SCH (09:06)
[2021-06-05] MEDS: NEUTRA PHOS 1 PACKET PO SCH ×2 (09:06→21:11)
[2021-06-05] MEDS: DOCUSATE SODIUM 100 MG CAPSULE PO SCH ×2 (09:06→21:10)
[2021-06-05] MEDS: LIPASE/PROTEASE/AMYLASE 1 CAP CAPSULE PO SCH ×4 (09:07→21:11)
[2021-06-05] MEDS: NYSTATIN 500,000 UNITS/5 ML ORAL.SUSP SSW SCH ×4 (09:20→20:52)
[2021-06-05] MEDS: MEGESTROL ACETATE 400 MG/10 ML ORAL.SUSP PO SCH (09:20)
[2021-06-05] MEDS: DULoxetine 30 MG CAPSULE PO SCH (09:27)
[2021-06-05] MEDS: PREGABALIN 100 MG CAPSULE PO SCH ×3 (09:27→21:13)
[2021-06-05] MEDS: AZITHROMYCIN 500 MG in DEXTROSE 5% IN WATER 250 ML IV SCH (09:28)
[2021-06-05] MEDS ORDERED: POLYETHYLENE GLYCOL 3350 17 GM PACKET PO PRN (10:05)
[2021-06-05] MEDS: INSULIN LISPRO 1 UNIT/0.01 ML UNIT SQ SCH ×4 (10:35→21:12)
[2021-06-05 13:46] LABS: Vitamin D 25 Hydroxy-SO 28.38 ng/mL (>30.00)
[2021-06-05 14:23] LABS: Parathyroid Hormone Intact-SO 41.7 pg/mL (15.0-65.0)
[2021-06-05] MEDS: HYDROCODONE/APAP 7.5/325MG TABLET PO PRN (14:50)
[2021-06-05] MEDS: AMITRIPTYLINE 25 MG TABLET PO SCH (21:10)
[2021-06-05] MEDS: INSULIN GLARGINE, HUMAN 1 UNIT/0.01 ML SQ SCH (21:12)
[2021-06-05] MEDS: FAMOTIDINE/PF 20 MG/2 ML VIAL IV SCH (21:13)
[2021-06-06] MEDS: LABETALOL 5 MG/ML ML IV PRN ×2 (02:14→07:52)
[2021-06-06] MEDS: 0.9 % SODIUM CHLORIDE 10 ML SYRINGE IV SCH ×3 (05:26→20:43)
[2021-06-06] MEDS: INSULIN LISPRO 1 UNIT/0.01 ML UNIT SQ SCH ×4 (07:43→21:09)
--- NOTE | 2021-06-06 08:47 | Internal Med Progress Note ---
SUBJECTIVE Subjective Patient information: Note initiated : 06/06/21 at 8:41 am Service Date, if different from initiated Date: [] Patient: John Walker a 55 y/o M admitted on 05/31/21 for Diabetic Ketoacidosis. Chief Complaint: [CoVID pneumonia, aspiration pneumonia ] Interval history: History of present illness: Mr. Walker is a 55 year old M Presents to the ED in [facility] for generalized weakness and shortness of breath, cough, nausea/vomiting, also complains of abdominal pain abdominal pain. States all the symptoms been going on for about a week. Patient was tested positive for Covid on May 23. Chest x-ray with [facility] ed RLL infiltrate and chronic scarring/atelecasis. currently on 3 L NC O2, unknown baseline requirement if any. Patient is cachectic and has a history of dumping syndrome with a history of gastric surgery. He was found to be in DKA with a bicarb of 5 and a pH of 7.13 on VBG. Pseudohyponatremia. Glucose 553. Also hyperkalemic at 6.7, EKG with some peaked T waves and 1 amp of bicarb ordered. Also got calcium gluconate. Lactate within normal limits Vital signs stable. 06/01 Poor sleep last night. DKA improving. On 2 L nasal cannula. 06/02 Laboratory much improved although still has a high white blood cell count. Urine unremarkable. No obvious source of infection. CT abdomen pelvis unre markable. Will check procalcitonin. Patient currently sleeping no overnight event or new complaints. Awakens to voice but very sleepy. 06/03 Patient feeling much better today. Awake and alert. Liver enzymes jumped quite a bit and will DC remdesivir. Can also be related to possibly hypoxic episode yesterday when he aspirated. 06/04: Been afebrile overnight. Currently on 6L/min oxygen. Episodes of hypoglycemia overnight. Poor appetite, on Pureed moderately thick diet while awaiting SLT evaluation. c/o moderate to severe RLQ abdominal pain. c/o mild-moderate SOB. Denies cough. Denies wheezing. Denies fever chills or sweating. Denies nausea vomiting diarrhea, or constipation. 06/05: Fasting glucose level 68. Poor appetite. Oxygen requirement 8L/min overnight, currently at 6L/min. Poor appetite. c/o mild SOB. c/o productive cough. Denies fever chills or sweating. Denies nausea or vomiting. c/o LLQ abdominal pain. 06/06: Fasting glucose level 134. Good appetite. Ate most food. Oxygen requirement currently at 5L/min. c/o mild SOB. c/o productive cough. Denies fever chills or sweating. Denies nausea or vomiting. c/o chronic lower abdominal pain. Constitutional Vitals: Vital Signs Temp Pulse Resp BP Pulse Ox 36.8 C 49 L 13 167/88 99 06/06/21 02:01 06/06/21 08:00 06/06/21 08:00 06/06/21 07:47 06/06/21 08:00 Period Temp Pulse Resp BP Sys/Camara Pulse Ox Last 24 Hr 36.4 C-37.0 C 49 9-20 111-179/68-102 93-100 Intake and Output 06/05/21 06/06/21 06/06/21 21:59 05:59 13:59 Intake Total 1627 200 Output Total 300 925 Balance 1327 -725 Weight 50.576 kg Intake & Output: Intake & Output 06/05/21 06/06/21 06/06/21 21:59 05:59 13:59 Intake Total 1627 200 Output Total 300 925 Balance 1327 -725 Weight 50.576 kg Intake: IV 1227 Sodium Chloride 0.9% 1,000 ml @ 1227 100 mls/hr IV .Q10H [facility] Rx#: [id number] Oral 400 200 Output: Urine Catheter Amount 300 925 Other: Meal Dinner Percent of Meal Consumed 75% Urine Appearance Clear Clear Clear Urine Color Bright Yellow Dark Yellow Bright Yellow Urine Odor Normal Normal # Bowel Movements 0 General appearance: cooperative, disheveled and no acute distress Exam: cachetic Head Head exam: Present atraumatic and normocephalic Eye Eye exam: Present EOMI and PERRL ENT ENT exam: Present mucous membranes moist, normal exam and normal external ear exam Additional comments: Nasal cannula in place Neck Neck exam: Present normal inspection; Absent lymphadenopathy, tenderness and thyromegaly Respiratory Respiratory exam: Present rhonchi; Absent accessory muscle use, respiratory distress and wheezes Cardiovascular Cardiovascular exam: Present normal rate and rhythm; Absent JVD GI/Abdominal GI/Abdominal exam: Present normal bowel sounds, soft and tenderness; Absent organomegaly Rectal Rectal exam: Present deferred Extremities Exam Extremities exam: Present full ROM, normal capillary refill and normal inspection; Absent tenderness Neurological Exam Neurological exam: Present alert, CN II-XII intact and oriented X3; Absent motor sensory deficit Psychiatric Psychiatric exam: Present normal affect and normal mood; Absent anxious and depressed Skin Skin exam: Present dry and intact OBJ DATA Labs CBC & Chem 7: 06/04/21 05:14 06/04/21 05:14 Labs: Abnormal Lab Results 06/05/21 06/04/21 06/04/21 11:55 05:14 05:14 WBC 15.2 H RBC 3.68 L Hgb 11.7 L Hct 34.0 L MPV 11.5 H Neut % (Auto) 84.6 H Lymph % (Auto) 11.8 L Absolute Neutrophils 12.87 H Carbon Dioxide 32 H BUN 21 H Glucose 52 L GGT 232 H AST 60 H ALT 64 H Alkaline Phosphatase 463 H Lactate Dehydrogenase 298 H C-Reactive Protein Albumin 2.8 L Globulin Albumin/Globulin Ratio 0.8 L 25-OH Vitamin D Total 28.38 L Procalcitonin 06/04/21 06/03/21 06/03/21 05:13 08:49 08:48 WBC RBC Hgb Hct MPV Neut % (Auto) Lymph % (Auto) Absolute Neutrophils Carbon Dioxide BUN Glucose GGT AST 236 H ALT 116 H Alkaline Phosphatase 718 H Lactate Dehydrogenase C-Reactive Protein 14.20 H Albumin 3.1 L Globulin 4.4 H Albumin/Globulin Ratio 25-OH Vitamin D Total Procalcitonin 0.29 H 06/03/21 06/03/21 08:48 05:27 WBC RBC Hgb Hct MPV Neut % (Auto) Lymph % (Auto) Absolute Neutrophils Carbon Dioxide BUN Glucose GGT AST ALT Alkaline Phosphatase Lactate Dehydrogenase C-Reactive Protein 22.00 H Albumin Globulin Albumin/Globulin Ratio 25-OH Vitamin D Total Procalcitonin 0.22 H Meds: Medications Acetaminophen (Acetaminophen 325 Mg Tablet) 650 mg PO Q4-6HP PRN; Protocol PRN Reason: Per Pain Protocol/Fever > 101 Hydrocodone Bitart/Acetaminophen (Hydrocodone/Apap 7.5/325mg Tablet) 1 tab PO Q6HP PRN; Protocol PRN Reason: Per Pain Protocol Last Admin: 06/05/21 14:50 Dose: 1 tab Documented by: Albuterol/Ipratropium (Ipratropium/Albuterol 3 Ml Ampul.Neb) 3 ml NEB Q4HRT PRN PRN Reason: sob Last Admin: 06/02/21 12:24 Dose: 3 ml Documented by: Amitriptyline HCl (Amitriptyline 25 Mg Tablet) 25 mg PO HS [facility] Last Admin: 06/05/21 21:10 Dose: 25 mg Documented by: Amlodipine Besylate (Amlodipine 10 Mg Tablet) 10 mg PO DAILY [facility] Last Admin: 06/05/21 09:06 Dose: 10 mg Documented by: Lipase/Protease/Amylase (Lipase/Protease/Amylase 1 Cap Capsule) 3 cap PO CCHS [facility] Last Admin: 06/05/21 21:11 Dose: 3 cap Documented by: Cyclobenzaprine HCl (Cyclobenzaprine 10 Mg Tablet) 10 mg PO TIDP PRN PRN Reason: Muscle Spasm Dexamethasone (Dexamethasone 10 Mg/Ml Vial) 6 mg IV DAILY [facility] Last Admin: 06/05/21 09:06 Dose: 6 mg Documented by: Dextrose (Dextrose 50% 50 Ml Vial) 0 ml IV UD PRN PRN Reason: Hypoglycemia Last Admin: 06/05/21 07:12 Dose: 25 ml Documented by: Dextrose (Dextrose 50% 50 Ml Vial) 0 ml IV UD PRN PRN Reason: Hypoglycemia Diagnostic Test (Pha) (Accu-Chek 1 Each Strip) 1 each FS ACHS [facility] Last Admin: 06/06/21 07:42 Dose: 1 each Documented by: Docusate Sodium (Docusate Sodium 100 Mg Capsule) 100 mg PO BID [facility] Last Admin: 06/05/21 21:10 Dose: 100 mg Documented by: Duloxetine HCl (Duloxetine 30 Mg Capsule) 60 mg PO DAILY [facility] Last Admin: 06/05/21 09:27 Dose: 60 mg Documented by: Enalaprilat (Enalaprilat 1.25 Mg/Ml Vial) 0 mg IV Q2HP PRN PRN Reason: Hypertension Last Admin: 06/04/21 22:35 Dose: 1.25 mg Documented by: Enoxaparin Sodium (Enoxaparin 40 Mg/0.4 Ml Syringe) 40 mg SQ DAILY [facility] Last Admin: 06/05/21 09:06 Dose: 40 mg Documented by: Famotidine (Famotidine/Pf 20 Mg/2 Ml Vial) 20 mg IV [facility] Last Admin: 06/05/21 21:13 Dose: 20 mg Documented by: Fentanyl (Fentanyl 25 Mcg Patch) 25 mcg TOPICAL Q72H [facility] Last Admin: 06/04/21 10:18 Dose: 25 mcg Documented by: Glucose (Dextrose 31 Gm Oral.Susp) 15 gm PO PRN PRN PRN Reason: Hypoglycemia Glucose (Dextrose 31 Gm Oral.Susp) 15 gm PO PRN PRN PRN Reason: Hypoglycemia Glucose Oxid/Lactoperoxid/Muramidas (Lactoperoxi/Gluc Oxid/Pot Thio 1 Each Gel..Ea.) 1 each TOPICAL PRN PRN PRN Reason: Dry Mouth Hydralazine HCl (Hydralazine 20 Mg/Ml Vial) 10 mg IV Q4-6HP PRN PRN Reason: Hypertension Ceftriaxone Sodium 2 gm/ (Dextrose) 50 mls @ 100 mls/hr IV DAILY@0800 [facility]; Protocol Last Infusion: 06/05/21 10:53 Dose: Infused Documented by: Insulin Glargine (Insulin Glargine, Human 1 Unit/0.01 Ml) 5 unit SQ [facility] Last Admin: 06/05/21 21:12 Dose: 5 units Documented by: Insulin Human Lispro (Insulin Lispro 1 Unit/0.01 Ml Unit) 0 unit SQ [facility]; Protocol Last Admin: 06/06/21 07:43 Dose: Not Given Documented by: Labetalol HCl (Labetalol 5 Mg/Ml Ml) 0 mg IV Q2HP PRN PRN Reason: Hypertension Last Admin: 06/06/21 07:52 Dose: 10 mg Documented by: Lisinopril (Lisinopril 20 Mg Tablet) 40 mg PO DAILY [facility] Megestrol Acetate (Megestrol Acetate 400 Mg/10 Ml Oral.Susp) 400 mg PO DAILY [facility] Last Admin: 06/05/21 09:20 Dose: 400 mg Documented by: Metoclopramide HCl (Metoclopramide 10 Mg/2 Ml Vial) 10 mg IV Q6 PRN PRN Reason: nausea] Morphine Sulfate (Morphine 2 Mg/Ml Vial) 1 - 4 mg IV Q3HP PRN; Protocol PRN Reason: Per Pain Protocol Last Admin: 06/03/21 20:33 Dose: 4 mg Documented by: Nystatin (Nystatin 500,000 Units/5 Ml Oral.Susp) 500,000 units SSW QID [facility] Last Admin: 06/05/21 20:52 Dose: Not Given Documented by: Ondansetron HCl (Ondansetron 4 Mg/2 Ml Vial) 4 mg IV Q4-6HP PRN PRN Reason: Nausea And Vomiting Polyethylene Glycol (Polyethylene Glycol 3350 17 Gm Packet) 17 gm PO DAILYP PRN PRN Reason: Constipation Last Admin: 06/05/21 14:50 Dose: 17 gm Documented by: Potassium/Phosphorus/Sodium (Neutra Phos 1 Packet) 2 packet PO BID [facility] Last Admin: 06/05/21 21:11 Dose: 2 packet Documented by: Pregabalin (Pregabalin 100 Mg Capsule) 100 mg PO TID [facility] Last Admin: 06/05/21 21:13 Dose: 100 mg Documented by: Promethazine HCl (Promethazine 25 Mg Tablet) 25 mg PO Q4-6HP PRN PRN Reason: Nausea Sodium Chloride (0.9 % Sodium Chloride 10 Ml Syringe) 10 ml IV Q8 [facility] Last Admin: 06/06/21 05:26 Dose: 10 ml Documented by: ABG Interpretation ABG results: 06/01/21 08:30 ABG Methemoglobin 0.3 L VBG pH 7.41 VBG pCO2 36.2 L VBG pO2 71.0 H VBG HCO3 22.5 L VBG Total CO2 23.6 L VBG O2 Saturation 89.8 H VBG Base Excess -2 A/P Assessment and plan (1) DKA, type 2: Status: Acute (2) Short bowel syndrome: Status: Acute (3) Pneumonia due to COVID-19 virus: Status: Acute (4) Malnutrition: Status: Acute (5) GERD (gastroesophageal reflux disease): Status: Acute (6) Aspiration pneumonia: Status: Acute (7) Dysphagia: Status: Acute (8) Anemia, normocytic normochromic: Status: Acute Narrative A/P Narrative: Assessment and Plans: 1. DKA: Resolved, now with overnight hypoglycemia episodes HgA1c 11.9 Insulin Lantus 5 unit HS Low dose SSI AC HS Dysphagia 6 diabetic diet Accu Chek AC HS Hypoglycemia protocol 2. Dysphagia with short bowel syndrome: SLT evaluation-->Dysphagia 6 diabetic diet Megace Insure supplement 3. Abdominal pain, chronic: KUB negative Continue stool softener [place] PRN moderate pain If symptoms persists, will consider CT abdomen w/o 4. GERD: Continue PEPCID 5. Anemia, normocytic normochromic: cbc w/ auto diff in the AM to trend H/H; transfuse pRBC if hemoglobin <7.0, active bleeding, or symptomatic 6. CoVID pneumonia: Supplemental oxygen titrate to achieve spo2>=92%, currently at 5L/min oxygen Dexamethasone Lovenox Hold Remdesivir due to elevated LFTs Isolation protocol: airborne and contact 7. Aspiration pneumonia associated with dysphagia: Supplemental oxygen titrate to achieve spo2>=92%, currently at 5L/min oxygen Rocephin Zithromax 8. Essential HTN: Increase Lisinopril from 20 to 40mg PO for better blood pressure control Add Amlodipine for better blood pressure control Hydralazine 10mg IV q4hr PRN SBP>=180mmHg and/or DBP>=110mmHg GI ppx: PEPCID DVT ppx: Lovenox Code status: Full Prognosis: Guarded Disposition: Inpatient PCU Time Spent With Patient Time: Total time spent is greater than 50% in coordination of care (as documented) at patient's floor/unit and/or counseling patient: QUALITY VTE Deep Vein Thrombosis/Pulmonary Embolism Present on Admission: No
[2021-06-06] MEDS: PREGABALIN 100 MG CAPSULE PO SCH ×3 (08:51→20:43)
[2021-06-06] MEDS: DULoxetine 30 MG CAPSULE PO SCH (08:51)
[2021-06-06] MEDS: NYSTATIN 500,000 UNITS/5 ML ORAL.SUSP SSW SCH ×4 (08:51→20:43)
[2021-06-06] MEDS: ENOXAPARIN 40 MG/0.4 ML SYRINGE SQ SCH (08:51)
[2021-06-06] MEDS: LISINOPRIL 20 MG TABLET PO SCH (08:52)
[2021-06-06] MEDS: amLODIPine 10 MG TABLET PO SCH (08:52)
[2021-06-06] MEDS: NEUTRA PHOS 1 PACKET PO SCH ×2 (08:52→20:43)
[2021-06-06] MEDS: DOCUSATE SODIUM 100 MG CAPSULE PO SCH ×2 (08:52→20:43)
[2021-06-06] MEDS: cefTRIAXone 2 GM in DEXTROSE 5% IN WATER 50 ML IV SCH (08:52)
[2021-06-06] MEDS: MEGESTROL ACETATE 400 MG/10 ML ORAL.SUSP PO SCH (08:53)
[2021-06-06] MEDS: DEXAMETHASONE 10 MG/ML VIAL IV SCH (08:53)
[2021-06-06] MEDS: LIPASE/PROTEASE/AMYLASE 1 CAP CAPSULE PO SCH ×4 (08:53→20:45)
[2021-06-06] MEDS ORDERED: GLYCERIN, ADULT 1 SUPP.RECT PR ONE (09:32)
[2021-06-06 09:47] LABS: Basophils # (Auto) 0.02 K/mcL (0.00-0.30); Basophils % (Auto) 0.1 % (0.0-2.0); Eosinophils # (Auto) 0.08 K/mcL (0.00-0.70); Eosinophils % (Auto) 0.5 % (0.0-7.0); Hematocrit 34.9 % (40.1-51.0); Hemoglobin 12.4 g/dL (13.7-17.5); Lymphocytes # (Auto) 3.42 K/mcL (1.50-4.80); Lymphocytes % (Auto) 22.5 % (15.5-49.0); Mean Cell Volume 94.8 fL (80.0-100.0); Mean Corpuscular HGB Conc 35.5 g/dL (31.0-36.0); Mean Platelet Volume 11.2 fL (7.4-10.4); Monocytes # (Auto) 1.38 K/mcL (0.10-0.90); Monocytes % (Auto) 9.1 % (1.0-12.0); Neutrophils % (Auto) 67.8 % (38.0-78.0); Platelet Count 489 K/mcL (140-440); RBC 3.68 M/mcL (4.63-6.08); Red Cell Distribution Width 13.8 % (11.5-14.5); WBC 15.2 K/mcL (4.5-11.0)
[2021-06-06 12:12] LABS: ALT/SGPT 27 U/L (<40); AST/SGOT 18 U/L (<40); Albumin 2.5 gm/dL (3.2-5.2); Albumin/Globulin Ratio 0.6 (1.0-2.3); Alkaline Phosphatase 314 U/L (39-117); Bilirubin,Total 0.3 mg/dL (0.1-1.0); Blood Urea Nitrogen 7 mg/dL (6-20); Calcium 8.7 mg/dL (8.6-10.4); Carbon Dioxide 30 mmol/L (22-30); Chloride 91 mmol/L (96-108); Globulin 3.9 gm/dL (2.2-3.7); Glomerular Filtration Rate 106; Glucose 342 mg/dL (70-105)
[2021-06-06] MEDS: HYDROCODONE/APAP 7.5/325MG TABLET PO PRN ×2 (15:16→20:45)
[2021-06-06] MEDS ORDERED: DEXTROSE 50% 50 ML VIAL IV PRN (18:51)
[2021-06-06] MEDS ORDERED: DEXTROSE 31 GM ORAL.SUSP PO PRN (18:51)
[2021-06-06] MEDS: FAMOTIDINE/PF 20 MG/2 ML VIAL IV SCH (20:43)
[2021-06-06] MEDS: AMITRIPTYLINE 25 MG TABLET PO SCH (20:43)
[2021-06-06] MEDS: INSULIN GLARGINE, HUMAN 1 UNIT/0.01 ML SQ SCH (20:44)
[2021-06-06] MEDS ORDERED: INSULIN LISPRO 1 UNIT/0.01 ML UNIT SQ ONE (21:16)
[2021-06-07] MEDS: 0.9 % SODIUM CHLORIDE 10 ML SYRINGE IV SCH ×3 (05:53→20:44)
[2021-06-07] MEDS: LABETALOL 5 MG/ML ML IV PRN (06:09)
[2021-06-07 06:56] LABS: Basophils # (Auto) 0.02 K/mcL (0.00-0.30); Basophils % (Auto) 0.1 % (0.0-2.0); Eosinophils % (Auto) 0.7 % (0.0-7.0); Hematocrit 34.2 % (40.1-51.0); Hemoglobin 11.5 g/dL (13.7-17.5); Lymphocytes # (Auto) 3.67 K/mcL (1.50-4.80); Lymphocytes % (Auto) 26.4 % (15.5-49.0); Mean Cell Volume 92.9 fL (80.0-100.0); Mean Corpuscular HGB Conc 33.6 g/dL (31.0-36.0); Mean Platelet Volume 11.4 fL (7.4-10.4); Monocytes # (Auto) 1.67 K/mcL (0.10-0.90); Neutrophils % (Auto) 60.8 % (38.0-78.0); Platelet Count 538 K/mcL (140-440); RBC 3.68 M/mcL (4.63-6.08); Red Cell Distribution Width 13.6 % (11.5-14.5); WBC 13.9 K/mcL (4.5-11.0)
[2021-06-07 07:14] LABS: ALT/SGPT 22 U/L (<40); AST/SGOT 16 U/L (<40); Albumin 2.6 gm/dL (3.2-5.2); Albumin/Globulin Ratio 0.7 (1.0-2.3); Alkaline Phosphatase 286 U/L (39-117); Bilirubin,Total 0.3 mg/dL (0.1-1.0); Blood Urea Nitrogen 11 mg/dL (6-20); Carbon Dioxide 29 mmol/L (22-30); Chloride 91 mmol/L (96-108); Globulin 3.8 gm/dL (2.2-3.7); Glomerular Filtration Rate 96; Glucose 98 mg/dL (70-105)
[2021-06-07] MEDS: INSULIN LISPRO 1 UNIT/0.01 ML UNIT SQ SCH ×4 (08:03→20:57)
[2021-06-07] MEDS: ENOXAPARIN 40 MG/0.4 ML SYRINGE SQ SCH (08:04)
[2021-06-07] MEDS: LISINOPRIL 20 MG TABLET PO SCH (08:04)
[2021-06-07] MEDS: DEXAMETHASONE 10 MG/ML VIAL IV SCH (08:04)
[2021-06-07] MEDS: NYSTATIN 500,000 UNITS/5 ML ORAL.SUSP SSW SCH ×5 (08:04→20:44)
[2021-06-07] MEDS: NEUTRA PHOS 1 PACKET PO SCH ×2 (08:04→20:44)
[2021-06-07] MEDS: DOCUSATE SODIUM 100 MG CAPSULE PO SCH ×2 (08:05→20:43)
[2021-06-07] MEDS: MEGESTROL ACETATE 400 MG/10 ML ORAL.SUSP PO SCH (08:05)
[2021-06-07] MEDS: amLODIPine 10 MG TABLET PO SCH (08:05)
[2021-06-07] MEDS: DULoxetine 30 MG CAPSULE PO SCH (08:11)
[2021-06-07] MEDS: fentaNYL 25 MCG PATCH TOPICAL SCH (08:11)
[2021-06-07] MEDS: PREGABALIN 100 MG CAPSULE PO SCH ×3 (08:11→20:43)
[2021-06-07] MEDS: cefTRIAXone 2 GM in DEXTROSE 5% IN WATER 50 ML IV SCH (08:12)
[2021-06-07] MEDS: LIPASE/PROTEASE/AMYLASE 1 CAP CAPSULE PO SCH ×4 (08:13→20:44)
--- NOTE | 2021-06-07 08:42 | Internal Med Progress Note ---
SUBJECTIVE Subjective Patient information: Note initiated : 06/07/21 at 8:41 am Service Date, if different from initiated Date: [] Patient: John Walker a 55 y/o M admitted on 05/31/21 for Diabetic Ketoacidosis. Chief Complaint: [] Interval history: History of present illness: Mr. Walker is a 55 year old M Presents to the ED in [facility] for generalized weakness and shortness of breath, cough, nausea/vomiting, also complains of abdominal pain abdominal pain. States all the symptoms been going on for about a week. Patient was tested positive for Covid on May 23. Chest x-ray with increased RLL infiltrate and chronic scarring/atelecasis. currently on 3 L NC O2, unknown baseline requirement if any. Patient is cachectic and has a history of dumping syndrome with a history of gastric surgery. He was found to be in DKA with a bicarb of 5 and a pH of 7.13 on VBG. Pseudohyponatremia. Glucose 553. Also hyperkalemic at 6.7, EKG with some peaked T waves and 1 amp of bicarb ordered. Also got calcium gluconate. Lactate within normal limits Vital signs stable. 06/01 Poor sleep last night. DKA improving. On 2 L nasal cannula. 06/02 Laboratory much improved although still has a high white blood cell count. Urine unremarkable. No obvious source of infection. CT abdomen pelvis unremarkable. Will check procalcitonin. Patient currently sleeping no overnight event or new complaints. Awakens to voice but very sleepy. 06/03 Patient feeling much better today. Awake and alert. Liver enzymes jumped quite a bit and will DC remdesivir. Can also be related to possibly hypoxic episode yesterday when he aspirated. 06/04: Been afebrile overnight. Currently on 6L/min oxygen. Episodes of hypoglycemia overnight. Poor appetite, on Pureed moderately thick diet while awaiting SLT evaluation. c/o moderate to severe RLQ abdominal pain. c/o mild-moderate SOB. Denies cough. Denies wheezing. Denies fever chills or sweating. Denies nausea vomiting diarrhea, or constipation. 06/05: Fasting glucose level 68. Poor appetite. Oxygen requirement 8L/min overnight, currently at 6L/min. Poor appetite. c/o mild SOB. c/o productive cough. Denies fever chills or sweating. Denies nausea or vomiting. c/o LLQ abdominal pain. 06/06: Fasting glucose level 134. Good appetite. Ate most food. Oxygen requirement currently at 5L/min. c/o mild SOB. c/o productive cough. Denies fever chills or sweating. Denies nausea or vomiting. c/o chronic lower abdominal pain. 06/07: Afebrile. On 1L/min oxygen. Ate most food, good appetite. Denies SOB. c/o nonproductive cough. Denies fever chills or sweating. Denies nausea or vomiting. c/o chronic lower abdominal pain. Constitutional Vitals: Vital Signs Temp Pulse Resp BP Pulse Ox 36.4 C 105 H 18 141/117 95 06/07/21 08:01 06/06/21 21:00 06/07/21 08:01 06/07/21 08:01 06/07/21 08:01 Period Temp Pulse Resp BP Sys/Camara Pulse Ox Last 24 Hr 36.4 C-37.2 C 105 10-19 99-162/44-117 89-99 Intake and Output 06/06/21 06/07/21 06/07/21 21:59 05:59 13:59 Intake Total 480 1140 Output Total 1500 550 225 Balance -1020 590 -225 Weight 49.215 kg Intake & Output: Intake & Output 06/06/21 06/07/21 06/07/21 21:59 05:59 13:59 Intake Total 480 1140 Output Total 1500 550 225 Balance -1020 590 -225 Weight 49.215 kg Intake: Nourishment/Supplement quantity 120 (ml) Oral 480 1020 Output: Urine Catheter Amount 1500 Void Amount 550 225 Other: Meal Nourishment/Supplement Nourishment/Supplement Percent of Meal Consumed Refused Feeding Ability Independent Nourishment/Supplement name glucerna Urine Appearance Clear Clear Clear Urine Color Light Yu Bright Yellow Light Yu Urine Odor Normal Normal General appearance: cooperative, disheveled and no acute distress Exam: cachetic Head Head exam: Present atraumatic and normal inspection Eye Eye exam: Present normal appearance ENT ENT exam: Present mucous membranes moist, normal exam and normal external ear exam Additional comments: Nasal cannula in place Neck Neck exam: Present normal inspection Respiratory Respiratory exam: Present normal respiratory exam and rhonchi; Absent wheezes Cardiovascular Cardiovascular exam: Present normal rate and rhythm GI/Abdominal GI/Abdominal exam: Present normal bowel sounds Back Exam Back exam: Present normal inspection Neurological Exam Neurological exam: Present alert and oriented X3 Skin Skin exam: Present intact and warm OBJ DATA Labs CBC & Chem 7: 06/07/21 06:02 06/07/21 06:02 Labs: Abnormal Lab Results 06/07/21 06/07/21 06/06/21 06:02 06:02 10:16 WBC 13.9 H RBC 3.68 L Hgb 11.5 L Hct 34.2 L Plt Count 538 H MPV 11.4 H Prentiss # (Auto) 1.67 H Absolute Neutrophils 8.46 H Sodium 130 L 130 L Chloride 91 L 91 L Glucose 342 H Alkaline Phosphatase 286 H 314 H Albumin 2.6 L 2.5 L Globulin 3.8 H 3.9 H Albumin/Globulin Ratio 0.7 L 0.6 L 25-OH Vitamin D Total 06/06/21 06/05/21 09:10 11:55 WBC 15.2 H RBC 3.68 L Hgb 12.4 L Hct 34.9 L Plt Count 489 H MPV 11.2 H Prentiss # (Auto) 1.38 H Absolute Neutrophils 10.28 H Sodium Chloride Glucose Alkaline Phosphatase Albumin Globulin Albumin/Globulin Ratio 25-OH Vitamin D Total 28.38 L Meds: Medications Acetaminophen (Acetaminophen 325 Mg Tablet) 650 mg PO Q4-6HP PRN; Protocol PRN Reason: Per Pain Protocol/Fever > 101 Hydrocodone Bitart/Acetaminophen (Hydrocodone/Apap 7.5/325mg Tablet) 1 tab PO Q6HP PRN; Protocol PRN Reason: Per Pain Protocol Last Admin: 06/06/21 20:45 Dose: 1 tab Documented by: Albuterol/Ipratropium (Ipratropium/Albuterol 3 Ml Ampul.Neb) 3 ml NEB Q4HRT PRN PRN Reason: sob Last Admin: 06/02/21 12:24 Dose: 3 ml Documented by: Amitriptyline HCl (Amitriptyline 25 Mg Tablet) [address] [facility] Last Admin: 06/06/21 20:43 Dose: 25 mg Documented by: Amlodipine Besylate (Amlodipine 10 Mg Tablet) 10 mg PO DAILY [facility] Last Admin: 06/07/21 08:05 Dose: 10 mg Documented by: Lipase/Protease/Amylase (Lipase/Protease/Amylase 1 Cap Capsule) [address] [facility] Last Admin: 06/07/21 08:13 Dose: 3 cap Documented by: Cyclobenzaprine HCl (Cyclobenzaprine 10 Mg Tablet) 10 mg PO TIDP PRN PRN Reason: Muscle Spasm Last Admin: 06/06/21 23:23 Dose: 10 mg Documented by: Dexamethasone (Dexamethasone 10 Mg/Ml Vial) [address] [facility] Last Admin: 06/07/21 08:04 Dose: 6 mg Documented by: Dextrose (Dextrose 50% 50 Ml Vial) 0 ml IV UD PRN PRN Reason: Hypoglycemia Last Admin: 06/05/21 07:12 Dose: 25 ml Documented by: Dextrose (Dextrose 50% 50 Ml Vial) 0 ml IV UD PRN PRN Reason: Hypoglycemia Dextrose (Dextrose 50% 50 Ml Vial) 0 ml IV UD PRN PRN Reason: Hypoglycemia Diagnostic Test (Pha) (Accu-Chek 1 Each Strip) [address] [facility] Last Admin: 06/07/21 08:04 Dose: 1 each Documented by: Diagnostic Test (Pha) (Accu-Chek 1 Each Strip) [address] [facility] Last Admin: 06/07/21 08:31 Dose: Not Given Documented by: Docusate Sodium (Docusate Sodium 100 Mg Capsule) [address] [facility] Last Admin: 06/07/21 08:05 Dose: 100 mg Documented by: Duloxetine HCl (Duloxetine 30 Mg Capsule) [address] [facility] Last Admin: 06/07/21 08:11 Dose: 60 mg Documented by: Enalaprilat (Enalaprilat 1.25 Mg/Ml Vial) 0 mg IV Q2HP PRN PRN Reason: Hypertension Last Admin: 06/04/21 22:35 Dose: 1.25 mg Documented by: Enoxaparin Sodium (Enoxaparin 40 Mg/0.4 Ml Syringe) [address] [facility] Last Admin: 06/07/21 08:04 Dose: 40 mg Documented by: Famotidine (Famotidine/Pf 20 Mg/2 Ml Vial) [address] [facility] Last Admin: 06/06/21 20:43 Dose: 20 mg Documented by: Fentanyl (Fentanyl 25 Mcg Patch) [address] [facility] Last Admin: 06/07/21 08:11 Dose: 25 mcg Documented by: Glucose (Dextrose 31 Gm Oral.Susp) 15 gm PO PRN PRN PRN Reason: Hypoglycemia Glucose (Dextrose 31 Gm Oral.Susp) 15 gm PO PRN PRN PRN Reason: Hypoglycemia Glucose (Dextrose 31 Gm Oral.Susp) 15 gm PO PRN PRN PRN Reason: Hypoglycemia Glucose Oxid/Lactoperoxid/Muramidas (Lactoperoxi/Gluc Oxid/Pot Thio 1 Each Gel..Ea.) 1 each TOPICAL PRN PRN PRN Reason: Dry Mouth Hydralazine HCl (Hydralazine 20 Mg/Ml Vial) 10 mg IV Q4-6HP PRN PRN Reason: Hypertension Ceftriaxone Sodium 2 gm/ (Dextrose) 50 mls @ 100 mls/hr IV DAILY@0800 [facility]; Protocol Last Admin: 06/07/21 08:12 Dose: 100 mls/hr Documented by: Insulin Glargine (Insulin Glargine, Human 1 Unit/0.01 Ml) 5 unit SQ [facility] Last Admin: 06/06/21 20:44 Dose: 5 units Documented by: Insulin Human Lispro (Insulin Lispro 1 Unit/0.01 Ml Unit) 0 unit SQ [facility]; Protocol Last Admin: 06/07/21 08:03 Dose: 2 unit Documented by: Labetalol HCl (Labetalol 5 Mg/Ml Ml) 0 mg IV Q2HP PRN PRN Reason: Hypertension Last Admin: 06/07/21 06:09 Dose: 10 mg Documented by: Lisinopril (Lisinopril 20 Mg Tablet) [address] [facility] Last Admin: 06/07/21 08:04 Dose: 40 mg Documented by: Megestrol Acetate (Megestrol Acetate 400 Mg/10 Ml Oral.Susp) [address] [facility] Last Admin: 06/07/21 08:05 Dose: 400 mg Documented by: Metoclopramide HCl (Metoclopramide 10 Mg/2 Ml Vial) 10 mg IV Q6 PRN PRN Reason: nausea] Morphine Sulfate (Morphine 2 Mg/Ml Vial) 1 - 4 mg IV Q3HP PRN; Protocol PRN Reason: Per Pain Protocol Last Admin: 06/03/21 20:33 Dose: 4 mg Documented by: Nystatin (Nystatin 500,000 Units/5 Ml Oral.Susp) 500,[address] [facility] Last Admin: 06/07/21 08:14 Dose: Not Given Documented by: Ondansetron HCl (Ondansetron 4 Mg/2 Ml Vial) 4 mg IV Q4-6HP PRN PRN Reason: Nausea And Vomiting Last Admin: 06/06/21 11:11 Dose: 4 mg Documented by: Polyethylene Glycol (Polyethylene Glycol 3350 17 Gm Packet) 17 gm PO DAILYP PRN PRN Reason: Constipation Last Admin: 06/05/21 14:50 Dose: 17 gm Documented by: Potassium/Phosphorus/Sodium (Neutra Phos 1 Packet) [address] [facility] Last Admin: 06/07/21 08:04 Dose: 2 packet Documented by: Pregabalin (Pregabalin 100 Mg Capsule) [address] [facility] Last Admin: 06/07/21 08:11 Dose: 100 mg Documented by: Promethazine HCl (Promethazine 25 Mg Tablet) 25 mg PO Q4-6HP PRN PRN Reason: Nausea Sodium Chloride (0.9 % Sodium Chloride 10 Ml Syringe) [address] [facility] Last Admin: 06/07/21 05:53 Dose: 10 ml Documented by: ABG Interpretation ABG results: 06/01/21 08:30 ABG Methemoglobin 0.3 L VBG pH 7.41 VBG pCO2 36.2 L VBG pO2 71.0 H VBG HCO3 22.5 L VBG Total CO2 23.6 L VBG O2 Saturation 89.8 H VBG Base Excess -2 A/P Assessment and plan (1) DKA, type 2: Status: Acute (2) Short bowel syndrome: Status: Acute (3) Pneumonia due to COVID-19 virus: Status: Acute (4) Malnutrition: Status: Acute (5) GERD (gastroesophageal reflux disease): Status: Acute (6) Aspiration pneumonia: Status: Acute (7) Dysphagia: Status: Acute (8) Anemia, normocytic normochromic: Status: Acute Narrative A/P Narrative: Assessment and Plans: 1. DKA: Resolved, now with overnight hypoglycemia episodes HgA1c 11.9 Insulin Lantus 5 unit HS Low dose SSI AC HS Dysphagia 6 diabetic diet Accu Chek AC HS Hypoglycemia protocol 2. Dysphagia with short bowel syndrome: SLT evaluation-->Dysphagia 6 diabetic diet Megace Insure supplement 3. Abdominal pain, chronic: KUB negative Continue stool softener [place] PRN moderate pain If symptoms persists, will consider CT abdomen w/o 4. GERD: Continue PEPCID 5. Anemia, normocytic normochromic: cbc w/ auto diff in the AM to trend H/H; transfuse pRBC if hemoglobin <7.0, active bleeding, or symptomatic 6. CoVID pneumonia: Supplemental oxygen titrate to achieve spo2>=92%, currently at 1L/min oxygen Finishing Dexamethasone, will stop now Lovenox Hold Remdesivir due to elevated LFTs Isolation protocol: airborne and contact 7. Aspiration pneumonia associated with dysphagia: Supplemental oxygen titrate to achieve spo2>=92%, currently at 1L/min oxygen Rocephin Zithromax 8. Essential HTN: Lisinopril 40mg PO daily Amlodipine Hydralazine 10mg IV q4hr PRN SBP>=180mmHg and/or DBP>=110mmHg GI ppx: PEPCID DVT ppx: Lovenox Code status: Full Prognosis: Stable Disposition: Inpatient PCU Time Spent With Patient Time: Total time spent is greater than 50% in coordination of care (as documented) at patient's floor/unit and/or counseling patient: Total time spent with greater than 50% in coordination of care (as documented) at patient's floor/unit and/or counseling patient:: Greater than 35 minutes QUALITY VTE Deep Vein Thrombosis/Pulmonary Embolism Present on Admission: No
[2021-06-07] MEDS ORDERED: NICOTINE 21 MG PATCH TOPICAL SCH (10:00)
[2021-06-07] MEDS: AMITRIPTYLINE 25 MG TABLET PO SCH (20:43)
[2021-06-07] MEDS: FAMOTIDINE/PF 20 MG/2 ML VIAL IV SCH (20:44)
[2021-06-07] MEDS: INSULIN GLARGINE, HUMAN 1 UNIT/0.01 ML SQ SCH (20:45)
[2021-06-08] MEDS: 0.9 % SODIUM CHLORIDE 10 ML SYRINGE IV SCH ×3 (06:11→20:51)
[2021-06-08] MEDS: LIPASE/PROTEASE/AMYLASE 1 CAP CAPSULE PO SCH ×4 (07:16→20:48)
[2021-06-08 07:23] LABS: Basophils # (Auto) 0.02 K/mcL (0.00-0.30); Basophils % (Auto) 0.2 % (0.0-2.0); Eosinophils # (Auto) 0.06 K/mcL (0.00-0.70); Eosinophils % (Auto) 0.5 % (0.0-7.0); Hematocrit 31.5 % (40.1-51.0); Hemoglobin 11.5 g/dL (13.7-17.5); Lymphocytes # (Auto) 4.17 K/mcL (1.50-4.80); Mean Cell Volume 92.4 fL (80.0-100.0); Mean Corpuscular HGB Conc 36.5 g/dL (31.0-36.0); Mean Platelet Volume 11.1 fL (7.4-10.4); Monocytes # (Auto) 1.66 K/mcL (0.10-0.90); Neutrophils % (Auto) 46.6 % (38.0-78.0); Platelet Count 519 K/mcL (140-440); RBC 3.41 M/mcL (4.63-6.08); Red Cell Distribution Width 13.5 % (11.5-14.5); WBC 11.1 K/mcL (4.5-11.0)
[2021-06-08 07:27] LABS: ALT/SGPT 19 U/L (<40); AST/SGOT 15 U/L (<40); Albumin 2.6 gm/dL (3.2-5.2); Albumin/Globulin Ratio 0.7 (1.0-2.3); Alkaline Phosphatase 250 U/L (39-117); Bilirubin,Total 0.4 mg/dL (0.1-1.0); Blood Urea Nitrogen 15 mg/dL (6-20); Calcium 8.8 mg/dL (8.6-10.4); Carbon Dioxide 27 mmol/L (22-30); Chloride 89 mmol/L (96-108); Globulin 3.8 gm/dL (2.2-3.7); Glomerular Filtration Rate 84; Glucose 133 mg/dL (70-105)
[2021-06-08] MEDS: cefTRIAXone 2 GM in DEXTROSE 5% IN WATER 50 ML IV SCH (08:10)
[2021-06-08] MEDS: INSULIN LISPRO 1 UNIT/0.01 ML UNIT SQ SCH ×4 (08:10→20:48)
[2021-06-08] MEDS: NEUTRA PHOS 1 PACKET PO SCH ×3 (08:11→20:50)
[2021-06-08] MEDS: ENOXAPARIN 40 MG/0.4 ML SYRINGE SQ SCH ×2 (08:11→09:08)
[2021-06-08] MEDS: DULoxetine 30 MG CAPSULE PO SCH ×2 (08:11→09:07)
[2021-06-08] MEDS: NYSTATIN 500,000 UNITS/5 ML ORAL.SUSP SSW SCH ×5 (08:11→20:50)
[2021-06-08] MEDS: LISINOPRIL 20 MG TABLET PO SCH ×2 (08:11→09:09)
[2021-06-08] MEDS: amLODIPine 10 MG TABLET PO SCH ×2 (08:11→09:09)
[2021-06-08] MEDS: DOCUSATE SODIUM 100 MG CAPSULE PO SCH ×3 (08:11→20:48)
[2021-06-08] MEDS: PREGABALIN 100 MG CAPSULE PO SCH ×4 (08:11→20:47)
[2021-06-08] MEDS: MEGESTROL ACETATE 400 MG/10 ML ORAL.SUSP PO SCH ×2 (08:12→09:08)
[2021-06-08 08:29] LABS: Lymphocytes % (Auto) 37.7 % (15.5-49.0)
[2021-06-08] MEDS ORDERED: IOPAMIDOL 100 ML BOTTLE IV ONE (08:55)
[2021-06-08] MEDS ORDERED: DEXTROSE 31 GM ORAL.SUSP PO PRN ×3 (08:55)
[2021-06-08] MEDS ORDERED: IPRATROPIUM/ALBUTEROL 3 ML AMPUL.NEB NEB PRN (08:55)
[2021-06-08] MEDS ORDERED: METOCLOPRAMIDE 10 MG/2 ML VIAL IV PRN (08:55)
[2021-06-08] MEDS ORDERED: POLYETHYLENE GLYCOL 3350 17 GM PACKET PO PRN (08:55)
[2021-06-08] MEDS ORDERED: PROMETHAZINE 25 MG TABLET PO PRN (08:55)
[2021-06-08] MEDS ORDERED: LABETALOL 5 MG/ML ML IV PRN (08:55)
[2021-06-08] MEDS ORDERED: ONDANSETRON 4 MG/2 ML VIAL IV PRN (08:55)
[2021-06-08] MEDS ORDERED: DEXTROSE 50% 50 ML VIAL IV PRN ×3 (08:55)
[2021-06-08] MEDS ORDERED: CYCLOBENZAPRINE 10 MG TABLET PO PRN (08:55)
[2021-06-08] MEDS ORDERED: LACTOPEROXI/GLUC OXID/POT THIO 1 EACH GEL..EA. TOPICAL PRN (08:55)
[2021-06-08] MEDS ORDERED: hydrALAZINE 20 MG/ML VIAL IV PRN (08:55)
[2021-06-08] MEDS ORDERED: ACETAMINOPHEN 325 MG TABLET PO PRN (08:55)
[2021-06-08] MEDS ORDERED: morphine 2 MG/ML VIAL IV PRN (08:55)
--- NOTE | 2021-06-08 08:56 | Internal Med Progress Note ---
SUBJECTIVE Subjective Patient information: Note initiated : 06/08/21 at 8:54 am Service Date, if different from initiated Date: [] Patient: John Walker a 55 y/o M admitted on 05/31/21 for Diabetic Ketoacidosis. Chief Complaint: [] Interval history: History of present illness: Mr. Walker is a 55 year old M Presents to the ED in [facility] for generalized weakness and shortness of breath, cough, nausea/vomiting, also complains of abdominal pain abdominal pain. States all the symptoms been going on for about a week. Patient was tested positive for Covid on May 23. Chest x-ray with increased RLL infiltrate and chronic scarring/atelecasis. currently on 3 L NC O2, unknown baseline requirement if any. Patient is cachectic and has a history of dumping syndrome with a history of gastric surgery. He was found to be in DKA with a bicarb of 5 and a pH of 7.13 on VBG. Pseudohyponatremia. Glucose 553. Also hyperkalemic at 6.7, EKG with some peaked T waves and 1 amp of bicarb ordered. Also got calcium gluconate. Lactate within normal limits Vital signs stable. 06/01 Poor sleep last night. DKA improving. On 2 L nasal cannula. 06/02 Laboratory much improved although still has a high white blood cell count. Urine unremarkable. No obvious source of infection. CT abdomen pelvis unremarkable. Will check procalcitonin. Patient currently sleeping no overnight event or new complaints. Awakens to voice but very sleepy. 06/03 Patient feeling much better today. Awake and alert. Liver enzymes jumped quite a bit and will DC remdesivir. Can also be related to possibly hypoxic episode yesterday when he aspirated. 06/04: Been afebrile overnight. Currently on 6L/min oxygen. Episodes of hypoglycemia overnight. Poor appetite, on Pureed moderately thick diet while awaiting SLT evaluation. c/o moderate to severe RLQ abdominal pain. c/o mild-moderate SOB. Denies cough. Denies wheezing. Denies fever chills or sweating. Denies nausea vomiting diarrhea, or constipation. 06/05: Fasting glucose level 68. Poor appetite. Oxygen requirement 8L/min overnight, currently at 6L/min. Poor appetite. c/o mild SOB. c/o productive cough. Denies fever chills or sweating. Denies nausea or vomiting. c/o LLQ abdominal pain. 06/06: Fasting glucose level 134. Good appetite. Ate most food. Oxygen requirement currently at 5L/min. c/o mild SOB. c/o productive cough. Denies fever chills or sweating. Denies nausea or vomiting. c/o chronic lower abdominal pain. 06/07: Afebrile. On 1L/min oxygen. Ate most food, good appetite. Denies SOB. c/o nonproductive cough. Denies fever chills or sweating. Denies nausea or vomiting. c/o chronic lower abdominal pain. ' 06/08: Afebrile and on 1L/min oxygen. Serum sodium 130-->127. Blood glucose fasting 161. Denies cough or sputum production or SOB. Denies fever or chills. Ate most food. Denies nausea vomiting or abdominal pain. Constitutional Vitals: Vital Signs Temp Pulse Resp BP Pulse Ox 37.3 C H 105 H 10 L 146/84 97 06/08/21 04:01 06/08/21 05:48 06/08/21 06:00 06/08/21 06:00 06/08/21 06:00 Period Temp Pulse Resp BP Sys/Camara Pulse Ox Last 24 Hr 36.8 C-37.3 C 105 9-30 103-146/64-90 93-97 Intake and Output 06/07/21 06/08/21 06/08/21 21:59 05:59 13:59 Intake Total 480 480 Output Total 375 1300 Balance 105 -820 Weight 49.396 kg Intake & Output: Intake & Output 06/07/21 06/08/21 06/08/21 21:59 05:59 13:59 Intake Total 480 480 Output Total 375 1300 Balance 105 -820 Weight 49.396 kg Intake: Oral 480 480 Output: Void Amount 375 1300 Other: Meal Dinner Percent of Meal Consumed 100% Feeding Ability Assist with Tray Set Up Urine Appearance Clear Clear Urine Color Bright Yellow Bright Yellow Bright Yellow Urine Odor Normal General appearance: cooperative, disheveled and no acute distress Exam: cachetic Head Head exam: Present atraumatic and normal inspection Eye Eye exam: Present normal appearance ENT ENT exam: Present mucous membranes moist, normal exam and normal external ear exam Additional comments: Nasal cannula in place Neck Neck exam: Present normal inspection Respiratory Respiratory exam: Present normal respiratory exam and rhonchi; Absent wheezes Cardiovascular Cardiovascular exam: Present normal rate and rhythm GI/Abdominal GI/Abdominal exam: Present normal bowel sounds Back Exam Back exam: Present normal inspection Neurological Exam Neurological exam: Present alert and oriented X3 Skin Skin exam: Present intact and warm OBJ DATA Labs CBC & Chem 7: 06/08/21 05:43 06/08/21 05:43 Labs: Abnormal Lab Results 06/08/21 06/08/21 06/07/21 05:43 05:43 06:02 WBC 11.1 H RBC 3.41 L Hgb 11.5 L Hct 31.5 L MCHC 36.5 H Plt Count 519 H MPV 11.1 H [place] % (Auto) 15.0 H [place] # (Auto) 1.66 H Absolute Neutrophils Sodium 127 L 130 L Chloride 89 L 91 L Glucose 133 H Alkaline Phosphatase 250 H 286 H Albumin 2.6 L 2.6 L Globulin 3.8 H 3.8 H Albumin/Globulin Ratio 0.7 L 0.7 L 25-OH Vitamin D Total 06/07/21 06/06/21 06/06/21 06:02 10:16 09:10 WBC 13.9 H 15.2 H RBC 3.68 L 3.68 L Hgb 11.5 L 12.4 L Hct 34.2 L 34.9 L MCHC Plt Count 538 H 489 H MPV 11.4 H 11.2 H [place] % (Auto) [place] # (Auto) 1.67 H 1.38 H Absolute Neutrophils 8.46 H 10.28 H Sodium 130 L Chloride 91 L Glucose 342 H Alkaline Phosphatase 314 H Albumin 2.5 L Globulin 3.9 H Albumin/Globulin Ratio 0.6 L 25-OH Vitamin D Total 06/05/21 11:55 WBC RBC Hgb Hct MCHC Plt Count MPV [place] % (Auto) [place] # (Auto) Absolute Neutrophils Sodium Chloride Glucose Alkaline Phosphatase Albumin Globulin Albumin/Globulin Ratio 25-OH Vitamin D Total 28.38 L Meds: Medications Acetaminophen (Acetaminophen 325 Mg Tablet) 650 mg PO Q4-6HP PRN; Protocol PRN Reason: Per Pain Protocol/Fever > 101 Hydrocodone Bitart/Acetaminophen (Hydrocodone/Apap 7.5/325mg Tablet) 1 tab PO Q6HP PRN; Protocol PRN Reason: Per Pain Protocol Last Admin: 06/06/21 20:45 Dose: 1 tab Documented by: Albuterol/Ipratropium (Ipratropium/Albuterol 3 Ml Ampul.Neb) 3 ml NEB Q4HRT PRN PRN Reason: sob Last Admin: 06/02/21 12:24 Dose: 3 ml Documented by: Amitriptyline HCl (Amitriptyline 25 Mg Tablet) 25 mg PO HS [facility] Last Admin: 06/07/21 20:43 Dose: 25 mg Documented by: Amlodipine Besylate (Amlodipine 10 Mg Tablet) 10 mg PO DAILY [facility] Last Admin: 06/08/21 08:11 Dose: 10 mg Documented by: Lipase/Protease/Amylase (Lipase/Protease/Amylase 1 Cap Capsule) 3 cap PO [facility]S [facility] Last Admin: 06/08/21 07:16 Dose: 3 cap Documented by: Cyclobenzaprine HCl (Cyclobenzaprine 10 Mg Tablet) 10 mg PO TIDP PRN PRN Reason: Muscle Spasm Last Admin: 06/06/21 23:23 Dose: 10 mg Documented by: Dextrose (Dextrose 50% 50 Ml Vial) 0 ml IV UD PRN PRN Reason: Hypoglycemia Last Admin: 06/05/21 07:12 Dose: 25 ml Documented by: Dextrose (Dextrose 50% 50 Ml Vial) 0 ml IV UD PRN PRN Reason: Hypoglycemia Dextrose (Dextrose 50% 50 Ml Vial) 0 ml IV UD PRN PRN Reason: Hypoglycemia Diagnostic Test (Pha) (Accu-Chek 1 Each Strip) 1 each FS [facility] Last Admin: 06/08/21 07:29 Dose: 1 each Documented by: Docusate Sodium (Docusate Sodium 100 Mg Capsule) 100 mg PO BID [facility] Last Admin: 06/08/21 08:11 Dose: 100 mg Documented by: Duloxetine HCl (Duloxetine 30 Mg Capsule) 60 mg PO DAILY [facility] Last Admin: 06/08/21 08:11 Dose: 60 mg Documented by: Enalaprilat (Enalaprilat 1.25 Mg/Ml Vial) 0 mg IV Q2HP PRN PRN Reason: Hypertension Last Admin: 06/04/21 22:35 Dose: 1.25 mg Documented by: Enoxaparin Sodium (Enoxaparin 40 Mg/0.4 Ml Syringe) 40 mg SQ DAILY [facility] Last Admin: 06/08/21 08:11 Dose: 40 mg Documented by: Famotidine (Famotidine/Pf 20 Mg/2 Ml Vial) 20 mg IV [facility] Last Admin: 06/07/21 20:44 Dose: 20 mg Documented by: Fentanyl (Fentanyl 25 Mcg Patch) 25 mcg TOPICAL Q72H [facility] Last Admin: 06/07/21 08:11 Dose: 25 mcg Documented by: Glucose (Dextrose 31 Gm Oral.Susp) 15 gm PO PRN PRN PRN Reason: Hypoglycemia Glucose (Dextrose 31 Gm Oral.Susp) 15 gm PO PRN PRN PRN Reason: Hypoglycemia Glucose (Dextrose 31 Gm Oral.Susp) 15 gm PO PRN PRN PRN Reason: Hypoglycemia Glucose Oxid/Lactoperoxid/Muramidas (Lactoperoxi/Gluc Oxid/Pot Thio 1 Each Gel..Ea.) 1 each TOPICAL PRN PRN PRN Reason: Dry Mouth Hydralazine HCl (Hydralazine 20 Mg/Ml Vial) 10 mg IV Q4-6HP PRN PRN Reason: Hypertension Ceftriaxone Sodium 2 gm/ (Dextrose) 50 mls @ 100 mls/hr IV DAILY@0800 [facility]; Protocol Last Admin: 06/08/21 08:10 Dose: 100 mls/hr Documented by: Sodium Chloride (Sodium Chloride 0.9%) 1,000 mls @ 100 mls/hr IV .Q10H [facility] Insulin Glargine (Insulin Glargine, Human 1 Unit/0.01 Ml) 5 unit SQ [facility] Last Admin: 06/07/21 20:45 Dose: 5 units Documented by: Insulin Human Lispro (Insulin Lispro 1 Unit/0.01 Ml Unit) 0 unit SQ [facility]; Protocol Last Admin: 06/08/21 08:10 Dose: 2 unit Documented by: Labetalol HCl (Labetalol 5 Mg/Ml Ml) 0 mg IV Q2HP PRN PRN Reason: Hypertension Last Admin: 06/07/21 06:09 Dose: 10 mg Documented by: Lisinopril (Lisinopril 20 Mg Tablet) 40 mg PO DAILY [facility] Last Admin: 06/08/21 08:11 Dose: 40 mg Documented by: Megestrol Acetate (Megestrol Acetate 400 Mg/10 Ml Oral.Susp) 400 mg PO DAILY [facility] Last Admin: 06/08/21 08:12 Dose: 400 mg Documented by: Metoclopramide HCl (Metoclopramide 10 Mg/2 Ml Vial) 10 mg IV Q6 PRN PRN Reason: nausea] Morphine Sulfate (Morphine 2 Mg/Ml Vial) 1 - 4 mg IV Q3HP PRN; Protocol PRN Reason: Per Pain Protocol Last Admin: 06/03/21 20:33 Dose: 4 mg Documented by: Nicotine (Nicotine 21 Mg Patch) 21 mg TOPICAL DAILY@1000 [facility] Last Admin: 06/07/21 12:16 Dose: 21 mg Documented by: Nystatin (Nystatin 500,000 Units/5 Ml Oral.Susp) 500,000 units SSW QID [facility] Last Admin: 06/08/21 08:11 Dose: Not Given Documented by: Ondansetron HCl (Ondansetron 4 Mg/2 Ml Vial) 4 mg IV Q4-6HP PRN PRN Reason: Nausea And Vomiting Last Admin: 06/06/21 11:11 Dose: 4 mg Documented by: Polyethylene Glycol (Polyethylene Glycol 3350 17 Gm Packet) 17 gm PO DAILYP PRN PRN Reason: Constipation Last Admin: 06/05/21 14:50 Dose: 17 gm Documented by: Potassium/Phosphorus/Sodium (Neutra Phos 1 Packet) 2 packet PO BID [facility] Last Admin: 06/08/21 08:11 Dose: 2 packet Documented by: Pregabalin (Pregabalin 100 Mg Capsule) 100 mg PO TID [facility] Last Admin: 06/08/21 08:11 Dose: 100 mg Documented by: Promethazine HCl (Promethazine 25 Mg Tablet) 25 mg PO Q4-6HP PRN PRN Reason: Nausea Sodium Chloride (0.9 % Sodium Chloride 10 Ml Syringe) 10 ml IV Q8 [facility] Last Admin: 06/08/21 06:11 Dose: 10 ml Documented by: ABG Interpretation ABG results: 06/01/21 08:30 ABG Methemoglobin 0.3 L VBG pH 7.41 VBG pCO2 36.2 L VBG pO2 71.0 H VBG HCO3 22.5 L VBG Total CO2 23.6 L VBG O2 Saturation 89.8 H VBG Base Excess -2 A/P Assessment and plan (1) DKA, type 2: Status: Acute (2) Short bowel syndrome: Status: Acute (3) Pneumonia due to COVID-19 virus: Status: Acute (4) Malnutrition: Status: Acute (5) GERD (gastroesophageal reflux disease): Status: Acute (6) Aspiration pneumonia: Status: Acute (7) Dysphagia: Status: Acute (8) Anemia, normocytic normochromic: Status: Acute (9) Hyponatremia: Status: Acute Narrative A/P Narrative: Assessment and Plans: 1. DKA: Resolved, now with overnight hypoglycemia episodes HgA1c 11.9 Insulin Lantus 5 unit HS Low dose SSI AC HS Dysphagia 6 diabetic diet Accu Chek AC HS Hypoglycemia protocol 2. Dysphagia with short bowel syndrome: SLT evaluation-->Dysphagia 6 diabetic diet Megace Insure supplement 3. Abdominal pain, chronic: KUB negative Continue stool softener [place] PRN moderate pain If symptoms persists, will consider CT abdomen w/o 4. GERD: Continue PEPCID 5. Anemia, normocytic normochromic: cbc w/ auto diff in the AM to trend H/H; transfuse pRBC if hemoglobin <7.0, active bleeding, or symptomatic 6. CoVID pneumonia: Supplemental oxygen titrate to achieve spo2>=92%, currently at 1L/min oxygen Finishing Dexamethasone, will stop now Lovenox Hold Remdesivir due to elevated LFTs Isolation protocol: airborne and contact 7. Aspiration pneumonia associated with dysphagia: Supplemental oxygen titrate to achieve spo2>=92%, currently at 1L/min oxygen Rocephin Zithromax 8. Essential HTN: Lisinopril 40mg PO daily Amlodipine Hydralazine 10mg IV q4hr PRN SBP>=180mmHg and/or DBP>=110mmHg 9. Acute hyponatremia: NS@100cc/hr Since it is acute onset, no need to trend serum sodium every 4-6 hr to monitor rate of correction; instead, will just check with daily morning labs GI ppx: PEPCID DVT ppx: Lovenox Code status: Full Prognosis: Stable Disposition: Transfer to inpatient med surg Time Spent With Patient Time: Total time spent is greater than 50% in coordination of care (as documented) at patient's floor/unit and/or counseling patient: Total time spent with greater than 50% in coordination of care (as documented) at patient's floor/unit and/or counseling patient:: Greater than 35 minutes QUALITY VTE Deep Vein Thrombosis/Pulmonary Embolism Present on Admission: No
[2021-06-08] MEDS ORDERED: 0.9 % SODIUM CHLORIDE 1,000 ML IV SCH (09:00)
[2021-06-08] MEDS: 0.9 % SODIUM CHLORIDE 1,000 ML IV SCH ×2 (09:12→18:31)
[2021-06-08] MEDS: NICOTINE 21 MG PATCH TOPICAL SCH (11:40)
[2021-06-08] MEDS: FAMOTIDINE/PF 20 MG/2 ML VIAL IV SCH (20:47)
[2021-06-08] MEDS: AMITRIPTYLINE 25 MG TABLET PO SCH (20:47)
[2021-06-08] MEDS ORDERED: INSULIN GLARGINE, HUMAN 1 UNIT/0.01 ML SQ SCH (21:00)
[2021-06-09] MEDS: 0.9 % SODIUM CHLORIDE 1,000 ML IV SCH (04:46)
[2021-06-09] MEDS: 0.9 % SODIUM CHLORIDE 10 ML SYRINGE IV SCH ×3 (04:46→21:41)
[2021-06-09 06:59] LABS: Basophils # (Auto) 0.09 K/mcL (0.00-0.30); Basophils % (Auto) 0.8 % (0.0-2.0); Eosinophils # (Auto) 0.25 K/mcL (0.00-0.70); Eosinophils % (Auto) 2.4 % (0.0-7.0); Hematocrit 33.7 % (40.1-51.0); Hemoglobin 11.3 g/dL (13.7-17.5); Lymphocytes % (Auto) 31.1 % (15.5-49.0); Mean Cell Volume 96.3 fL (80.0-100.0); Mean Corpuscular HGB Conc 33.5 g/dL (31.0-36.0); Mean Platelet Volume 10.5 fL (7.4-10.4); Monocytes # (Auto) 1.28 K/mcL (0.10-0.90); Monocytes % (Auto) 12.1 % (1.0-12.0); Neutrophils % (Auto) 53.6 % (38.0-78.0); Platelet Count 540 K/mcL (140-440); Red Cell Distribution Width 13.7 % (11.5-14.5); WBC 10.6 K/mcL (4.5-11.0)
[2021-06-09 08:01] LABS: ALT/SGPT 19 U/L (<40); AST/SGOT 17 U/L (<40); Albumin 2.7 gm/dL (3.2-5.2); Albumin/Globulin Ratio 0.7 (1.0-2.3); Alkaline Phosphatase 237 U/L (39-117); Bilirubin,Total 0.3 mg/dL (0.1-1.0); Blood Urea Nitrogen 16 mg/dL (6-20); Calcium 8.8 mg/dL (8.6-10.4); Carbon Dioxide 24 mmol/L (22-30); Chloride 93 mmol/L (96-108); Globulin 3.8 gm/dL (2.2-3.7); Glomerular Filtration Rate 84; Glucose 291 mg/dL (70-105)
[2021-06-09] MEDS: INSULIN LISPRO 1 UNIT/0.01 ML UNIT SQ SCH ×4 (08:30→21:40)
[2021-06-09] MEDS ORDERED: cefTRIAXone 2 GM VIAL ONE (09:55)
[2021-06-09] MEDS: NICOTINE 21 MG PATCH TOPICAL SCH ×2 (09:56→23:59)
[2021-06-09] MEDS: LIPASE/PROTEASE/AMYLASE 1 CAP CAPSULE PO SCH ×4 (09:57→21:36)
[2021-06-09] MEDS: cefTRIAXone 2 GM in DEXTROSE 5% IN WATER 50 ML IV SCH (09:58)
[2021-06-09] MEDS: PREGABALIN 100 MG CAPSULE PO SCH ×3 (09:58→21:35)
[2021-06-09] MEDS: DOCUSATE SODIUM 100 MG CAPSULE PO SCH ×2 (09:58→20:59)
[2021-06-09] MEDS: NEUTRA PHOS 1 PACKET PO SCH ×2 (09:58→21:38)
[2021-06-09] MEDS: DULoxetine 30 MG CAPSULE PO SCH (09:59)
[2021-06-09] MEDS: LISINOPRIL 20 MG TABLET PO SCH (09:59)
[2021-06-09] MEDS ORDERED: NICOTINE 21 MG PATCH TOPICAL SCH (10:00)
[2021-06-09] MEDS: MEGESTROL ACETATE 400 MG/10 ML ORAL.SUSP PO SCH ×2 (10:00→10:12)
[2021-06-09] MEDS: ENOXAPARIN 40 MG/0.4 ML SYRINGE SQ SCH (10:00)
[2021-06-09] MEDS: amLODIPine 10 MG TABLET PO SCH (10:00)
[2021-06-09] MEDS: NYSTATIN 500,000 UNITS/5 ML ORAL.SUSP SSW SCH ×4 (10:06→21:38)
[2021-06-09] MEDS ORDERED: DEXTROSE 50% 50 ML VIAL IV PRN (11:14)
[2021-06-09] MEDS ORDERED: DEXTROSE 31 GM ORAL.SUSP PO PRN (11:14)
--- NOTE | 2021-06-09 11:17 | Internal Med Progress Note ---
SUBJECTIVE Subjective Patient information: Note initiated : 06/09/21 at 11:14 am Service Date, if different from initiated Date: [] Patient: John Walker a 55 y/o M admitted on 05/31/21 for Diabetic Ketoacidosis. Chief Complaint: [] Interval history: History of present illness: Mr. Walker is a 55 year old M Presents to the ED in [facility] for generalized weakness and shortness of breath, cough, nausea/vomiting, also complains of abdominal pain abdominal pain. States all the symptoms been going on for about a week. Patient was tested positive for Covid on May 23. Chest x-ray with increased RLL infiltrate and chronic scarring/atelecasis. currently on 3 L NC O2, unknown baseline requirement if any. Patient is cachectic and has a history of dumping syndrome with a history of gastric surgery. He was found to be in DKA with a bicarb of 5 and a pH of 7.13 on VBG. Pseudohyponatremia. Glucose 553. Also hyperkalemic at 6.7, EKG with some peaked T waves and 1 amp of bicarb ordered. Also got calcium gluconate. Lactate within normal limits Vital signs stable. 06/01 Poor sleep last night. DKA improving. On 2 L nasal cannula. 06/02 Laboratory much improved although still has a high white blood cell count. Urine unremarkable. No obvious source of infection. CT abdomen pelvis unremarkable. Will check procalcitonin. Patient currently sleeping no overnight event or new complaints. Awakens to voice but very sleepy. 06/03 Patient feeling much better today. Awake and alert. Liver enzymes jumped quite a bit and will DC remdesivir. Can also be related to possibly hypoxic episode yesterday when he aspirated. 06/04: Been afebrile overnight. Currently on 6L/min oxygen. Episodes of hypoglycemia overnight. Poor appetite, on Pureed moderately thick diet while awaiting SLT evaluation. c/o moderate to severe RLQ abdominal pain. c/o mild-moderate SOB. Denies cough. Denies wheezing. Denies fever chills or sweating. Denies nausea vomiting diarrhea, or constipation. 06/05: Fasting glucose level 68. Poor appetite. Oxygen requirement 8L/min overnight, currently at 6L/min. Poor appetite. c/o mild SOB. c/o productive cough. Denies fever chills or sweating. Denies nausea or vomiting. c/o LLQ abdominal pain. 06/06: Fasting glucose level 134. Good appetite. Ate most food. Oxygen requirement currently at 5L/min. c/o mild SOB. c/o productive cough. Denies fever chills or sweating. Denies nausea or vomiting. c/o chronic lower abdominal pain. 06/07: Afebrile. On 1L/min oxygen. Ate most food, good appetite. Denies SOB. c/o nonproductive cough. Denies fever chills or sweating. Denies nausea or vomiting. c/o chronic lower abdominal pain. ' 06/08: Afebrile and on 1L/min oxygen. Serum sodium 130-->127. Blood glucose fasting 161. Denies cough or sputum production or SOB. Denies fever or chills. Ate most food. Denies nausea vomiting or abdominal pain. 06/09: Afebrile overnight. On 1.5L/min oxygen. Serum sodium 127--->130. Fasting glucose 317. Denies cough or sputum production or SOB. Denies fever or chills. Ate most food. Denies nausea vomiting or abdominal pain. Constitutional Vitals: Vital Signs Temp Pulse Resp BP Pulse Ox 36.8 C 84 19 110/60 95 06/09/21 07:13 06/09/21 07:13 06/09/21 07:13 06/09/21 07:13 06/09/21 08:00 Period Temp Pulse Resp BP Sys/Camara Pulse Ox Last 24 Hr 36.6 C-37.2 C 34-97 12-22 106-144/60-81 90-97 Intake and Output 06/08/21 06/09/21 06/09/21 21:59 05:59 13:59 Intake Total 1172 1480 590 Output Total 125 950 Balance 1047 530 590 Weight 51.71 kg Intake & Output: Intake & Output 06/08/21 06/09/21 06/09/21 21:59 05:59 13:59 Intake Total 1172 1480 590 Output Total 125 950 Balance 1047 530 590 Weight 51.71 kg Intake: IV 932 1000 Sodium Chloride 0.9% 1,000 ml @ 932 1000 100 mls/hr IV .Q10H [facility] Rx#: [id number] Oral 240 480 590 Output: Void Amount 125 950 Other: Meal broth and jello Breakfast Percent of Meal Consumed 100% 100% Feeding Ability Independent Urine Appearance Clear Clear Urine Color Dark Yellow Bright Yellow Urine Odor Normal Stool Size Large Moderate Stool Color Brown Brown Stool Consistency Normal for Patient Formed Soft # Voids 1 1 # Bowel Movements 1 1 General appearance: cooperative, disheveled and no acute distress Exam: cachetic Head Head exam: Present atraumatic and normal inspection Eye Eye exam: Present normal appearance ENT ENT exam: Present mucous membranes moist, normal exam and normal external ear exam Additional comments: Nasal cannula in place Neck Neck exam: Present normal inspection Respiratory Respiratory exam: Present normal respiratory exam and rhonchi; Absent wheezes Cardiovascular Cardiovascular exam: Present normal rate and rhythm GI/Abdominal GI/Abdominal exam: Present normal bowel sounds Back Exam Back exam: Present normal inspection Neurological Exam Neurological exam: Present alert and oriented X3 Skin Skin exam: Present intact and warm OBJ DATA Labs CBC & Chem 7: 06/09/21 06:00 06/09/21 06:00 Labs: Abnormal Lab Results 06/09/21 06/09/21 06/08/21 06:00 06:00 05:43 WBC RBC 3.50 L Hgb 11.3 L Hct 33.7 L MCHC Plt Count 540 H MPV 10.5 H Hendry % (Auto) 12.1 H Hendry # (Auto) 1.28 H Absolute Neutrophils Sodium 130 L 127 L Chloride 93 L 89 L Glucose 291 H 133 H Alkaline Phosphatase 237 H 250 H Albumin 2.7 L 2.6 L Globulin 3.8 H 3.8 H Albumin/Globulin Ratio 0.7 L 0.7 L 06/08/21 06/07/21 06/07/21 05:43 06:02 06:02 WBC 11.1 H 13.9 H RBC 3.41 L 3.68 L Hgb 11.5 L 11.5 L Hct 31.5 L 34.2 L MCHC 36.5 H Plt Count 519 H 538 H MPV 11.1 H 11.4 H Hendry % (Auto) 15.0 H Hendry # (Auto) 1.66 H 1.67 H Absolute Neutrophils 8.46 H Sodium 130 L Chloride 91 L Glucose Alkaline Phosphatase 286 H Albumin 2.6 L Globulin 3.8 H Albumin/Globulin Ratio 0.7 L 06/06/21 10:16 WBC RBC Hgb Hct MCHC Plt Count MPV Hendry % (Auto) Hendry # (Auto) Absolute Neutrophils Sodium 130 L Chloride 91 L Glucose 342 H Alkaline Phosphatase 314 H Albumin 2.5 L Globulin 3.9 H Albumin/Globulin Ratio 0.6 L Meds: Medications Acetaminophen (Acetaminophen 325 Mg Tablet) 650 mg PO Q4-6HP PRN; Protocol PRN Reason: Per Pain Protocol/Fever > 101 Hydrocodone Bitart/Acetaminophen (Hydrocodone/Apap 7.5/325mg Tablet) 1 tab PO Q6HP PRN; Protocol PRN Reason: Per Pain Protocol Albuterol/Ipratropium (Ipratropium/Albuterol 3 Ml Ampul.Neb) 3 ml NEB Q4HRT PRN PRN Reason: sob Amitriptyline HCl (Amitriptyline 25 Mg Tablet) 25 mg PO HS [facility] Last Admin: 06/08/21 20:47 Dose: 25 mg Documented by: Amlodipine Besylate (Amlodipine 10 Mg Tablet) 10 mg PO DAILY [facility] Last Admin: 06/09/21 10:00 Dose: 10 mg Documented by: Lipase/Protease/Amylase (Lipase/Protease/Amylase 1 Cap Capsule) 3 cap PO CCHS [facility] Last Admin: 06/09/21 09:57 Dose: 3 cap Documented by: Cyclobenzaprine HCl (Cyclobenzaprine 10 Mg Tablet) 10 mg PO TIDP PRN PRN Reason: Muscle Spasm Dextrose (Dextrose 50% 50 Ml Vial) 0 ml IV UD PRN PRN Reason: Hypoglycemia Diagnostic Test (Pha) (Accu-Chek 1 Each Strip) 1 each FS ACHS [facility] Last Admin: 06/09/21 07:48 Dose: 1 each Documented by: Docusate Sodium (Docusate Sodium 100 Mg Capsule) 100 mg PO BID [facility] Last Admin: 06/09/21 09:58 Dose: Not Given Documented by: Duloxetine HCl (Duloxetine 30 Mg Capsule) 60 mg PO DAILY [facility] Last Admin: 06/09/21 09:59 Dose: 60 mg Documented by: Enoxaparin Sodium (Enoxaparin 40 Mg/0.4 Ml Syringe) 40 mg SQ DAILY [facility] Last Admin: 06/09/21 10:00 Dose: 40 mg Documented by: Famotidine (Famotidine/Pf 20 Mg/2 Ml Vial) 20 mg IV HS [facility] Last Admin: 06/08/21 20:47 Dose: 20 mg Documented by: Fentanyl (Fentanyl 25 Mcg Patch) 25 mcg TOPICAL Q72H [facility] Glucose (Dextrose 31 Gm Oral.Susp) 15 gm PO PRN PRN PRN Reason: Hypoglycemia Glucose Oxid/Lactoperoxid/Muramidas (Lactoperoxi/Gluc Oxid/Pot Thio 1 Each Gel..Ea.) 1 each TOPICAL PRN PRN PRN Reason: Dry Mouth Hydralazine HCl (Hydralazine 20 Mg/Ml Vial) 10 mg IV Q4-6HP PRN PRN Reason: Hypertension Ceftriaxone Sodium 2 gm/ (Dextrose) 50 mls @ 100 mls/hr IV DAILY@0800 [facility]; Protocol Last Admin: 06/09/21 09:58 Dose: 100 mls/hr Documented by: Insulin Glargine (Insulin Glargine, Human 1 Unit/0.01 Ml) 10 unit SQ HS [facility] Labetalol HCl (Labetalol 5 Mg/Ml Ml) 0 mg IV Q2HP PRN PRN Reason: Hypertension Lisinopril (Lisinopril 20 Mg Tablet) 40 mg PO DAILY [facility] Last Admin: 06/09/21 09:59 Dose: 40 mg Documented by: Megestrol Acetate (Megestrol Acetate 400 Mg/10 Ml Oral.Susp) 400 mg PO DAILY [facility] Last Admin: 06/09/21 10:12 Dose: Not Given Documented by: Metoclopramide HCl (Metoclopramide 10 Mg/2 Ml Vial) 10 mg IV Q6 PRN PRN Reason: nausea] Morphine Sulfate (Morphine 2 Mg/Ml Vial) 1 - 4 mg IV Q3HP PRN; Protocol PRN Reason: Per Pain Protocol Nicotine (Nicotine 21 Mg Patch) 21 mg TOPICAL DAILY@1000 [facility] Last Admin: 06/09/21 09:56 Dose: 21 mg Documented by: Nystatin (Nystatin 500,000 Units/5 Ml Oral.Susp) 500,000 units SSW QID [facility] Last Admin: 06/09/21 10:06 Dose: Not Given Documented by: Ondansetron HCl (Ondansetron 4 Mg/2 Ml Vial) 4 mg IV Q4-6HP PRN PRN Reason: Nausea And Vomiting Polyethylene Glycol (Polyethylene Glycol 3350 17 Gm Packet) 17 gm PO DAILYP PRN PRN Reason: Constipation Potassium/Phosphorus/Sodium (Neutra Phos 1 Packet) 2 packet PO BID [facility] Last Admin: 06/09/21 09:58 Dose: 2 packet Documented by: Pregabalin (Pregabalin 100 Mg Capsule) 100 mg PO TID [facility] Last Admin: 06/09/21 09:58 Dose: 100 mg Documented by: Promethazine HCl (Promethazine 25 Mg Tablet) 25 mg PO Q4-6HP PRN PRN Reason: Nausea Sodium Chloride (0.9 % Sodium Chloride 10 Ml Syringe) 10 ml IV Q8 [facility] Last Admin: 06/09/21 04:46 Dose: Not Given Documented by: ABG Interpretation ABG results: 06/01/21 08:30 ABG Methemoglobin 0.3 L VBG pH 7.41 VBG pCO2 36.2 L VBG pO2 71.0 H VBG HCO3 22.5 L VBG Total CO2 23.6 L VBG O2 Saturation 89.8 H VBG Base Excess -2 A/P Assessment and plan (1) DKA, type 2: Status: Acute (2) Short bowel syndrome: Status: Acute (3) Pneumonia due to COVID-19 virus: Status: Acute (4) Malnutrition: Status: Acute (5) GERD (gastroesophageal reflux disease): Status: Acute (6) Aspiration pneumonia: Status: Acute (7) Dysphagia: Status: Acute (8) Anemia, normocytic normochromic: Status: Acute (9) Hyponatremia: Status: Acute Narrative A/P Narrative: Assessment and Plans: 1. DKA: Resolved, now with overnight hypoglycemia episodes HgA1c 11.9 Insulin Lantus 5-->10 unit HS for better glycemic coverage High dose SSI AC HS for better glycemic coverage Dysphagia 6 diabetic diet Accu Chek AC HS Hypoglycemia protocol 2. Dysphagia with short bowel syndrome: SLT evaluation-->Dysphagia 6 diabetic diet Megace Insure supplement 3. Abdominal pain, chronic: KUB negative Continue stool softener Meridian PRN moderate pain If symptoms persists, will consider CT abdomen w/o 4. GERD: Continue PEPCID 5. Anemia, normocytic normochromic: cbc w/ auto diff in the AM to trend H/H; transfuse pRBC if hemoglobin <7.0, active bleeding, or symptomatic 6. CoVID pneumonia: Supplemental oxygen titrate to achieve spo2>=92%, currently at 1.5L/min oxygen Finishing Dexamethasone, will stop now Lovenox Hold Remdesivir due to elevated LFTs Isolation protocol: airborne and contact 7. Aspiration pneumonia associated with dysphagia: Supplemental oxygen titrate to achieve spo2>=92%, currently at 1.5L/min oxygen Rocephin Zithromax 8. Essential HTN: Lisinopril 40mg PO daily Amlodipine Hydralazine 10mg IV q4hr PRN SBP>=180mmHg and/or DBP>=110mmHg 9. Acute hyponatremia: Serum sodium 127-->130 Saline lock CMP in the morning to trend serum sodium level GI ppx: PEPCID DVT ppx: Lovenox Code status: Full Prognosis: Stable Disposition: inpatient med surg Time Spent With Patient Time: Total time spent is greater than 50% in coordination of care (as documented) at patient's floor/unit and/or counseling patient: Total time spent with greater than 50% in coordination of care (as documented) at patient's floor/unit and/or counseling patient:: Greater than 35 minutes QUALITY VTE Deep Vein Thrombosis/Pulmonary Embolism Present on Admission: No
[2021-06-09] MEDS: HYDROCODONE/APAP 7.5/325MG TABLET PO PRN (17:49)
[2021-06-09] MEDS ORDERED: INSULIN GLARGINE, HUMAN 1 UNIT/0.01 ML SQ SCH (21:00)
[2021-06-09] MEDS: FAMOTIDINE/PF 20 MG/2 ML VIAL IV SCH (21:35)
[2021-06-09] MEDS: AMITRIPTYLINE 25 MG TABLET PO SCH (21:35)
[2021-06-10] MEDS: 0.9 % SODIUM CHLORIDE 10 ML SYRINGE IV SCH ×3 (05:14→21:04)
[2021-06-10] MEDS: INSULIN LISPRO 1 UNIT/0.01 ML UNIT SQ SCH ×4 (06:33→21:03)
[2021-06-10 07:43] LABS: Basophils # (Auto) 0.07 K/mcL (0.00-0.30); Basophils % (Auto) 0.7 % (0.0-2.0); Eosinophils # (Auto) 0.25 K/mcL (0.00-0.70); Eosinophils % (Auto) 2.5 % (0.0-7.0); Hematocrit 34.7 % (40.1-51.0); Hemoglobin 11.7 g/dL (13.7-17.5); Lymphocytes # (Auto) 3.11 K/mcL (1.50-4.80); Lymphocytes % (Auto) 30.6 % (15.5-49.0); Mean Cell Volume 92.5 fL (80.0-100.0); Mean Corpuscular HGB Conc 33.7 g/dL (31.0-36.0); Mean Platelet Volume 10.5 fL (7.4-10.4); Monocytes # (Auto) 1.11 K/mcL (0.10-0.90); Monocytes % (Auto) 10.9 % (1.0-12.0); Neutrophils % (Auto) 55.3 % (38.0-78.0); Platelet Count 532 K/mcL (140-440); RBC 3.75 M/mcL (4.63-6.08); Red Cell Distribution Width 13.4 % (11.5-14.5); WBC 10.2 K/mcL (4.5-11.0)
[2021-06-10 07:51] LABS: ALT/SGPT 42 U/L (<40); AST/SGOT 39 U/L (<40); Albumin 2.8 gm/dL (3.2-5.2); Albumin/Globulin Ratio 0.7 (1.0-2.3); Alkaline Phosphatase 278 U/L (39-117); Bilirubin,Total 0.3 mg/dL (0.1-1.0); Blood Urea Nitrogen 17 mg/dL (6-20); Calcium 8.9 mg/dL (8.6-10.4); Carbon Dioxide 25 mmol/L (22-30); Chloride 96 mmol/L (96-108); Globulin 3.8 gm/dL (2.2-3.7); Glomerular Filtration Rate 96; Glucose 41 mg/dL (70-105)
[2021-06-10] MEDS ORDERED: fentaNYL 25 MCG PATCH TOPICAL SCH (09:00)
[2021-06-10] MEDS: LIPASE/PROTEASE/AMYLASE 1 CAP CAPSULE PO SCH ×4 (09:08→21:02)
[2021-06-10] MEDS: LISINOPRIL 20 MG TABLET PO SCH (09:09)
[2021-06-10] MEDS: NEUTRA PHOS 1 PACKET PO SCH ×2 (09:10→21:04)
[2021-06-10] MEDS: ENOXAPARIN 40 MG/0.4 ML SYRINGE SQ SCH (09:10)
[2021-06-10] MEDS: HYDROCODONE/APAP 7.5/325MG TABLET PO PRN (09:10)
[2021-06-10] MEDS: PREGABALIN 100 MG CAPSULE PO SCH ×3 (09:10→21:02)
[2021-06-10] MEDS: DULoxetine 30 MG CAPSULE PO SCH (09:11)
[2021-06-10] MEDS: amLODIPine 10 MG TABLET PO SCH (09:11)
[2021-06-10] MEDS: MEGESTROL ACETATE 400 MG/10 ML ORAL.SUSP PO SCH (09:11)
[2021-06-10] MEDS: DOCUSATE SODIUM 100 MG CAPSULE PO SCH ×2 (09:12→20:48)
[2021-06-10] MEDS: NICOTINE 21 MG PATCH TOPICAL SCH (09:13)
[2021-06-10] MEDS: NYSTATIN 500,000 UNITS/5 ML ORAL.SUSP SSW SCH ×4 (09:13→20:49)
[2021-06-10] MEDS: cefTRIAXone 2 GM in DEXTROSE 5% IN WATER 50 ML IV SCH (09:16)
--- NOTE | 2021-06-10 10:38 | Internal Med Progress Note ---
SUBJECTIVE Subjective Patient information: Note initiated : 06/10/21 at 10:37 am Service Date, if different from initiated Date: [] Patient: John Walker a 55 y/o M admitted on 05/31/21 for Diabetic Ketoacidosis. Chief Complaint: [] Interval history: History of present illness: Mr. Walker is a 55 year old M Presents to the ED in [facility] for generalized weakness and shortness of breath, cough, nausea/vomiting, also complains of abdominal pain abdominal pain. States all the symptoms been going on for about a week. Patient was tested positive for Covid on May 23. Chest x-ray with increased RLL infiltrate and chronic scarring/atelecasis. currently on 3 L NC O2, unknown baseline requirement if any. Patient is cachectic and has a history of dumping syndrome with a history of gastric surgery. He was found to be in DKA with a bicarb of 5 and a pH of 7.13 on VBG. Pseudohyponatremia. Glucose 553. Also hyperkalemic at 6.7, EKG with some peaked T waves and 1 amp of bicarb ordered. Also got calcium gluconate. Lactate within normal limits Vital signs stable. 06/01 Poor sleep last night. DKA improving. On 2 L nasal cannula. 06/02 Laboratory much improved although still has a high white blood cell count. Urine unremarkable. No obvious source of infection. CT abdomen pelvis unremarkable. Will check procalcitonin. Patient currently sleeping no overnight event or new complaints. Awakens to voice but very sleepy. 06/03 Patient feeling much better today. Awake and alert. Liver enzymes jumped quite a bit and will DC remdesivir. Can also be related to possibly hypoxic episode yesterday when he aspirated. 06/04: Been afebrile overnight. Currently on 6L/min oxygen. Episodes of hypoglycemia overnight. Poor appetite, on Pureed moderately thick diet while awaiting SLT evaluation. c/o moderate to severe RLQ abdominal pain. c/o mild-moderate SOB. Denies cough. Denies wheezing. Denies fever chills or sweating. Denies nausea vomiting diarrhea, or constipation. 06/05: Fasting glucose level 68. Poor appetite. Oxygen requirement 8L/min overnight, currently at 6L/min. Poor appetite. c/o mild SOB. c/o productive cough. Denies fever chills or sweating. Denies nausea or vomiting. c/o LLQ abdominal pain. 06/06: Fasting glucose level 134. Good appetite. Ate most food. Oxygen requirement currently at 5L/min. c/o mild SOB. c/o productive cough. Denies fever chills or sweating. Denies nausea or vomiting. c/o chronic lower abdominal pain. 06/07: Afebrile. On 1L/min oxygen. Ate most food, good appetite. Denies SOB. c/o nonproductive cough. Denies fever chills or sweating. Denies nausea or vomiting. c/o chronic lower abdominal pain. ' 06/08: Afebrile and on 1L/min oxygen. Serum sodium 130-->127. Blood glucose fasting 161. Denies cough or sputum production or SOB. Denies fever or chills. Ate most food. Denies nausea vomiting or abdominal pain. 06/09: Afebrile overnight. On 1.5L/min oxygen. Serum sodium 127--->130. Fasting glucose 317. Denies cough or sputum production or SOB. Denies fever or chills. Ate most food. Denies nausea vomiting or abdominal pain. 06/10: Afebrile overnight. On 1.5L/min oxygen. Serum sodium 130. Fasting glucose 41. Denies cough or sputum production or SOB. Denies fever or chills. Ate most food. Denies nausea vomiting or abdominal pain. Constitutional Vitals: Vital Signs Temp Pulse Resp BP Pulse Ox 36.3 C 96 H 18 117/81 97 06/10/21 07:00 06/10/21 07:00 06/10/21 07:00 06/10/21 07:00 06/10/21 07:00 Period Temp Pulse Resp BP Sys/Camara Pulse Ox Last 24 Hr 36.2 C-36.8 C 76-98 14-18 94-132/58-82 92-97 Intake and Output 06/09/21 06/10/21 06/10/21 21:59 05:59 13:59 Intake Total 690 480 770 Output Total 346 284 7435 Balance -35 -370 -280 Weight 50.462 kg Intake & Output: Intake & Output 06/09/21 06/10/21 06/10/21 21:59 05:59 13:59 Intake Total 690 480 770 Output Total 598 105 4835 Balance -35 -370 -280 Weight 50.462 kg Intake: IV 50 Rocephin 2 gm In Dextrose 5% in 50 Water 50 ml @ 100 mls/hr IV DAILY@0800 [facility] Rx#:[id number] Oral 690 480 720 Output: Void Amount [id number] Other: Meal Dinner Nourishment/Supplement Breakfast Percent of Meal Consumed 100% 100% 0% Feeding Ability Independent Independent Urine Appearance Clear Clear Clear Urine Color Dark Yellow Bright Yellow Bright Yellow Urine Odor Normal General appearance: cooperative, disheveled and thin Exam: cachetic Head Head exam: Present atraumatic and normal inspection Eye Eye exam: Present normal appearance ENT ENT exam: Present mucous membranes moist, normal exam and normal external ear exam Additional comments: Nasal cannula in place Neck Neck exam: Present normal inspection Respiratory Respiratory exam: Present normal respiratory exam and rhonchi; Absent wheezes Cardiovascular Cardiovascular exam: Present normal rate and rhythm GI/Abdominal GI/Abdominal exam: Present normal bowel sounds Back Exam Back exam: Present normal inspection Neurological Exam Neurological exam: Present alert and oriented X3 Skin Skin exam: Present intact and warm OBJ DATA Labs CBC & Chem 7: 06/10/21 05:36 06/10/21 05:36 Labs: Abnormal Lab Results 06/10/21 06/10/21 06/09/21 05:36 05:36 06:00 WBC RBC 3.75 L Hgb 11.7 L Hct 34.7 L MCHC Plt Count 532 H MPV 10.5 H [place] % (Auto) [place] # (Auto) 1.11 H Sodium 130 L 130 L Chloride 93 L Glucose 41 L 291 H ALT 42 H Alkaline Phosphatase 278 H 237 H Albumin 2.8 L 2.7 L Globulin 3.8 H 3.8 H Albumin/Globulin Ratio 0.7 L 0.7 L 06/09/21 06/08/21 06/08/21 06:00 05:43 05:43 WBC 11.1 H RBC 3.50 L 3.41 L Hgb 11.3 L 11.5 L Hct 33.7 L 31.5 L MCHC 36.5 H Plt Count 540 H 519 H MPV 10.5 H 11.1 H [place] % (Auto) 12.1 H 15.0 H [place] # (Auto) 1.28 H 1.66 H Sodium 127 L Chloride 89 L Glucose 133 H ALT Alkaline Phosphatase 250 H Albumin 2.6 L Globulin 3.8 H Albumin/Globulin Ratio 0.7 L Meds: Medications Acetaminophen (Acetaminophen 325 Mg Tablet) 650 mg PO Q4-6HP PRN; Protocol PRN Reason: Per Pain Protocol/Fever > 101 Hydrocodone Bitart/Acetaminophen (Hydrocodone/Apap 7.5/325mg Tablet) 1 tab PO Q6HP PRN; Protocol PRN Reason: Per Pain Protocol Last Admin: 06/10/21 09:10 Dose: 1 tab Documented by: Albuterol/Ipratropium (Ipratropium/Albuterol 3 Ml Ampul.Neb) 3 ml NEB Q4HRT PRN PRN Reason: sob Amitriptyline HCl (Amitriptyline 25 Mg Tablet) 25 mg PO HS [facility] Last Admin: 06/09/21 21:35 Dose: 25 mg Documented by: Amlodipine Besylate (Amlodipine 10 Mg Tablet) 10 mg PO DAILY [facility] Last Admin: 06/10/21 09:11 Dose: 10 mg Documented by: Lipase/Protease/Amylase (Lipase/Protease/Amylase 1 Cap Capsule) 3 cap PO CCHS [facility] Last Admin: 06/10/21 09:08 Dose: 3 cap Documented by: Cyclobenzaprine HCl (Cyclobenzaprine 10 Mg Tablet) 10 mg PO TIDP PRN PRN Reason: Muscle Spasm Dextrose (Dextrose 50% 50 Ml Vial) 0 ml IV UD PRN PRN Reason: Hypoglycemia Diagnostic Test (Pha) (Accu-Chek 1 Each Strip) 1 each FS ACHS [facility] Last Admin: 06/10/21 06:47 Dose: 1 each Documented by: Diagnostic Test (Pha) (Accu-Chek 1 Each Strip) 1 each FS ACHS [facility] Last Admin: 06/10/21 06:33 Dose: Not Given Documented by: Docusate Sodium (Docusate Sodium 100 Mg Capsule) 100 mg PO BID [facility] Last Admin: 06/10/21 09:12 Dose: Not Given Documented by: Duloxetine HCl (Duloxetine 30 Mg Capsule) 60 mg PO DAILY [facility] Last Admin: 06/10/21 09:11 Dose: 60 mg Documented by: Enoxaparin Sodium (Enoxaparin 40 Mg/0.4 Ml Syringe) 40 mg SQ DAILY [facility] Last Admin: 06/10/21 09:10 Dose: 40 mg Documented by: Famotidine (Famotidine/Pf 20 Mg/2 Ml Vial) 20 mg IV HS [facility] Last Admin: 06/09/21 21:35 Dose: 20 mg Documented by: Fentanyl (Fentanyl 25 Mcg Patch) 25 mcg TOPICAL Q72H [facility] Last Admin: 06/10/21 09:15 Dose: 25 mcg Documented by: Glucose (Dextrose 31 Gm Oral.Susp) 15 gm PO PRN PRN PRN Reason: Hypoglycemia Glucose Oxid/Lactoperoxid/Muramidas (Lactoperoxi/Gluc Oxid/Pot Thio 1 Each Gel..Ea.) 1 each TOPICAL PRN PRN PRN Reason: Dry Mouth Hydralazine HCl (Hydralazine 20 Mg/Ml Vial) 10 mg IV Q4-6HP PRN PRN Reason: Hypertension Insulin Glargine (Insulin Glargine, Human 1 Unit/0.01 Ml) 5 unit SQ [facility] Insulin Human Lispro (Insulin Lispro 1 Unit/0.01 Ml Unit) 0 unit SQ [facility]; Protocol Last Admin: 06/10/21 06:33 Dose: Not Given Documented by: Labetalol HCl (Labetalol 5 Mg/Ml Ml) 0 mg IV Q2HP PRN PRN Reason: Hypertension Lisinopril (Lisinopril 20 Mg Tablet) 40 mg PO DAILY [facility] Last Admin: 06/10/21 09:09 Dose: 40 mg Documented by: Megestrol Acetate (Megestrol Acetate 400 Mg/10 Ml Oral.Susp) 400 mg PO DAILY [facility] Last Admin: 06/10/21 09:11 Dose: Not Given Documented by: Metoclopramide HCl (Metoclopramide 10 Mg/2 Ml Vial) 10 mg IV Q6 PRN PRN Reason: nausea] Morphine Sulfate (Morphine 2 Mg/Ml Vial) 1 - 4 mg IV Q3HP PRN; Protocol PRN Reason: Per Pain Protocol Nicotine (Nicotine 21 Mg Patch) 42 mg TOPICAL DAILY@1000 [facility] Last Admin: 06/10/21 09:13 Dose: 42 mg Documented by: Nystatin (Nystatin 500,000 Units/5 Ml Oral.Susp) 500,000 units SSW QID [facility] Last Admin: 06/10/21 09:13 Dose: Not Given Documented by: Ondansetron HCl (Ondansetron 4 Mg/2 Ml Vial) 4 mg IV Q4-6HP PRN PRN Reason: Nausea And Vomiting Polyethylene Glycol (Polyethylene Glycol 3350 17 Gm Packet) 17 gm PO DAILYP PRN PRN Reason: Constipation Potassium/Phosphorus/Sodium (Neutra Phos 1 Packet) 2 packet PO BID [facility] Last Admin: 06/10/21 09:10 Dose: 2 packet Documented by: Pregabalin (Pregabalin 100 Mg Capsule) 100 mg PO TID [facility] Last Admin: 06/10/21 09:10 Dose: 100 mg Documented by: Promethazine HCl (Promethazine 25 Mg Tablet) 25 mg PO Q4-6HP PRN PRN Reason: Nausea Sodium Chloride (0.9 % Sodium Chloride 10 Ml Syringe) 10 ml IV Q8 [facility] Last Admin: 06/10/21 05:14 Dose: 10 ml Documented by: ABG Interpretation ABG results: 06/01/21 08:30 ABG Methemoglobin 0.3 L VBG pH 7.41 VBG pCO2 36.2 L VBG pO2 71.0 H VBG HCO3 22.5 L VBG Total CO2 23.6 L VBG O2 Saturation 89.8 H VBG Base Excess -2 A/P Assessment and plan (1) DKA, type 2: Status: Acute (2) Short bowel syndrome: Status: Acute (3) Pneumonia due to COVID-19 virus: Status: Acute (4) Malnutrition: Status: Acute (5) GERD (gastroesophageal reflux disease): Status: Acute (6) Aspiration pneumonia: Status: Acute (7) Dysphagia: Status: Acute (8) Anemia, normocytic normochromic: Status: Acute (9) Hyponatremia: Status: Acute Narrative A/P Narrative: Assessment and Plans: 1. DKA: Resolved, now with overnight hypoglycemia episodes HgA1c 11.9 Insulin Lantus 10-->5 unit HS to avoid hypoglycemia Medium dose dose SSI AC HS for better glycemic coverage Dysphagia 6 diabetic diet Accu Chek AC HS Hypoglycemia protocol 2. Dysphagia with short bowel syndrome: SLT evaluation-->Dysphagia 6 diabetic diet Megace Insure supplement 3. Abdominal pain, chronic: KUB negative Continue stool softener [place] PRN moderate pain If symptoms persists, will consider CT abdomen w/o 4. GERD: Continue PEPCID 5. Anemia, normocytic normochromic: cbc w/ auto diff in the AM to trend H/H; transfuse pRBC if hemoglobin <7.0, active bleeding, or symptomatic 6. CoVID pneumonia: Supplemental oxygen titrate to achieve spo2>=92%, currently at 1.5L/min oxygen Finishing Dexamethasone, will stop now Lovenox Hold Remdesivir due to elevated LFTs Isolation protocol: airborne and contact 7. Aspiration pneumonia associated with dysphagia: Supplemental oxygen titrate to achieve spo2>=92%, currently at 1.5L/min oxygen Finished Rocephin Finished Zithromax 8. Essential HTN: Lisinopril 40mg PO daily Amlodipine Hydralazine 10mg IV q4hr PRN SBP>=180mmHg and/or DBP>=110mmHg 9. Acute hyponatremia: Serum sodium 130 Saline lock CMP in the morning to trend serum sodium level GI ppx: PEPCID DVT ppx: Lovenox Code status: Full Prognosis: Stable Disposition: inpatient med surg Time Spent With Patient Time: Total time spent is greater than 50% in coordination of care (as documented) at patient's floor/unit and/or counseling patient: Total time spent with greater than 50% in coordination of care (as documented) at patient's floor/unit and/or counseling patient:: Greater than 35 minutes QUALITY VTE Deep Vein Thrombosis/Pulmonary Embolism Present on Admission: No
[2021-06-10] MEDS ORDERED: DEXTROSE 31 GM ORAL.SUSP PO PRN (10:39)
[2021-06-10] MEDS ORDERED: DEXTROSE 50% 50 ML VIAL IV PRN (10:39)
--- NOTE | 2021-06-10 11:49 | Internal Med Progress Note ---
SUBJECTIVE Subjective Patient information: Note initiated : 06/10/21 at 11:45 am Service Date, if different from initiated Date: [] Patient: John Walker a 55 y/o M admitted on 05/31/21 for Diabetic Ketoacidosis. Chief Complaint: [] Interval history: History of present illness: Mr. Walker is a 55 year old M Presents to the ED in [facility] for generalized weakness and shortness of breath, cough, nausea/vomiting, also complains of abdominal pain abdominal pain. States all the symptoms been going on for about a week. Patient was tested positive for Covid on May 23. Chest x-ray with increased RLL infiltrate and chronic scarring/atelecasis. currently on 3 L NC O2, unknown baseline requirement if any. Patient is cachectic and has a history of dumping syndrome with a history of gastric surgery. He was found to be in DKA with a bicarb of 5 and a pH of 7.13 on VBG. Pseudohyponatremia. Glucose 553. Also hyperkalemic at 6.7, EKG with some peaked T waves and 1 amp of bicarb ordered. Also got calcium gluconate. Lactate within normal limits Vital signs stable. 06/01 Poor sleep last night. DKA improving. On 2 L nasal cannula. 06/02 Laboratory much improved although still has a high white blood cell count. Urine unremarkable. No obvious source of infection. CT abdomen pelvis unremarkable. Will check procalcitonin. Patient currently sleeping no overnight event or new complaints. Awakens to voice but very sleepy. 06/03 Patient feeling much better today. Awake and alert. Liver enzymes jumped quite a bit and will DC remdesivir. Can also be related to possibly hypoxic episode yesterday when he aspirated. 06/04: Been afebrile overnight. Currently on 6L/min oxygen. Episodes of hypoglycemia overnight. Poor appetite, on Pureed moderately thick diet while awaiting SLT evaluation. c/o moderate to severe RLQ abdominal pain. c/o mild-moderate SOB. Denies cough. Denies wheezing. Denies fever chills or sweating. Denies nausea vomiting diarrhea, or constipation. 06/05: Fasting glucose level 68. Poor appetite. Oxygen requirement 8L/min overnight, currently at 6L/min. Poor appetite. c/o mild SOB. c/o productive cough. Denies fever chills or sweating. Denies nausea or vomiting. c/o LLQ abdominal pain. 06/06: Fasting glucose level 134. Good appetite. Ate most food. Oxygen requirement currently at 5L/min. c/o mild SOB. c/o productive cough. Denies fever chills or sweating. Denies nausea or vomiting. c/o chronic lower abdominal pain. 06/07: Afebrile. On 1L/min oxygen. Ate most food, good appetite. Denies SOB. c/o nonproductive cough. Denies fever chills or sweating. Denies nausea or vomiting. c/o chronic lower abdominal pain. ' 06/08: Afebrile and on 1L/min oxygen. Serum sodium 130-->127. Blood glucose fasting 161. Denies cough or sputum production or SOB. Denies fever or chills. Ate most food. Denies nausea vomiting or abdominal pain. 06/09: Afebrile overnight. On 1.5L/min oxygen. Serum sodium 127--->130. Fasting glucose 317. Denies cough or sputum production or SOB. Denies fever or chills. Ate most food. Denies nausea vomiting or abdominal pain. 06/10: Afebrile overnight. On 1.5L/min oxygen. Serum sodium 130. Fasting glucose 41. Denies cough or sputum production or SOB. Denies fever or chills. Ate most food. Denies nausea vomiting or abdominal pain. Review of Systems: denies headache/fever/chills/nausea/vomiting/chest or abdominal pain/diarrhea. Otherwise see above. Constitutional Vitals: Vital Signs Temp Pulse Resp BP Pulse Ox 97.4 F 96 H 18 117/81 97 06/10/21 07:00 06/10/21 07:00 06/10/21 07:00 06/10/21 07:00 06/10/21 07:00 Period Temp Pulse Resp BP Sys/Camara Pulse Ox Last 24 Hr 97.2 F-98.3 F 76-98 14-18 94-132/58-82 92-97 Intake and Output 06/09/21 06/10/21 06/10/21 21:59 05:59 13:59 Intake Total 690 480 770 Output Total 345 072 7493 Balance -35 -370 -280 Weight 50.462 kg Intake & Output: Intake & Output 06/09/21 06/10/21 06/10/21 21:59 05:59 13:59 Intake Total 690 480 770 Output Total 797 841 3419 Balance -35 -370 -280 Weight 50.462 kg Intake: IV 50 Rocephin 2 gm In Dextrose 5% in 50 Water 50 ml @ 100 mls/hr IV DAILY@0800 [facility] Rx#:[id number] Oral 690 480 720 Output: Void Amount [phone] Other: Meal Dinner Nourishment/Supplement Breakfast Percent of Meal Consumed 100% 100% 0% Feeding Ability Independent Independent Urine Appearance Clear Clear Clear Urine Color Dark Yellow Bright Yellow Bright Yellow Urine Odor Normal Exam: General: Awake, no acute Distress, cachectic Eyes/N/T: EOMI, Head/Neck: neck supple, CV: RRR, No murmurs, Pulm: mild rhonchi, nonlabored Abd: soft, chronic abdominal tenderness, +BS x4 Ext: no clubbing/cyanosis/edema Neuro: Alert, no focal deficits, moves all extremities, Skin: warm/dry OBJ DATA Labs CBC & Chem 7: 06/10/21 05:36 06/10/21 05:36 Labs: Abnormal Lab Results 06/10/21 06/10/21 06/09/21 05:36 05:36 06:00 WBC RBC 3.75 L Hgb 11.7 L Hct 34.7 L MCHC Plt Count 532 H MPV 10.5 H [place] % (Auto) [place] # (Auto) 1.11 H Sodium 130 L 130 L Chloride 93 L Glucose 41 L 291 H ALT 42 H Alkaline Phosphatase 278 H 237 H Albumin 2.8 L 2.7 L Globulin 3.8 H 3.8 H Albumin/Globulin Ratio 0.7 L 0.7 L 06/09/21 06/08/21 06/08/21 06:00 05:43 05:43 WBC 11.1 H RBC 3.50 L 3.41 L Hgb 11.3 L 11.5 L Hct 33.7 L 31.5 L MCHC 36.5 H Plt Count 540 H 519 H MPV 10.5 H 11.1 H [place] % (Auto) 12.1 H 15.0 H [place] # (Auto) 1.28 H 1.66 H Sodium 127 L Chloride 89 L Glucose 133 H ALT Alkaline Phosphatase 250 H Albumin 2.6 L Globulin 3.8 H Albumin/Globulin Ratio 0.7 L Meds: Medications Acetaminophen (Acetaminophen 325 Mg Tablet) 650 mg PO Q4-6HP PRN; Protocol PRN Reason: Per Pain Protocol/Fever > 101 Hydrocodone Bitart/Acetaminophen (Hydrocodone/Apap 7.5/325mg Tablet) 1 tab PO Q6HP PRN; Protocol PRN Reason: Per Pain Protocol Last Admin: 06/10/21 09:10 Dose: 1 tab Documented by: Albuterol/Ipratropium (Ipratropium/Albuterol 3 Ml Ampul.Neb) 3 ml NEB Q4HRT PRN PRN Reason: sob Amitriptyline HCl (Amitriptyline 25 Mg Tablet) 25 mg PO HS [facility] Last Admin: 06/09/21 21:35 Dose: 25 mg Documented by: Amlodipine Besylate (Amlodipine 10 Mg Tablet) 10 mg PO DAILY [facility] Last Admin: 06/10/21 09:11 Dose: 10 mg Documented by: Lipase/Protease/Amylase (Lipase/Protease/Amylase 1 Cap Capsule) 3 cap PO CCHS [facility] Last Admin: 06/10/21 09:08 Dose: 3 cap Documented by: Cyclobenzaprine HCl (Cyclobenzaprine 10 Mg Tablet) 10 mg PO TIDP PRN PRN Reason: Muscle Spasm Dextrose (Dextrose 50% 50 Ml Vial) 0 ml IV UD PRN PRN Reason: Hypoglycemia Diagnostic Test (Pha) (Accu-Chek 1 Each Strip) 1 each FS ACHS [facility] Docusate Sodium (Docusate Sodium 100 Mg Capsule) 100 mg PO BID [facility] Last Admin: 06/10/21 09:12 Dose: Not Given Documented by: Duloxetine HCl (Duloxetine 30 Mg Capsule) 60 mg PO DAILY [facility] Last Admin: 06/10/21 09:11 Dose: 60 mg Documented by: Enoxaparin Sodium (Enoxaparin 40 Mg/0.4 Ml Syringe) 40 mg SQ DAILY [facility] Last Admin: 06/10/21 09:10 Dose: 40 mg Documented by: Famotidine (Famotidine/Pf 20 Mg/2 Ml Vial) 20 mg IV HS [facility] Last Admin: 06/09/21 21:35 Dose: 20 mg Documented by: Fentanyl (Fentanyl 25 Mcg Patch) 25 mcg TOPICAL Q72H [facility] Last Admin: 06/10/21 09:15 Dose: 25 mcg Documented by: Glucose (Dextrose 31 Gm Oral.Susp) 15 gm PO PRN PRN PRN Reason: Hypoglycemia Glucose Oxid/Lactoperoxid/Muramidas (Lactoperoxi/Gluc Oxid/Pot Thio 1 Each Gel..Ea.) 1 each TOPICAL PRN PRN PRN Reason: Dry Mouth Hydralazine HCl (Hydralazine 20 Mg/Ml Vial) 10 mg IV Q4-6HP PRN PRN Reason: Hypertension Insulin Glargine (Insulin Glargine, Human 1 Unit/0.01 Ml) 5 unit SQ HS [facility] Insulin Human Lispro (Insulin Lispro 1 Unit/0.01 Ml Unit) 0 unit SQ [facility]; Protocol Labetalol HCl (Labetalol 5 Mg/Ml Ml) 0 mg IV Q2HP PRN PRN Reason: Hypertension Lisinopril (Lisinopril 20 Mg Tablet) 40 mg PO DAILY [facility] Last Admin: 06/10/21 09:09 Dose: 40 mg Documented by: Megestrol Acetate (Megestrol Acetate 400 Mg/10 Ml Oral.Susp) 400 mg PO DAILY [facility] Last Admin: 06/10/21 09:11 Dose: Not Given Documented by: Metoclopramide HCl (Metoclopramide 10 Mg/2 Ml Vial) 10 mg IV Q6 PRN PRN Reason: nausea] Morphine Sulfate (Morphine 2 Mg/Ml Vial) 1 - 4 mg IV Q3HP PRN; Protocol PRN Reason: Per Pain Protocol Nicotine (Nicotine 21 Mg Patch) 42 mg TOPICAL DAILY@1000 [facility] Last Admin: 06/10/21 09:13 Dose: 42 mg Documented by: Nystatin (Nystatin 500,000 Units/5 Ml Oral.Susp) 500,000 units SSW QID [facility] Last Admin: 06/10/21 09:13 Dose: Not Given Documented by: Ondansetron HCl (Ondansetron 4 Mg/2 Ml Vial) 4 mg IV Q4-6HP PRN PRN Reason: Nausea And Vomiting Polyethylene Glycol (Polyethylene Glycol 3350 17 Gm Packet) 17 gm PO DAILYP PRN PRN Reason: Constipation Potassium/Phosphorus/Sodium (Neutra Phos 1 Packet) 2 packet PO BID [facility] Last Admin: 06/10/21 09:10 Dose: 2 packet Documented by: Pregabalin (Pregabalin 100 Mg Capsule) 100 mg PO TID [facility] Last Admin: 06/10/21 09:10 Dose: 100 mg Documented by: Promethazine HCl (Promethazine 25 Mg Tablet) 25 mg PO Q4-6HP PRN PRN Reason: Nausea Sodium Chloride (0.9 % Sodium Chloride 10 Ml Syringe) 10 ml IV Q8 [facility] Last Admin: 06/10/21 05:14 Dose: 10 ml Documented by: ABG Interpretation ABG results: 06/01/21 08:30 ABG Methemoglobin 0.3 L VBG pH 7.41 VBG pCO2 36.2 L VBG pO2 71.0 H VBG HCO3 22.5 L VBG Total CO2 23.6 L VBG O2 Saturation 89.8 H VBG Base Excess -2 A/P Narrative A/P Narrative: A: *DKA-HHS: resolved -A1c 11.9 *Hyperkalemia: 6.7 at outside facility. resolved *Covid pneumonia: *Aspiration PNA: *Dysphagia: *Acute hypoxic respiratory failure: -on 1L NC *COPD (not on home O2) & chronic scarring on imaging per past notes: *CELESTE on likely CKD II: Cr 2.6 at outside facility -resolved *Malnutrition with h/o short bowel syndrome -prealbumin 8 *Anemia, likely chronic: *Tobacco abuse: *HTN: on lisinopril *GERD: *Chr pain/chr abdominal pain: *Chronic pancreatitis: *Transaminitis: 2/2 remdesivir vs hypoxic event vs error (recheck) P: -Insulin Lantus 10-->5 unit HS to avoid hypoglycemia and SSI -Dexamethasone finished -abx finished -dysphagia diet per ST -cont ACEI,norvasc -IS/Acapella, prn nebs -dietary consult -PT/OT -Smoking cessation counseling -ppx: lovenox / home ppi Time Spent With Patient Time: Total time spent is greater than 50% in coordination of care (as documented) at patient's floor/unit and/or counseling patient: QUALITY VTE Deep Vein Thrombosis/Pulmonary Embolism Present on Admission: No
[2021-06-10] MEDS: AMITRIPTYLINE 25 MG TABLET PO SCH (21:02)
[2021-06-10] MEDS: FAMOTIDINE/PF 20 MG/2 ML VIAL IV SCH (21:02)
[2021-06-10] MEDS: INSULIN GLARGINE, HUMAN 1 UNIT/0.01 ML SQ SCH (21:03)
[2021-06-11] MEDS: 0.9 % SODIUM CHLORIDE 10 ML SYRINGE IV SCH ×3 (05:23→21:14)
[2021-06-11 06:49] LABS: Basophils # (Auto) 0.07 K/mcL (0.00-0.30); Basophils % (Auto) 0.6 % (0.0-2.0); Eosinophils # (Auto) 0.21 K/mcL (0.00-0.70); Eosinophils % (Auto) 1.9 % (0.0-7.0); Hematocrit 31.4 % (40.1-51.0); Hemoglobin 10.6 g/dL (13.7-17.5); Lymphocytes # (Auto) 2.11 K/mcL (1.50-4.80); Lymphocytes % (Auto) 18.8 % (15.5-49.0); Mean Cell Volume 92.4 fL (80.0-100.0); Mean Corpuscular HGB Conc 33.8 g/dL (31.0-36.0); Mean Platelet Volume 10.6 fL (7.4-10.4); Monocytes # (Auto) 1.12 K/mcL (0.10-0.90); Neutrophils % (Auto) 68.7 % (38.0-78.0); Platelet Count 471 K/mcL (140-440); Red Cell Distribution Width 13.2 % (11.5-14.5); WBC 11.3 K/mcL (4.5-11.0)
[2021-06-11 07:24] LABS: ALT/SGPT 32 U/L (<40); AST/SGOT 24 U/L (<40); Albumin 2.7 gm/dL (3.2-5.2); Albumin/Globulin Ratio 0.8 (1.0-2.3); Alkaline Phosphatase 242 U/L (39-117); Bilirubin,Total 0.2 mg/dL (0.1-1.0); Blood Urea Nitrogen 15 mg/dL (6-20); Calcium 8.7 mg/dL (8.6-10.4); Carbon Dioxide 23 mmol/L (22-30); Chloride 97 mmol/L (96-108); Globulin 3.5 gm/dL (2.2-3.7); Glomerular Filtration Rate 96; Glucose 103 mg/dL (70-105)
[2021-06-11] MEDS: INSULIN LISPRO 1 UNIT/0.01 ML UNIT SQ SCH ×4 (07:40→21:13)
--- NOTE | 2021-06-11 07:44 | Internal Med Progress Note ---
SUBJECTIVE Subjective Patient information: Note initiated : 06/11/21 at 7:42 am Service Date, if different from initiated Date: [] Patient: John Walker a 55 y/o M admitted on 05/31/21 for Diabetic Ketoacidosis. Chief Complaint: [] Interval history: History of present illness: Mr. Walker is a 55 year old M Presents to the ED in [facility] for generalized weakness and shortness of breath, cough, nausea/vomiting, also complains of abdominal pain abdominal pain. States all the symptoms been going on for about a week. Patient was tested positive for Covid on May 23. Chest x-ray with increased RLL infiltrate and chronic scarring/atelecasis. currently on 3 L NC O2, unknown baseline requirement if any. Patient is cachectic and has a history of dumping syndrome with a history of gastric surgery. He was found to be in DKA with a bicarb of 5 and a pH of 7.13 on VBG. Pseudohyponatremia. Glucose 553. Also hyperkalemic at 6.7, EKG with some peaked T waves and 1 amp of bicarb ordered. Also got calcium gluconate. Lactate within normal limits Vital signs stable. 06/01 Poor sleep last night. DKA improving. On 2 L nasal cannula. 06/02 Laboratory much improved although still has a high white blood cell count. Urine unremarkable. No obvious source of infection. CT abdomen pelvis unremarkable. Will check procalcitonin. Patient currently sleeping no overnight event or new complaints. Awakens to voice but very sleepy. 06/03 Patient feeling much better today. Awake and alert. Liver enzymes jumped quite a bit and will DC remdesivir. Can also be related to possibly hypoxic episode yesterday when he aspirated. 06/04: Been afebrile overnight. Currently on 6L/min oxygen. Episodes of hypoglycemia overnight. Poor appetite, on Pureed moderately thick diet while awaiting SLT evaluation. c/o moderate to severe RLQ abdominal pain. c/o mild-moderate SOB. Denies cough. Denies wheezing. Denies fever chills or sweating. Denies nausea vomiting diarrhea, or constipation. 06/05: Fasting glucose level 68. Poor appetite. Oxygen requirement 8L/min overnight, currently at 6L/min. Poor appetite. c/o mild SOB. c/o productive cough. Denies fever chills or sweating. Denies nausea or vomiting. c/o LLQ abdominal pain. 06/06: Fasting glucose level 134. Good appetite. Ate most food. Oxygen requirement currently at 5L/min. c/o mild SOB. c/o productive cough. Denies fever chills or sweating. Denies nausea or vomiting. c/o chronic lower abdominal pain. 06/07: Afebrile. On 1L/min oxygen. Ate most food, good appetite. Denies SOB. c/o nonproductive cough. Denies fever chills or sweating. Denies nausea or vomiting. c/o chronic lower abdominal pain. ' 06/08: Afebrile and on 1L/min oxygen. Serum sodium 130-->127. Blood glucose fasting 161. Denies cough or sputum production or SOB. Denies fever or chills. Ate most food. Denies nausea vomiting or abdominal pain. 06/09: Afebrile overnight. On 1.5L/min oxygen. Serum sodium 127--->130. Fasting glucose 317. Denies cough or sputum production or SOB. Denies fever or chills. Ate most food. Denies nausea vomiting or abdominal pain. 06/10: Afebrile overnight. On 1.5L/min oxygen. Serum sodium 130. Fasting glucose 41. Denies cough or sputum production or SOB. Denies fever or chills. Ate most food. Denies nausea vomiting or abdominal pain. 06/11 Patient doing better. Just removed oxygen and is now on room air. No overnight events. Wants to smoke. Review of Systems: denies headache/fever/chills/nausea/vomiting/chest or abdominal pain/diarrhea. Otherwise see above. Constitutional Vitals: Vital Signs Temp Pulse Resp BP Pulse Ox 98.2 F 34 L 14 116/66 96 06/11/21 04:39 06/11/21 05:57 06/11/21 05:57 06/11/21 04:39 06/11/21 05:57 Period Temp Pulse Resp BP Sys/Camara Pulse Ox Last 24 Hr 97.8 F-98.7 F 34-93 14-18 110-126/62-79 94-96 Intake and Output 06/10/21 06/11/21 06/11/21 21:59 05:59 13:59 Intake Total 880 250 Output Total 600 Balance 880 -350 Weight 51.075 kg Intake & Output: Intake & Output 06/10/21 06/11/21 06/11/21 21:59 05:59 13:59 Intake Total 880 250 Output Total 600 Balance 880 -350 Weight 51.075 kg Intake: Oral 880 250 Output: Void Amount 600 Other: Meal Dinner Percent of Meal Consumed 75% Feeding Ability Assist with Tray Set Up Urine Appearance Clear Urine Color Bright Yellow Exam: General: Awake, no acute Distress, cachectic Eyes/N/T: EOMI, Head/Neck: neck supple, CV: RRR, No murmurs, Pulm: no wheezing, nonlabored Abd: soft, chronic abdominal tenderness, +BS x4 Ext: no clubbing/cyanosis/edema Neuro: Alert, no focal deficits, moves all extremities, Skin: warm/dry OBJ DATA Labs CBC & Chem 7: 06/11/21 05:03 06/11/21 05:03 Labs: Abnormal Lab Results 06/11/21 06/11/21 06/10/21 05:03 05:03 05:36 WBC 11.3 H RBC 3.40 L Hgb 10.6 L Hct 31.4 L Plt Count 471 H MPV 10.6 H [place] % (Auto) [place] # (Auto) 1.12 H Sodium 131 L 130 L Chloride Glucose 41 L ALT 42 H Alkaline Phosphatase 242 H 278 H Albumin 2.7 L 2.8 L Globulin 3.8 H Albumin/Globulin Ratio 0.8 L 0.7 L 06/10/21 06/09/21 06/09/21 05:36 06:00 06:00 WBC RBC 3.75 L 3.50 L Hgb 11.7 L 11.3 L Hct 34.7 L 33.7 L Plt Count 532 H 540 H MPV 10.5 H 10.5 H [place] % (Auto) 12.1 H [place] # (Auto) 1.11 H 1.28 H Sodium 130 L Chloride 93 L Glucose 291 H ALT Alkaline Phosphatase 237 H Albumin 2.7 L Globulin 3.8 H Albumin/Globulin Ratio 0.7 L Meds: Medications Acetaminophen (Acetaminophen 325 Mg Tablet) 650 mg PO Q4-6HP PRN; Protocol PRN Reason: Per Pain Protocol/Fever > 101 Hydrocodone Bitart/Acetaminophen (Hydrocodone/Apap 7.5/325mg Tablet) 1 tab PO Q6HP PRN; Protocol PRN Reason: Per Pain Protocol Last Admin: 06/10/21 09:10 Dose: 1 tab Documented by: Albuterol/Ipratropium (Ipratropium/Albuterol 3 Ml Ampul.Neb) 3 ml NEB Q4HRT PRN PRN Reason: sob Amitriptyline HCl (Amitriptyline 25 Mg Tablet) 25 mg PO HS [facility] Last Admin: 06/10/21 21:02 Dose: 25 mg Documented by: Amlodipine Besylate (Amlodipine 10 Mg Tablet) 10 mg PO DAILY [facility] Last Admin: 06/10/21 09:11 Dose: 10 mg Documented by: Lipase/Protease/Amylase (Lipase/Protease/Amylase 1 Cap Capsule) 3 cap PO CCHS [facility] Last Admin: 06/10/21 21:02 Dose: 3 cap Documented by: Cyclobenzaprine HCl (Cyclobenzaprine 10 Mg Tablet) 10 mg PO TIDP PRN PRN Reason: Muscle Spasm Dextrose (Dextrose 50% 50 Ml Vial) 0 ml IV UD PRN PRN Reason: Hypoglycemia Diagnostic Test (Pha) (Accu-Chek 1 Each Strip) 1 each FS ACHS [facility] Last Admin: 06/11/21 07:40 Dose: 1 each Documented by: Docusate Sodium (Docusate Sodium 100 Mg Capsule) 100 mg PO BID [facility] Last Admin: 06/10/21 20:48 Dose: Not Given Documented by: Duloxetine HCl (Duloxetine 30 Mg Capsule) 60 mg PO DAILY [facility] Last Admin: 06/10/21 09:11 Dose: 60 mg Documented by: Enoxaparin Sodium (Enoxaparin 40 Mg/0.4 Ml Syringe) 40 mg SQ DAILY [facility] Last Admin: 06/10/21 09:10 Dose: 40 mg Documented by: Famotidine (Famotidine/Pf 20 Mg/2 Ml Vial) 20 mg IV HS [facility] Last Admin: 06/10/21 21:02 Dose: 20 mg Documented by: Fentanyl (Fentanyl 25 Mcg Patch) 25 mcg TOPICAL Q72H [facility] Last Admin: 06/10/21 09:15 Dose: 25 mcg Documented by: Glucose (Dextrose 31 Gm Oral.Susp) 15 gm PO PRN PRN PRN Reason: Hypoglycemia Glucose Oxid/Lactoperoxid/Muramidas (Lactoperoxi/Gluc Oxid/Pot Thio 1 Each Gel..Ea.) 1 each TOPICAL PRN PRN PRN Reason: Dry Mouth Hydralazine HCl (Hydralazine 20 Mg/Ml Vial) 10 mg IV Q4-6HP PRN PRN Reason: Hypertension Insulin Glargine (Insulin Glargine, Human 1 Unit/0.01 Ml) 5 unit SQ HS [facility] Last Admin: 06/10/21 21:03 Dose: 5 unit Documented by: Insulin Human Lispro (Insulin Lispro 1 Unit/0.01 Ml Unit) 0 unit SQ [facility]; Protocol Last Admin: 06/11/21 07:40 Dose: 2 units Documented by: Labetalol HCl (Labetalol 5 Mg/Ml Ml) 0 mg IV Q2HP PRN PRN Reason: Hypertension Lisinopril (Lisinopril 20 Mg Tablet) 40 mg PO DAILY [facility] Last Admin: 06/10/21 09:09 Dose: 40 mg Documented by: Megestrol Acetate (Megestrol Acetate 400 Mg/10 Ml Oral.Susp) 400 mg PO DAILY [facility] Last Admin: 06/10/21 09:11 Dose: Not Given Documented by: Metoclopramide HCl (Metoclopramide 10 Mg/2 Ml Vial) 10 mg IV Q6 PRN PRN Reason: nausea] Morphine Sulfate (Morphine 2 Mg/Ml Vial) 1 - 4 mg IV Q3HP PRN; Protocol PRN Reason: Per Pain Protocol Nicotine (Nicotine 21 Mg Patch) 42 mg TOPICAL DAILY@1000 [facility] Last Admin: 06/10/21 09:13 Dose: 42 mg Documented by: Nystatin (Nystatin 500,000 Units/5 Ml Oral.Susp) 500,000 units SSW QID [facility] Last Admin: 06/10/21 20:49 Dose: Not Given Documented by: Ondansetron HCl (Ondansetron 4 Mg/2 Ml Vial) 4 mg IV Q4-6HP PRN PRN Reason: Nausea And Vomiting Polyethylene Glycol (Polyethylene Glycol 3350 17 Gm Packet) 17 gm PO DAILYP PRN PRN Reason: Constipation Potassium/Phosphorus/Sodium (Neutra Phos 1 Packet) 2 packet PO BID [facility] Last Admin: 06/10/21 21:04 Dose: Not Given Documented by: Pregabalin (Pregabalin 100 Mg Capsule) 100 mg PO TID [facility] Last Admin: 06/10/21 21:02 Dose: 100 mg Documented by: Promethazine HCl (Promethazine 25 Mg Tablet) 25 mg PO Q4-6HP PRN PRN Reason: Nausea Sodium Chloride (0.9 % Sodium Chloride 10 Ml Syringe) 10 ml IV Q8 [facility] Last Admin: 06/11/21 05:23 Dose: 10 ml Documented by: ABG Interpretation ABG results: 06/01/21 08:30 ABG Methemoglobin 0.3 L VBG pH 7.41 VBG pCO2 36.2 L VBG pO2 71.0 H VBG HCO3 22.5 L VBG Total CO2 23.6 L VBG O2 Saturation 89.8 H VBG Base Excess -2 A/P Narrative A/P Narrative: A: *DKA-HHS: resolved -A1c 11.9 *Hyperkalemia: 6.7 at outside facility. resolved *Covid pneumonia: improved *Aspiration PNA: *Dysphagia: *Acute hypoxic respiratory failure: -on 1L NC *COPD (not on home O2) & chronic scarring on imaging per past notes: *CELESTE on likely CKD II: Cr 2.6 at outside facility -resolved *Malnutrition with h/o short bowel syndrome -prealbumin 8 *Anemia, likely chronic: *Tobacco abuse: *HTN: on lisinopril *GERD: *Chr pain/chr abdominal pain: *Chronic pancreatitis: *Transaminitis: 2/2 remdesivir vs hypoxic event, resolved P: -Insulin Lantus 10-->5 unit HS to avoid hypoglycemia and SSI -Dexamethasone finished -abx finished -dysphagia diet per ST -cont ACEI,norvasc -IS/Acapella, prn nebs -dietary consult -PT/OT -Smoking cessation counseling -CM for placement -ppx: lovenox / home ppi Time Spent With Patient Time: Total time spent is greater than 50% in coordination of care (as documented) at patient's floor/unit and/or counseling patient: QUALITY VTE Deep Vein Thrombosis/Pulmonary Embolism Present on Admission: No
[2021-06-11] MEDS: NEUTRA PHOS 1 PACKET PO SCH ×2 (07:47→21:11)
[2021-06-11] MEDS: DULoxetine 30 MG CAPSULE PO SCH (07:47)
[2021-06-11] MEDS: LIPASE/PROTEASE/AMYLASE 1 CAP CAPSULE PO SCH ×4 (07:47→21:13)
[2021-06-11] MEDS: ENOXAPARIN 40 MG/0.4 ML SYRINGE SQ SCH (07:47)
[2021-06-11] MEDS: amLODIPine 10 MG TABLET PO SCH (07:47)
[2021-06-11] MEDS: PREGABALIN 100 MG CAPSULE PO SCH ×3 (07:48→21:12)
[2021-06-11] MEDS: LISINOPRIL 20 MG TABLET PO SCH (07:48)
[2021-06-11] MEDS: MEGESTROL ACETATE 400 MG/10 ML ORAL.SUSP PO SCH (07:49)
[2021-06-11] MEDS: HYDROCODONE/APAP 7.5/325MG TABLET PO PRN ×3 (07:49→21:11)
[2021-06-11] MEDS: NYSTATIN 500,000 UNITS/5 ML ORAL.SUSP SSW SCH ×5 (07:49→22:17)
[2021-06-11] MEDS: DOCUSATE SODIUM 100 MG CAPSULE PO SCH ×2 (07:49→21:13)
--- NOTE | 2021-06-11 11:19 | Discharge Summary ---
Discharge Provider Provider Patient information: Note initiated : 06/11/21 at 11:18 am Service Date, if different from initiated Date: [] Patient: John Walker 55 y/o M admitted on 05/31/21 for Diabetic Ketoacidosis. Chief Complaint: [] Date of admission: 05/31/21 21:13 Discharge date: 06/12/21 Primary care physician: Unknown Unknown Discharge Meds Discharge Medications Home Medications albuterol sulfate 90 mcg/actuation aerosol inhaler (Ventolin HFA) 2 puff INHALATION Q4-6HP PRN 06/01/21 [History Confirmed 06/01/21 Last Taken Unknown] amitriptyline 150 mg tablet 150 mg PO QHS 06/01/21 [History Confirmed 06/01/21 Last Taken Unknown] cyclobenzaprine 10 mg tablet 10 mg PO Q8H PRN 06/01/21 [History Confirmed 06/01/21 Last Taken Unknown] dexlansoprazole 60 mg capsule,biphase delayed release (Dexilant) 80 mg PO DAILY 06/01/21 [History Confirmed 06/01/21 Last Taken Unknown] duloxetine 60 mg capsule,delayed release 60 mg PO DAILY 06/01/21 [History Confirmed 06/01/21 Last Taken Unknown] ergocalciferol (vitamin D2) 1,250 mcg (50,000 unit) capsule (Vitamin D2) 1,250 mcg PO 3XW 06/01/21 [History Confirmed 06/01/21 Last Taken Unknown] fentanyl 50 mcg/hr transdermal patch 1 patch TOPICAL Q72H 06/01/21 [History Confirmed 06/01/21 Last Taken Unknown] hydrocodone 7.5 mg-acetaminophen 325 mg tablet 1 tab PO Q6HP PRN 06/01/21 [History Confirmed 06/01/21 Last Taken Unknown] insulin degludec 100 unit/mL (3 mL) subcutaneous pen (Tresiba FlexTouch U-100 insulin) 20 unit SUBCUT DAILY 06/01/21 [History Confirmed 06/01/21 Last Taken Unknown] mzmnxf-umvqobig-bvkxfub 10,000-32,000-42,000 unit capsule,delayed rel (Zenpep) 3 cap PO QID 06/01/21 [History Confirmed 06/01/21 Last Taken Unknown] lisinopril 20 mg tablet 20 mg PO DAILY 06/01/21 [History Confirmed 06/01/21 Last Taken Unknown] ondansetron 8 mg disintegrating tablet 8 - 24 mg TRANSLINGUAL Q4HP PRN 06/01/21 [History Confirmed 06/01/21 Last Taken Unknown] pregabalin 150 mg capsule 150 mg PO TID 06/01/21 [History Confirmed 06/01/21 Last Taken Unknown] promethazine 25 mg tablet 25 mg PO Q4-6HP PRN 06/01/21 [History Confirmed 06/01/21 Last Taken Unknown] amlodipine 10 mg tablet 5 mg PO DAILY #30 tab 06/11/21 [Rx Last Taken Unknown] COURSE Hospital Course Hospital course: History of present illness: Mr. Walker is a 55 year old M Presents to the ED in [facility] for generalized weakness and shortness of breath, cough, nausea/vomiting, also complains of abdominal pain abdominal pain. States all the symptoms been going on for about a week. Patient was tested positive for Covid on May 23. Chest x-ray with i ncreased RLL infiltrate and chronic scarring/atelecasis. currently on 3 L NC O2, unknown baseline requirement if any. Patient is cachectic and has a history of dumping syndrome with a history of gastric surgery. He was found to be in DKA with a bicarb of 5 and a pH of 7.13 on VBG. Pseudohyponatremia. Glucose 553. Also hyperkalemic at 6.7, EKG with some peaked T waves and 1 amp of bicarb ordered. Also got calcium gluconate. Lactate within normal limits Vital signs stable. 06/01 Poor sleep last night. DKA improving. On 2 L nasal cannula. 06/02 Laboratory much improved although still has a high white blood cell count. Urine unremarkable. No obvious source of infection. CT abdomen pelvis unremarkable. Will check procalcitonin. Patient currently sleeping no overnight event or new complaints. Awakens to voice but very sleepy. 06/03 Patient feeling much better today. Awake and alert. Liver enzymes jumped quite a bit and will DC remdesivir. Can also be related to possibly hypoxic episode yesterday when he aspirated. 06/04: Been afebrile overnight. Currently on 6L/min oxygen. Episodes of hypoglycemia overnight. Poor appetite, on Pureed moderately thick diet while awaiting SLT evaluation. c/o moderate to severe RLQ abdominal pain. c/o mild-moderate SOB. Denies cough. Denies wheezing. Denies fever chills or sweating. Denies nausea vomiting diarrhea, or constipation. 06/05: Fasting glucose level 68. Poor appetite. Oxygen requirement 8L/min overnight, currently at 6L/min. Poor appetite. c/o mild SOB. c/o productive cough. Denies fever chills or sweating. Denies nausea or vomiting. c/o LLQ abdominal pain. 06/06: Fasting glucose level 134. Good appetite. Ate most food. Oxygen requirement currently at 5L/min. c/o mild SOB. c/o productive cough. Denies fever chills or sweating. Denies nausea or vomiting. c/o chronic lower abdominal pain. 06/07: Afebrile. On 1L/min oxygen. Ate most food, good appetite. Denies SOB. c/o nonproductive cough. Denies fever chills or sweating. Denies nausea or vomiting. c/o chronic lower abdominal pain. ' 06/08: Afebrile and on 1L/min oxygen. Serum sodium 130-->127. Blood glucose fasting 161. Denies cough or sputum production or SOB. Denies fever or chills. Ate most food. Denies nausea vomiting or abdominal pain. 06/09: Afebrile overnight. On 1.5L/min oxygen. Serum sodium 127--->130. Fasting glucose 317. Denies cough or sputum production or SOB. Denies fever or chills. Ate most food. Denies nausea vomiting or abdominal pain. 06/10: Afebrile overnight. On 1.5L/min oxygen. Serum sodium 130. Fasting glucose 41. Denies cough or sputum production or SOB. Denies fever or chills. Ate most food. Denies nausea vomiting or abdominal pain. 06/11 Patient doing better. Just removed oxygen and is now on room air. No overnight events. Wants to smoke. 06/12 No overnight event or new complaints. SNF unable to take patient till tomorrow so the family will pick him up today and admit him directly tomorrow to the rehab, up in [facility]. Patient high risk for readmission given comorbidities A: *DKA-HHS: resolved -A1c 11.9 *Hyperkalemia: 6.7 at outside facility. resolved *Covid pneumonia: improved *Aspiration PNA: *Dysphagia: *Acute hypoxic respiratory failure: *COPD (not on home O2) & chronic scarring on imaging per past notes: *CELESTE on likely CKD II: Cr 2.6 at outside facility *Malnutrition with h/o short bowel syndrome -prealbumin 8 *Anemia, likely chronic: *Tobacco abuse: *HTN: on lisinopril *GERD: *Chr pain/chr abdominal pain: *Chronic pancreatitis: *Transaminitis: 2/2 remdesivir vs hypoxic event, resolved Discharge diagnosis: DKA HHS hyperkalemia Covid pneumonia aspiration pneumonia dysphagia acute h Secondary discharge diagnosis: Acute hypoxic respiratory failure COPD acute kidney injury malnutrition chronic anemia tobacco abuse hypertension GERD chronic pain chronic abdominal pain chronic pancreatitis Time Spent with Patient Time attestation: Total time spent providing and/or coordinating discharge services: Time spent: Greater than 30 minutes EXAM Constitutional Vitals: Temp Pulse Resp BP Pulse Ox 98.0 F 102 H 12 132/89 99 06/11/21 07:41 06/11/21 07:41 06/11/21 07:41 06/11/21 07:41 06/11/21 08:00 Discharge Data Data Completed and Pending Labs on day of discharge: Labs from last 24 hours 06/11/21 06/11/21 05:03 05:03 WBC 11.3 H RBC 3.40 L Hgb 10.6 L Hct 31.4 L MCV 92.4 MCH 31.2 MCHC 33.8 RDW 13.2 Plt Count 471 H MPV 10.6 H Neut % (Auto) 68.7 Lymph % (Auto) 18.8 [place] % (Auto) 10.0 Eos % (Auto) 1.9 Baso % (Auto) 0.6 Lymph # (Auto) 2.11 [place] # (Auto) 1.12 H Eos # (Auto) 0.21 Baso # (Auto) 0.07 Absolute Neutrophils 7.74 Sodium 131 L Potassium 4.5 Chloride 97 Carbon Dioxide 23 Anion Gap 11.0 BUN 15 Creatinine 0.9 GFR Calculation 96 Glucose 103 Calcium 8.7 Total Bilirubin 0.2 AST 24 ALT 32 Alkaline Phosphatase 242 H Total Protein 6.2 Albumin 2.7 L Globulin 3.5 Albumin/Globulin Ratio 0.8 L Discharge Plan Patient/Caregiver Discharge Instructions Activity: increase activity as tolerated Diet: Consistent Carbohydrate Instructions: COVID-19, Amlodipine (By mouth), Diabetic Ketoacidosis (DC), Aspiration Pneumonia (DC) Activity Restrictions/Additional Instructions: Follow-up with PCP in 3 to 7 days . Increase activity as tolerated. Consistent carbohydrate diet as tolerated. patient will need home oxygen for Covid pneumonia. Follow-up with [facility]. Call your physician for sustained fever greater than 100.5, increase/worsening sputum/cough, increase in weakness, or any questions/concerns. This discharge packet is provided to you to help keep you informed about your care. We want to ensure you get everything you need when you go home. You will also be receiving a call from us in a few days to follow up with you and see how you are doing since your discharge. This gives us a chance to listen to any concerns you maybe experiencing since you were discharged or any additional needs you may have, as well as providing us feedback on your care experience. We strive to always provide excellent care and thank you for your feedback and for choosing [facility]. Prescriptions: New amlodipine 10 mg Tablet 5 mg PO DAILY Qty: 30 0RF Continued cyclobenzaprine 10 mg tablet 10 mg PO Q8H PRN (Reason: Pain) 0RF Label Comments: TAKE ONE TABLET BY MOUTH EVERY 6 TO 8 HOURS NEEDED amitriptyline 150 mg tablet 150 mg PO QHS 0RF Dexilant 60 mg capsule,biphase delayed releas 80 mg PO DAILY 0RF Label Comments: TAKE ONE CAPSULE BY MOUTH EVERY DAY fentanyl 50 mcg/hr patch 72 hour 1 patch topical Q72H 0RF Label Comments: APPLY ONE PATCH TRANSDERMALLY EVERY THREE DAYS REMOVE OLD PATCH BEFORE APPLYING NEW PATCH hydrocodone-acetaminophen 7.5-325 mg tablet 1 tab PO Q6HP PRN (Reason: Pain) 0RF Label Comments: TAKE ONE TABLET BY MOUTH EVERY 6 HOURS NEEDED FOR PAIN max DAILY DOSE of TWO TABLETS lisinopril 20 mg tablet 20 mg PO DAILY 0RF Label Comments: TAKE ONE TABLET BY MOUTH EVERY DAY ondansetron 8 mg tablet,disintegrating 8 - 24 mg translingual Q4HP PRN (Reason: Nausea) 0RF promethazine 25 mg tablet 25 mg PO Q4-6HP PRN (Reason: Nausea) 0RF Label Comments: TAKE ONE TABLET BY MOUTH EVERY 4 TO 6 HOURS NEEDED pregabalin 150 mg capsule 150 mg PO TID 0RF Label Comments: TAKE ONE CAPSULE BY MOUTH THREE TIMES DAILY Zenpep 10,000-32,000 -42,000 unit capsule,delayed release(DR/EC) 3 cap PO QID 0RF Rx Instructions: with meals or snacks, do not crush Tresiba FlexTouch U-100 100 unit/mL (3 mL) insulin pen 20 unit SUBCUT DAILY 0RF Label Comments: INJECT 20 UNITS SUBCUTANEOUSLY EVERY MORNING albuterol sulfate [Ventolin HFA] 90 mcg/actuation HFA aerosol inhaler 2 puff INHALATION Q4-6HP PRN (Reason: Shortness Of Breath) 0RF Label Comments: INHALE TWO PUFFS BY MOUTH EVERY 4 TO 6 HOURS NEEDED FOR SHORTNESS OF BREATH duloxetine 60 mg capsule,delayed release(DR/EC) 60 mg PO DAILY 0RF Label Comments: TAKE ONE CAPSULE BY MOUTH EVERY DAY ergocalciferol (vitamin D2) [Vitamin D2] 1,250 mcg (50,000 unit) capsule 1,250 mcg PO 3XW 0RF Label Comments: TAKE ONE CAPSULE BY MOUTH 3 TIMES PER WEEK Follow Up Plan Follow up with: [facility] [Other] (Dr. Salma Ivey Please call and schedule a hospital follow up to be seen in 3-7 days.) Patient Disposition: Home, Self-Care Prognosis: Undetermined Rehab Potential: Fair I certify that the patient requires SNF services: Yes Overall status at discharge: patient is progressing back to baseline Discharge Orders: Discharge Order (Routine); Ordered 06/11/21 Ordered By: Franco Flores [facility] VTE Deep Vein Thrombosis/Pulmonary Embolism Present on Admission: No
[2021-06-11] MEDS: NICOTINE 21 MG PATCH TOPICAL SCH (12:51)
[2021-06-11] MEDS: INSULIN GLARGINE, HUMAN 1 UNIT/0.01 ML SQ SCH (21:10)
[2021-06-11] MEDS: AMITRIPTYLINE 25 MG TABLET PO SCH (21:11)
[2021-06-11] MEDS: FAMOTIDINE/PF 20 MG/2 ML VIAL IV SCH (21:11)
[2021-06-12] MEDS: 0.9 % SODIUM CHLORIDE 10 ML SYRINGE IV SCH (05:26)
[2021-06-12] MEDS: HYDROCODONE/APAP 7.5/325MG TABLET PO PRN (07:04)
[2021-06-12] MEDS: LIPASE/PROTEASE/AMYLASE 1 CAP CAPSULE PO SCH (07:05)
[2021-06-12] MEDS: INSULIN LISPRO 1 UNIT/0.01 ML UNIT SQ SCH (07:12)
[2021-06-12] MEDS: DOCUSATE SODIUM 100 MG CAPSULE PO SCH (08:19)
[2021-06-12] MEDS: ENOXAPARIN 40 MG/0.4 ML SYRINGE SQ SCH (08:19)
[2021-06-12] MEDS: DULoxetine 30 MG CAPSULE PO SCH (08:19)
[2021-06-12] MEDS: PREGABALIN 100 MG CAPSULE PO SCH (08:20)
[2021-06-12] MEDS: amLODIPine 10 MG TABLET PO SCH (08:20)
[2021-06-12] MEDS: NEUTRA PHOS 1 PACKET PO SCH (08:20)
[2021-06-12] MEDS: MEGESTROL ACETATE 400 MG/10 ML ORAL.SUSP PO SCH (08:20)
[2021-06-12] MEDS: NYSTATIN 500,000 UNITS/5 ML ORAL.SUSP SSW SCH (08:20)
[2021-06-12] MEDS: NICOTINE 21 MG PATCH TOPICAL SCH (08:21)
[2021-06-12] MEDS: LISINOPRIL 20 MG TABLET PO SCH (08:21)
[2021-06-12 18:01] LABS: Vit D 1,25 Dihydroxy 42 pg/mL (18-72)
== END 2021-06-12 08:15 | disposition home or self-care (01) | DRG 637 ==
LOC: ICU 21:13 → MEDSUR 06-08 16:35
PROVIDERS: ADMIT Internal Medicine; ATTEND Internal Medicine